=== PATIENT | female | born 1965 | race Hispanic/Latino ===

== ENCOUNTER 2019-08-26 03:59 | Emergency (ER) | payer OTHER ==
[2019-08-26] MEDS ORDERED: IBUPROFEN 400 MG TAB ONE (05:05)
[2019-08-26] MEDS ORDERED: dexAMETHasone 4 MG TAB ONE (05:05)
[2019-08-26] MEDS ORDERED: IBUPROFEN 200 MG TAB PO ONE (05:05)
--- NOTE | 2019-08-26 05:46 | EDPHYS ---
Physician Documentation [facility] Name: Maci Martines Age: 54 yrs Sex: Female : 1965 Arrival Date: 08/26/2019 Time: 04:00 Bed 5 Private MD: ED Physician Roderick Jackson HPI: 08/26 05:02 This 54 yrs old Female presents to ER via Ambulatory with complaints of karuna Shoulder Pain. 05:02 The patient or guardian complains of decreased range of motion, an injury, pain. right karuna shoulder. Context: The problem was sustained outdoors. Onset: The symptoms/episode began/occurred 2 week(s) ago. Modifying factors: the symptoms are alleviated by nothing. remaining still, The symptoms are aggravated by lifting weight, movement. Associated signs and symptoms: The patient has no apparent associated signs or symptoms. Severity of symptoms: At their worst the symptoms were moderate, in the emergency department the symptoms are unchanged. Treatment prior to arrival includes: no previous treatment. The patient has not experienced similar symptoms in the past. 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 - Social history:: Smoking status: Patient/guardian denies using tobacco, Patient/guardian denies using alcohol, street drugs. - Ebola Screening: : Patient negative for fever greater than or equal to 101.5 degrees Fahrenheit, and additional compatible Ebola Virus Disease symptoms Patient denies exposure to infectious person Patient denies travel to an Ebola-affected area in the 21 days before illness onset. - Family history:: not pertinent. ROS: 05:02 Constitutional: Negative for fever, chills, and weight loss, Eyes: Negative for injury, karuna pain, redness, and discharge, ENT: Negative for injury, pain, and discharge, Neck: Negative for injury, pain, and swelling, Cardiovascular: Negative for chest pain, palpitations, and edema, Respiratory: Negative for shortness of breath, cough, wheezing, and pleuritic chest pain, Abdomen/GI: Negative for abdominal pain, nausea, vomiting, diarrhea, and constipation, Back: Negative for injury and pain, : Negative for injury, bleeding, discharge, and swelling, Skin: Negative for injury, rash, and discoloration, Neuro: Negative for headache, weakness, numbness, tingling, and seizure, Psych: Negative for depression, anxiety, suicide ideation, homicidal ideation, and hallucinations, Allergy/Immunology: Negative for hives, rash, and allergies, Endocrine: Negative for neck swelling, polydipsia, polyuria, polyphagia, and marked weight changes, Hematologic/Lymphatic: Negative for swollen nodes, abnormal bleeding, and unusual bruising. 05:02 MS/extremity: Positive for decreased range of motion, pain, tenderness, of the anterior aspect of right shoulder and posterior aspect of right shoulder. Exam: 05:02 Constitutional: This is a well developed, well nourished patient who is awake, alert, karuna and in no acute distress. Head/Face: Normocephalic, atraumatic. Eyes: Pupils equal round and reactive to light, extra-ocular motions intact. Lids and lashes normal. Conjunctiva and sclera are non-icteric and not injected. Cornea within normal limits. Periorbital areas with no swelling, redness, or edema. ENT: Nares patent. No nasal discharge, no septal abnormalities noted. Tympanic membranes are normal and external auditory canals are clear. Oropharynx with no redness, swelling, or masses, exudates, or evidence of obstruction, uvula midline. Mucous membranes moist. Neck: Trachea midline, no thyromegaly or masses palpated, and no cervical lymphadenopathy. Supple, full range of motion without nuchal rigidity, or vertebral point tenderness. No Meningismus. Chest/axilla: Normal chest wall appearance and motion. Nontender with no deformity. No lesions are appreciated. Cardiovascular: Regular rate and rhythm with a normal S1 and S2. No gallops, murmurs, or rubs. Normal PMI, no JVD. No pulse deficits. Respiratory: Lungs have equal breath sounds bilaterally, clear to auscultation and percussion. No rales, rhonchi or wheezes noted. No increased work of breathing, no retractions or nasal flaring. Abdomen/GI: Soft, non-tender, with normal bowel sounds. No distension or tympany. No guarding or rebound. No evidence of tenderness throughout. Back: No spinal tenderness. No costovertebral tenderness. Full range of motion. Skin: Warm, dry with normal turgor. Normal color with no rashes, no lesions, and no evidence of cellulitis. MS/ Extremity: Pulses equal, no cyanosis. Neurovascular intact. Full, normal range of motion. Neuro: Awake and alert, GCS 15, oriented to person, place, time, and situation. Cranial nerves II-XII grossly intact. Motor strength 5/5 in all extremities. Sensory grossly intact. Cerebellar exam normal. Normal gait. Psych: Awake, alert, with orientation to person, place and time. Behavior, mood, and affect are within normal limits. Vital Signs: 04:11 BP 145 / 120; Pulse 92; Resp 19; Temp 97.8; Pulse Ox 99% ; Weight 75.75 kg; Height 5 rr5 ft. 0 in. (152.40 cm); Pain 10/10; 04:57 BP 142 / 70; Pulse 97; Resp 19; Pulse Ox 99% ; rr5 05:56 BP 133 / 67; Pulse 85; Resp 16; Pulse Ox 99% ; rr5 04:11 Body Mass Index 32.61 (75.75 kg, 152.40 cm) rr5 MDM: 04:54 Patient medically screened. [facility] 05:04 Data reviewed: vital signs, nurses notes, radiologic studies, plain films. [facility] 08/26 04:38 Order name: Shoulder Right (2 View) XRAY rr5 08/26 05:02 Order name: Sling; Complete Time: 05:53 [facility] Administered Medications: 05:07 Drug: Motrin 600 mg Route: PO; rr5 05:56 Follow up: Response: No adverse reaction rr5 05:07 Drug: Decadron 4 mg Route: PO; rr5 05:55 Follow up: Response: No adverse reaction rr5 Disposition: 08/26/19 05:45 Discharged to Home. Impression: Pain in right shoulder. - Condition is Stable. - Discharge Instructions: Joint Pain, Musculoskeletal Pain, Shoulder Pain, Shoulder Pain, [id number]. - Prescriptions for Tylenol- Codeine #3 300-30 mg Oral Tablet - take 2 tablet by ORAL route every 6 hours As needed; 30 tablet. Motrin IB 200 mg Oral Tablet - take 2 tablet by ORAL route every 6 hours As needed as needed with food; 30 tablet. Valium 2 mg Oral Tablet - take 1 tablet by ORAL route every 8 hours As needed; 20 tablet. Medrol (Maco) 4 mg Oral Tablets, Dose Pack - take 1 tablet by ORAL route as directed - follow package instructions; 1 packet. - Medication Reconciliation Form, Thank You Letter, Antibiotic Education, Prescription Opioid Use form. - Follow up: Private Physician; When: 2 - 3 days; Reason: Recheck today's complaints, Continuance of care, Re-evaluation by your physician. Follow up: Steve Oneal; When: 2 - 3 days; Reason: Recheck today's complaints, Continuance of care, Re-evaluation by your physician. - Problem is new. - Symptoms have improved. Signatures: Dispatcher [employer] EDMO Roderick Jackson MD MD cha Roque, Raymond RN RN rr5 Corrections: (The following items were deleted from the chart) 05:57 05:45 08/26/2019 05:45 Discharged to Home. Impression: Pain in right shoulder. rr5 Condition is Stable. Discharge Instructions: Joint Pain, Musculoskeletal Pain, Shoulder Pain, Shoulder Pain, [id number]. Prescriptions for Tylenol-Codeine #3 300-30 mg Oral Tablet - take 2 tablet by ORAL route every 6 hours As needed; 30 tablet, Motrin IB 200 mg Oral Tablet - take 2 tablet by ORAL route every 6 hours As needed as needed with food; 30 tablet, Valium 2 mg Oral Tablet - take 1 tablet by ORAL route every 8 hours As needed; 20 tablet. and Forms are Medication Reconciliation Form, Thank You Letter, Antibiotic Education, Prescription Opioid Use. Follow up: Private Physician; When: 2 - 3 days; Reason: Recheck today's complaints, Continuance of care, Re-evaluation by your physician. Follow up: Steve Oneal; When: 2 - 3 days; Reason: Recheck today's complaints, Continuance of care, Re-evaluation by your physician. Problem is new. Symptoms have improved. karuna
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
[2019-08-26 06:52] VITALS: BP 133/67; TEMP 97.8; O2SAT 99
--- NOTE | 2019-08-26 12:04 | RAD REPORT ---
EXAM DESCRIPTION: RAD - Shoulder Right 2 View - 08/26/2019 5:27 am CLINICAL HISTORY: PAIN COMPARISON: No comparisons FINDINGS: No fracture or dislocation seen.
== END 2019-08-26 05:57 | disposition home or self-care (01) ==
LOC: ER 03:59
DX: M25.511 Pain in right shoulder (principal); E11.9 Type 2 diabetes mellitus without complications; I10 Essential (primary) hypertension; F41.9 Anxiety disorder, unspecified
CPT/HCPCS: 99284; J8540

== ENCOUNTER 2019-12-10 21:58 | Emergency (ER) | payer OTHER ==
--- OUTSIDE RECORDS SUMMARY | 2019-12-10 22:01 | XMS REPORT ---
:1965 [facility] Address [address] [place] [address] Dr. Collins [address] [place] [id number] Care Team Providers Name Role Phone Unavailable Unavailable Unavailable Problems This patient has no known problems. Allergies, Adverse Reactions, Alerts This patient has no known allergies or adverse reactions. Medications This patient has no known medications.
[2019-12-10] MEDS ORDERED: LIDOCAINE 1% MPF 5 ML VIAL ONE (22:22)
--- NOTE | 2019-12-10 22:52 | ER ---
Nurse's Notes [facility] Name: Maci Martines Age: 54 yrs Sex: Female : 1965 Arrival Date: 12/10/2019 Time: 22:01 Bed 26 Private MD: Diagnosis: Cutaneous abscess of groin Presentation: 12/10 22:05 Presenting complaint: Patient states: Pt reports boil her vaginal area states it ea started two days ago got and got worse today. Pt reports it hurts to walk. States she started having a migraine. Transition of care: patient was not received from another setting of care. Onset of symptoms was December 10, 2019. Risk Assessment: Do you want to hurt yourself or someone else? Patient reports no desire to harm self or others. Initial Sepsis Screen: Does the patient meet any 2 criteria? HR > 90 bpm. Does the patient have a suspected source of infection? No. Patient's initial sepsis screen is negative. Care prior to arrival: None. 22:05 Method Of Arrival: Ambulatory ea 22:05 Acuity: TAYA 3 ea Triage Assessment: 22:10 General: Appears in no apparent distress. uncomfortable, Behavior is calm, cooperative, vc appropriate for age. Pain: Complains of pain in groin. RN LVN: 22:07 LMP N/A - Hysterectomy ea Historical: - Allergies: 22:09 No Known Allergies; ea - Home Meds: 22:09 Humalog Sub-Q [Active]; Lantus Sub-Q [Active]; trazodone 50 mg Oral tab nightly ea [Active]; Synthroid 100 mcg Oral tab 1 tab once daily [Active]; - PMHx: 22:09 Anxiety; Fibromyalgia; Diabetes - IDDM; Hypertension; ulcerative colitis; Migraines; ea - PSHx: 22:09 Hysterectomy; ea - Immunization history:: Adult Immunizations up to date. - Coronavirus screen:: The patient has NOT traveled to [place] in the past 14 days. - Social history:: Smoking status: Patient denies any tobacco usage or history of. - Ebola Screening: : No symptoms or risks identified at this time. Screenin:08 Abuse screen: Denies threats or abuse. Nutritional screening: No deficits noted. ea Tuberculosis screening: No symptoms or risk factors identified. Fall Risk None identified. Assessment: 22:30 General: Appears in no apparent distress. uncomfortable, Behavior is calm, cooperative, vc appropriate for age. Pain: Complains of pain in groin. Neuro: Level of Consciousness is awake, alert, obeys commands, Oriented to person, place, time. Cardiovascular: Patient's skin is warm and dry. Respiratory: Respiratory effort is even, unlabored, Respiratory pattern is regular, symmetrical. GI: No signs and/or symptoms were reported involving the gastrointestinal system. : Reports vaginal bleeding that is pain and inflammation to pubis area. EENT: No signs and/or symptoms were reported regarding the EENT system. Derm: Wound noted mons pubis and prepuce. Musculoskeletal: Circulation, motion, and sensation intact. Range of motion: intact in all extremities. 23:00 Reassessment: Patient and/or family updated on plan of care and expected duration. Pain vc level reassessed. Patient is alert, oriented x 3, equal unlabored respirations, skin warm/dry/pink. Patient states feeling better. Patient states symptoms have improved. Vital Signs: 22:07 BP 157 / 100; Pulse 113; Resp 18; Temp 98.1; Pulse Ox 98% on R/A; Weight 76.66 kg; ea Height 5 ft. (152.40 cm); Pain 10/10; 23:00 BP 148 / 96; Pulse 105; Resp 18; Pulse Ox 98% on R/A; vc 22:07 Body Mass Index 33.01 (76.66 kg, 152.40 cm) ea ED Course: 22:01 Patient arrived in ED. ag3 22:07 Triage completed. ea 22:09 Arm band placed on right wrist. Patient placed in an exam room, on a stretcher, on ea pulse oximetry. 22:09 Patient has correct armband on for positive identification. Placed in gown. Bed in low ea position. Call light in reach. 22:18 Robinson Montero NP is PHCP. pm1 22:18 Nico Echavarria MD is Attending Physician. pm1 22:27 Syeda Lehman RN is Primary Nurse. vc 22:45 Assist provider with I \T\ D: of an abscess on Set up I\T\D tray. Performed by Robinson Montero NP Culture sent to lab. Wound packed. iodoform gauze, Dressing with 4X4s, Patient tolerated well. 22:45 Patient did not have IV access during this emergency room visit. vc 22:51 Acosta Subramanian MD is Referral Physician. pm1 23:38 Wound Culture Sent. vc Administered Medications: 23:02 Drug: Tetanus-Diphtheria Toxoid Adult 0.5 ml {Hearing Aid Assembly Supervisor: [employer]. Exp: vc 11/08/2021. Lot #: [id number]. } Route: IM; Site: right deltoid; 23:15 Follow up: Response: No adverse reaction vc 23:11 Drug: Dana 10 mg-325 mg 1 tabs Route: PO; vc 23:42 Follow up: Response: No adverse reaction; Medication administered at discharge. vc 23:17 Drug: Clindamycin 600 mg Route: IM; Site: right ventrogluteal; vc 23:42 Follow up: Response: Medication administered at discharge. vc 23:18 Drug: Lidocaine (1 %) 1 amp Volume: 5 ml; Route: Infiltration; vc Outcome: 22:51 Discharge ordered by MD. pm1 23:15 Discharged to home ambulatory. vc 23:15 Condition: good 23:15 Discharge instructions given to patient. 23:19 Patient left the ED. vc Signatures: Robinson Montero, COMMUNITY CENTER COORDINATOR COMMUNITY CENTER COORDINATOR pm1 Shahnaz Case RN RN ea Gomez, Alice ag3 Syeda Lehman RN RN vc
--- NOTE | 2019-12-10 22:52 | EDPHYS ---
Physician Documentation [facility] Name: Maci Martines Age: 54 yrs Sex: Female : 1965 Arrival Date: 12/10/2019 Time: 22:01 Bed 26 Private MD: ED Physician Nico Echavarria HPI: 12/10 22:35 This 54 yrs old Female presents to ER via Ambulatory with complaints of pm1 Vaginal Pain. 22:35 the patient presents with a swollen area of the groin. Description: swollen, tense. pm1 Onset: The symptoms/episode began/occurred 2 day(s) ago. Possible cause(s): unknown. Associated signs and symptoms: Pertinent positives: drainage, Pertinent negatives: fever. Modifying factors: the symptoms are alleviated by nothing, the symptoms are aggravated by movement, walking. Severity of symptoms: in the emergency department the symptoms are actually worse. The patient has not experienced similar symptoms in the past. The patient has not recently seen a physician. 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 - Coronavirus screen:: The patient has NOT traveled to [place] in the past 14 days. - Social history:: Smoking status: Patient denies any tobacco usage or history of. - Ebola Screening: : No symptoms or risks identified at this time. ROS: 22:35 Constitutional: Negative for fever, chills, and weight loss, Cardiovascular: Negative pm1 for chest pain, palpitations, and edema, Respiratory: Negative for shortness of breath, cough, wheezing, and pleuritic chest pain, Abdomen/GI: Negative for abdominal pain, nausea, vomiting, diarrhea, and constipation, Back: Negative for injury and pain, : Negative for injury, bleeding, discharge, and swelling, MS/Extremity: Negative for injury and deformity. 22:35 Neuro: Negative for weakness, numbness, tingling, and seizure, Positve for headache 22:35 Skin: Positive for swelling, of the groin. Exam: 23:56 Constitutional: This is a well developed, well nourished patient who is awake, alert, pm1 and in no acute distress. Head/Face: Normocephalic, atraumatic. Neck: Trachea midline, no thyromegaly or masses palpated, and no cervical lymphadenopathy. Supple, full range of motion without nuchal rigidity, or vertebral point tenderness. No Meningismus. Chest/axilla: Normal chest wall appearance and motion. Nontender with no deformity. No lesions are appreciated. Cardiovascular: Regular rate and rhythm with a normal S1 and S2. No gallops, murmurs, or rubs. Normal PMI, no JVD. No pulse deficits. Respiratory: Lungs have equal breath sounds bilaterally, clear to auscultation and percussion. No rales, rhonchi or wheezes noted. No increased work of breathing, no retractions or nasal flaring. Abdomen/GI: Soft, non-tender, with normal bowel sounds. No distension or tympany. No guarding or rebound. No evidence of tenderness throughout. 23:56 Skin: Appearance: normal except for affected area, abscess, that is small, of the mons pm1 pubis, with pointing, that is subtle, no surrounding cellulitis, no drainage. 23:58 : chaperoned by Syeda THAO. pm1 Vital Signs: 22:07 BP 157 / 100; Pulse 113; Resp 18; Temp 98.1; Pulse Ox 98% on R/A; Weight 76.66 kg; ea Height 5 ft. (152.40 cm); Pain 10/10; 23:00 BP 148 / 96; Pulse 105; Resp 18; Pulse Ox 98% on R/A; vc 22:07 Body Mass Index 33.01 (76.66 kg, 152.40 cm) ea Procedures: 22:47 I \T\ D: Incision and drainage was performed for an abscess of the left mons pubis pm1 Prepped with Betadine, Anesthetized with 4 ml's 1% Lidocaine. Incised with #11 blade. Drained small amount serosanguinous fluid. Packed with iodoform gauze, Dressing: non-Adherent dressing, the patient tolerated the procedure well. MDM: 22:18 Patient medically screened. pm1 22:47 Data reviewed: vital signs. Data interpreted: Pulse oximetry: on room air is 98 %. pm1 Interpretation: normal. Counseling: I had a detailed discussion with the patient and/or guardian regarding: the historical points, exam findings, and any diagnostic results supporting the discharge/admit diagnosis, the need for outpatient follow up, for definitive care, a general surgeon, to return to the emergency department if symptoms worsen or persist or if there are any questions or concerns that arise at home. 12/10 22:50 Order name: Wound Culture pm1 12/10 22:28 Order name: Incision \T\ Drainage Setup; Complete Time: 22:32 pm1 Administered Medications: 23:02 Drug: Tetanus-Diphtheria Toxoid Adult 0.5 ml {Interactive Web Developer: test company. Exp: vc 11/08/2021. Lot #: [id number]. } Route: IM; Site: right deltoid; 23:15 Follow up: Response: No adverse reaction vc 23:11 Drug: [place] 10 mg-325 mg 1 tabs Route: PO; vc 23:42 Follow up: Response: No adverse reaction; Medication administered at discharge. vc 23:17 Drug: Clindamycin 600 mg Route: IM; Site: right ventrogluteal; vc 23:42 Follow up: Response: Medication administered at discharge. vc 23:18 Drug: Lidocaine (1 %) 1 amp Volume: 5 ml; Route: Infiltration; vc Disposition: 12/10/19 22:51 Discharged to Home. Impression: Cutaneous abscess of groin. - Condition is Stable. - Discharge Instructions: Skin Abscess, Incision and Drainage. - Prescriptions for Clindamycin HCl 300 mg Oral Capsule - take 1 capsule by ORAL route every 6 hours for 10 days; 40 capsule. Tylenol- Codeine #3 300-30 mg Oral Tablet - take 2 tablets by ORAL route every 6 hours As needed; 20 tablet. - Medication Reconciliation Form, Thank You Letter, Antibiotic Education, Prescription Opioid Use form. - Follow up: Emergency Department; When: As needed; Reason: Worsening of condition. Follow up: Acosta Subramanian MD; When: 2 - 3 days; Reason: Recheck today's complaints, Continuance of care, Re-evaluation by your physician. - Problem is new. - Symptoms have improved. Addendum: 12/17/2019 16:32 Co-signature as Attending Physician, Nico Echavarria MD. m a2 Signatures: Dispatcher [employer] Robinson Magaña NP OPERATOR AUTOMATED PROCESS pm1 Shahnaz Case, RN RN Nico Jonas MD MD ma2 Syeda Lehman RN RN vc Corrections: (The following items were deleted from the chart) 12/10 23:19 22:51 12/10/2019 22:51 Discharged to Home. Impression: Cutaneous abscess of groin. vc Condition is Stable. Forms are Medication Reconciliation Form, Thank You Letter, Antibiotic Education, Prescription Opioid Use. Follow up: Emergency Department; When: As needed; Reason: Worsening of condition. Follow up: Acosta Subramanian; When: 2 - 3 days; Reason: Recheck today's complaints, Continuance of care, Re-evaluation by your physician. Problem is new. Symptoms have improved. pm1 23:56 22:35 Neuro: Negative for headache, weakness, numbness, tingling, and seizure, pm1 pm1 23:58 23:56 : Pelvic Exam: External exam: pm1 pm1
[2019-12-10] MEDS ORDERED: HYDROCODONE/APAP 10/325 TAB ONE (22:59)
[2019-12-10] MEDS ORDERED: TETANUS & DIPHTHERIA TOX,ADULT 0.5 ML VIAL ONE (22:59)
[2019-12-10] MEDS ORDERED: CLINDAMYCIN IV 150 MG/ML (4 mL) VIAL ONE (22:59)
[2019-12-11 01:45] VITALS: BP 157/100; TEMP 98.1; O2SAT 98
== END 2019-12-10 23:19 | disposition home or self-care (01) ==
LOC: ER 21:58
PROC: 0J9C0ZZ Drainage of Pelvic Region Subcutaneous Tissue and Fascia, Open Approach (ICD-10-PCS; principal; 2019-12-10)
DX: L02.214 Cutaneous abscess of groin (principal); E11.9 Type 2 diabetes mellitus without complications; F41.9 Anxiety disorder, unspecified; Z79.4 Long term (current) use of insulin
CPT/HCPCS: 87070; 87205; 87077; 87186; 90471; 90714; 96372; 99284; 10060; S0077

== ENCOUNTER 2019-12-18 06:34 | Day surgery (SDC) | payer OTHER ==
--- NOTE | 2019-12-17 16:26 | RAD REPORT ---
EXAM DESCRIPTION: RAD - Chest Pa And Lat (2 Views) - 12/17/2019 4:16 pm CLINICAL HISTORY: preop Chest pain. COMPARISON: CHEST PA AND LAT 2 VIEW dated 11/18/2014; CHEST SINGLE VIEW dated 01/16/2013 FINDINGS: The lungs are underinflated resulting in vascular crowding. The heart is normal in size. N o displaced fractures. IMPRESSION: Underinflated lungs resulting in vascular crowding.
[2019-12-17 16:27] LABS: Absolute Lymphocytes (CBC) 3.3 K/uL (0.7-4.9); Lymphocytes % 39.9 % (15.3-44.8); MPV 10.5 fL (7.6-11.3); RBC Red Blood Cell Count 4.59 M/uL (3.86-4.86)
[2019-12-17 16:40] LABS: BUN Blood Urea Nitrogen 10 mg/dL (7-18); Bicarbonate 26 mmol/L (21-32); Glucose Level 241 mg/dL (74-106); Potassium 3.5 mmol/L (3.5-5.1); Sodium Level 136 mmol/L (136-145)
--- OUTSIDE RECORDS SUMMARY | 2019-12-18 06:37 | XMS REPORT ---
:1965 Author Organization [facility] Address [address] [place] [address] Dr. Collins [address] [place] [id number] Care Team Providers Name Role Phone Unavailable Unavailable Unavailable Problems This patient has no known problems. Allergies, Adverse Reactions, Alerts This patient has no known allergies or adverse reactions. Medications This patient has no known medications.
[2019-12-18] MEDS ORDERED: CEFAZOLIN/SWI 1gm 1 GM/10 ML SYR ONE (07:05)
[2019-12-18] MEDS ORDERED: NA CHLORIDE 0.9% 1,000 ML ONE (07:05)
[2019-12-18] MEDS ORDERED: MIDAZOLAM HCL 2 MG/2 ML INJ ONE (07:28)
[2019-12-18] MEDS ORDERED: FENTANYL CITR 100 MCG/2 ML ONE (07:28)
[2019-12-18] MEDS ORDERED: propofoL 200 MG/20 ML VIAL IV ONE (07:28)
[2019-12-18] MEDS ORDERED: LIDOCAINE 1% MPF 5 ML VIAL ONE (07:29)
--- NOTE | 2019-12-18 08:43 | EKG ---
Test Date: 2019-12-17 Test Time: 16:00:15 Band Salvager: JOHN MEASUREMENT RESULTS: Intervals: Rate: 77 OR: 176 QRSD: 92 QT: 398 QTc: 450 [place]: P: 35 OR: 176 QRS: -6 T: 22 INTERPRETIVE STATEMENTS: Normal sinus rhythm Normal ECG Compared to ECG 01/16/2013 04:53:08 No significant changes Electronically Signed On 12-18-19 08:41:26 COMMUNICATIONS TECHNICIAN by Jeffrey Lance
[2019-12-18] MEDS ORDERED: KETOROLAC 30 MG/ML INJ ONE (08:46)
[2019-12-18] MEDS ORDERED: ONDANSETRON 4 MG/2 ML VIAL ONE (08:49)
--- NOTE | 2019-12-18 09:05 | P.BOP ---
Preoperative diagnosis: suprapubic abscess cellulitis Postoperative diagnosis: same Primary procedure: Incision and drainage complex abscess suprapubic 7 x 7 x 1.5 cm Estimated blood loss: <20cc Specimen: pus and devitalized tissue Findings: abscess Anesthesia: General Complications: None Transferred to: Recovery Room Condition: Good
[2019-12-18] MEDS: MEPERIDINE HCL 50 MG/ML ONE ×2 (09:28→09:35)
[2019-12-18] MEDS ORDERED: PROMETHAZINE INJ 25 MG/ML AMP ONE (09:48)
[2019-12-18 10:11] VITALS: BP 157/78; TEMP 97.4; O2SAT 98
[2019-12-18] MEDS ORDERED: CODEINE 30MG/APAP 300MG TAB ONE (10:21)
--- NOTE | 2019-12-18 21:17 | DS ---
Date of Discharge: 12/18/2019 Diagnoses: Suprapubic abscess and cellulitis. Procedures: Incision and drainage of complex abscess suprapubic 7 x 7 x 1.5 cm. Disposition: Home. Activity: As tolerated. No heavy lifting. Followup: In 1 week. Call for appointment in [phone]. Normal saline daily. Medications: Include Tylenol No. 3 q.4 hours p.r.n. pain. Patient already on antibiotics. CASSIUS/HEIDI Voice ID: [id number] Report ID: [id number]
--- NOTE | 2019-12-18 21:17 | OP ---
Date of Procedure: 12/18/2019 Surgeon: Acosta Subramanian MD Diagnoses: Suprapubic abscess, cellulitis. Postoperative Diagnosis: Suprapubic abscess, cellulitis. Procedure: Incision and drainage, complex abscess suprapubic 7 x 7 x 1.5 cm. Anesthesia: General plus local. Indications: This is a case of a 54-year-old patient, comes to us with cellulitis and a lump over th e suprapubic area, associated with increased temperature and erythema. Patient went to the ER, recei jermain an I and D, but did not a complete or improve her condition so she has to be booked for surgical incision and drainage. Previous I and D was done in ER. The benefits, alternatives, and risks of in cision and drainage fully explained to the patient, which include but are not limited to infection, b leeding, damage to adjacent structures, anesthesia complication, recurrence, IN, and even . She also understands this may not relieve symptoms. She might need more than one surgical intervention and she understands she will require wound care. She signed the consent. Description Of Procedure: Patient was brought to the operating room, placed in supine position. Ane sthesia was given without complication. Suprapubic area was prepped and draped in a sterile fashion. Local anesthesia was applied followed by a sharp incision of the skin. We have to remove part of t he skin, opened loculations were about 7 x 7 cm and about 1.5 cm deep. All the loculations were expl ored and opened. Cultures were obtained. Irrigation was done. Necrotic tissue was removed and then the area was packed with wet-to-dry dressing. Patient tolerated the procedure well. Patient was sent to recovery in stable condition. CASSIUS/HEIDI Voice ID: [id number] Report ID: [id number]
== END 2019-12-18 10:59 | disposition home or self-care (01) ==
LOC: OR 06:34
PROVIDERS: ATTEND Surgery
PROC: 0J9C0ZZ Drainage of Pelvic Region Subcutaneous Tissue and Fascia, Open Approach (ICD-10-PCS; principal; 2019-12-18 08:00)
DX: L02.211 Cutaneous abscess of abdominal wall (principal); E11.9 Type 2 diabetes mellitus without complications; I10 Essential (primary) hypertension; Z90.49 Acquired absence of other specified parts of digestive tract; E07.9 Disorder of thyroid, unspecified; Z90.710 Acquired absence of both cervix and uterus; Z83.3 Family history of diabetes mellitus; Z82.49 Family history of ischemic heart disease and other diseases of the circulatory system
CPT/HCPCS: 10061; 93005; 87070; 85025; 80048; 36415; 87205; 82947; 88304; 87075; 71046; J2704; J2550; J2250; J3010; J2175; J0690; J7030; J2405

== ENCOUNTER 2020-04-07 18:09 | Emergency (ER) | payer OTHER ==
--- NOTE | 2020-04-07 19:50 | EDPHYS ---
Physician Documentation [facility] Name: Maci Martines Age: 54 yrs Sex: Female : 1965 Arrival Date: 04/07/2020 Time: 18:15 Bed 20 Private MD: ED Physician Silvano Lucero HPI: 04/07 22:18 This 54 yrs old Female presents to ER via Ambulatory with complaints of Dog tw4 Bite. 22:18 by a dog. Onset: The symptoms/episode began/occurred today. Animal information: The tw4 animal was reported to appear healthy. Secondary to the bite the patient reports pain. Associated signs and symptoms: The patient has no apparent associated signs or symptoms. The patient has not experienced similar symptoms in the past. 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 - Social history:: Smoking status: Patient denies any tobacco usage or history of. ROS: 22:18 Constitutional: Negative for fever, chills, and weight loss, Eyes: Negative for injury, tw4 pain, redness, and discharge, Cardiovascular: Negative for chest pain, palpitations, and edema, Respiratory: Negative for shortness of breath, cough, wheezing, and pleuritic chest pain, Abdomen/GI: Negative for abdominal pain, nausea, vomiting, diarrhea, and constipation. 22:18 Back: Negative for injury and pain, Skin: Negative for injury, rash, and discoloration, Neuro: Negative for headache, weakness, numbness, tingling, and seizure. 22:18 MS/extremity: Positive for injury or acute deformity, abrasion, contusion, swelling, tenderness. Exam: 22:18 Constitutional: This is a well developed, well nourished patient who is awake, alert, tw4 and in no acute distress. Head/Face: Normocephalic, atraumatic. Chest/axilla: Normal chest wall appearance and motion. Nontender with no deformity. No lesions are appreciated. Cardiovascular: Regular rate and rhythm with a normal S1 and S2. No gallops, murmurs, or rubs. Normal PMI, no JVD. No pulse deficits. Respiratory: Lungs have equal breath sounds bilaterally, clear to auscultation and percussion. No rales, rhonchi or wheezes noted. No increased work of breathing, no retractions or nasal flaring. Abdomen/GI: Soft, non-tender, with normal bowel sounds. No distension or tympany. No guarding or rebound. No evidence of tenderness throughout. 22:18 Musculoskeletal/extremity: Extremities: noted in the right tricep: abrasion, contusion. 22:18 Musculoskeletal/extremity: Extremities: swelling, tenderness, Circulation is intact in tw4 all extremities. Compartment Syndrome exam of affected extremity: is normal. Vital Signs: 19:19 BP 163 / 77; Pulse 89; Resp 15; Temp 97.2; Pulse Ox 99% on R/A; Weight 75.75 kg; Height vc 4 ft. 11 in. (149.86 cm); Pain 5/10; 19:19 Body Mass Index 33.73 (75.75 kg, 149.86 cm) vc MDM: 19:33 Patient medically screened. tw4 22:18 Differential diagnosis: superficial laceration, tendon injury, vascular injury. Data tw4 reviewed: vital signs, nurses notes. Counseling: I had a detailed discussion with the patient and/or guardian regarding: the historical points, exam findings, and any diagnostic results supporting the discharge/admit diagnosis. Medication response: [place]. Response to treatment: and as a result, I will discharge patient. Special discussion: I discussed with the patient/guardian in detail that at this point there is no indication for admission to the hospital. It is understood, however, that if the symptoms persist or worsen the patient needs to return immediately for re-evaluation. Administered Medications: 20:10 Drug: Augmentin 875 mg Route: PO; wh 20:21 Follow up: Response: No adverse reaction 20:10 Drug: [place] 5 mg-325 mg 1 tabs Route: PO; wh 20:22 Follow up: Response: No adverse reaction; Pain is decreased; RASS: Alert and Calm (0) 20:10 Drug: Ibuprofen 800 mg Route: PO; 20:22 Follow up: Response: No adverse reaction; Pain is decreased Disposition: 04/07/20 19:49 Discharged to Home. Impression: Bitten by dog, Abrasion of right upper arm. - Condition is Stable. - Discharge Instructions: Animal Bite. - Prescriptions for Augmentin 875- 125 mg Oral Tablet - take 1 tablet by ORAL route every 12 hours for 10 days; 20 tablet. Ibuprofen 800 mg Oral Tablet - take 1 tablet by ORAL route every 8 hours As needed take with food; 30 tablet. Tylenol- Codeine #3 300-30 mg Oral Tablet - take 2 tablet by ORAL route every 6 hours As needed; 6 tablet. - Medication Reconciliation Form, Thank You Letter, Antibiotic Education, Prescription Opioid Use form. - Follow up: Private Physician; When: Upon discharge from the Emergency Department; Reason: Recheck today's complaints, Continuance of care, Re-evaluation by your physician. - Problem is new. - Symptoms are unchanged. Signatures: Julia Tierney, RN RN Yarely Juarez Terrence, MD MD tw4 Corrections: (The following items were deleted from the chart) 19:16 18:50 Allergies: Codeine; [facility] 19:16 18:50 Home Meds: amlodipine 5 mg tab 1 tab once daily; vc 20:26 19:49 04/07/2020 19:49 Discharged to Home. Impression: Bitten by dog; Abrasion of right upper arm. Condition is Stable. Forms are Medication Reconciliation Form, Thank You Letter, Antibiotic Education, Prescription Opioid Use. Follow up: Private Physician; When: Upon discharge from the Emergency Department; Reason: Recheck today's complaints, Continuance of care, Re-evaluation by your physician. Problem is new. Symptoms are unchanged. tw4
--- NOTE | 2020-04-07 19:50 | ER ---
Nurse's Notes [facility] Name: Maci Martines Age: 54 yrs Sex: Female : 1965 Arrival Date: 04/07/2020 Time: 18:15 Bed 20 Private MD: Diagnosis: Bitten by dog;Abrasion of right upper arm Presentation: 04/07 18:47 Method Of Arrival: Ambulatory iw 18:47 Acuity: TAYA 4 iw 19:19 Chief complaint: Patient states: "We had a young one startle the dog while he was vc sleeping, when he woke up he bit me about 3-4 times.". Coronavirus screen: Proceed with normal triage. Patient denies a cough. Patient denies shortness of breath or difficulty breathing. Patient denies measured and/or subjective temperature greater than 100.4F prior to today's visit. Patient denies travel on a cruise ship or to a country the [facility] currently lists as an affected area. Patient denies contact with known and/or suspected case of COVID-19. Ebola Screen: No symptoms or risks identified at this time. Initial Sepsis Screen: Does the patient meet any 2 criteria? No. Patient's initial sepsis screen is negative. Does the patient have a suspected source of infection? No. Patient's initial sepsis screen is negative. Risk Assessment: Do you want to hurt yourself or someone else? Patient reports no desire to harm self or others. Onset of symptoms was April 07, 2020. Triage Assessment: 20:00 Bite description: bite sustained to right arm by a dog, animal information: vaccination(s) is current. 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 - Social history:: Smoking status: Patient denies any tobacco usage or history of. Screenin:00 Abuse screen: Denies threats or abuse. Denies injuries from another. Nutritional wh screening: No deficits noted. Tuberculosis screening: No symptoms or risk factors identified. Fall Risk None identified. Assessment: 19:45 General: Appears in no apparent distress. Behavior is calm, cooperative, appropriate wh for age. Pain: Complains of pain in right arm. Neuro: Level of Consciousness is awake, alert, obeys commands, Oriented to person, place, time, situation, Appropriate for age. Cardiovascular: Capillary refill < 3 seconds. Respiratory: Airway is patent Respiratory effort is even, unlabored, Respiratory pattern is regular, symmetrical. GI: Abdomen is flat, non-distended. : No signs and/or symptoms were reported regarding the genitourinary system. EENT: No signs and/or symptoms were reported regarding the EENT system. Derm: Skin is intact, is healthy with good turgor, Skin is pink, warm \\T\\ dry. normal, animal bite on Right Arm. Musculoskeletal: Circulation, motion, and sensation intact. 20:02 Reassessment: Animal control was notified and Officer in the room interviewing Pt. wh Vital Signs: 19:19 BP 163 / 77; Pulse 89; Resp 15; Temp 97.2; Pulse Ox 99% on R/A; Weight 75.75 kg; Height vc 4 ft. 11 in. (149.86 cm); Pain 5/10; 19:19 Body Mass Index 33.73 (75.75 kg, 149.86 cm) vc ED Course: 18:15 Patient arrived in ED. bp1 18:49 Triage completed. iw 19:33 Silvano Lucero MD is Attending Physician. tw4 19:53 Yarely Jaurez is Primary Nurse. wh 20:00 Arm band placed on left wrist. wh 20:00 Patient has correct armband on for positive identification. Bed in low position. Call wh light in reach. Side rails up X 1. Pulse ox on. NIBP on. 20:24 No provider procedures requiring assistance completed. Patient did not have IV access wh during this emergency room visit. Administered Medications: 20:10 Drug: Augmentin 875 mg Route: PO; wh 20:21 Follow up: Response: No adverse reaction 20:10 Drug: [place] 5 mg-325 mg 1 tabs Route: PO; wh 20:22 Follow up: Response: No adverse reaction; Pain is decreased; RASS: Alert and Calm (0) 20:10 Drug: Ibuprofen 800 mg Route: PO; 20:22 Follow up: Response: No adverse reaction; Pain is decreased Outcome: 19:49 Discharge ordered by . tw4 20:25 Discharged to home ambulatory, with family. 20:25 Condition: stable 20:25 Discharge instructions given to patient, family, Instructed on discharge instructions, follow up and referral plans. no drinking with medication, no driving heavy equipment, medication usage, wound care, POC Demonstrated understanding of instructions, follow-up care, medications, wound care, POC Prescriptions given X 3. 20:26 Patient left the ED. Signatures: Julia Tierney RN KEESHA Yarely Juarez Silvano Lucero MD MD 4 Syeda Lehman RN RN Megan Bains [facility] Corrections: (The following items were deleted from the chart) : 18:47 Chief complaint: Patient states: fell and hit my butt on Tuesday of of last vc week, now has pain when she gets up and down in bed : 18:47 Coronavirus screen: Proceed with normal triage. Patient denies a cough. Patient vc denies shortness of breath or difficulty breathing. Patient denies measured and/or subjective temperature greater than 100.4F prior to today's visit. Patient denies travel on a cruise ship or to a country the [facility] currently lists as an affected area. Patient denies contact with known and/or suspected case of COVID-19. : 18:47 Ebola Screen: Patient negative for fever greater than or equal to 101.5 degrees vc Fahrenheit, and additional compatible Ebola Virus Disease symptoms Patient denies exposure to infectious person. Patient denies travel to an Ebola-affected area in the 21 days before illness onset. No symptoms or risks identified at this time. : 18:47 Risk Assessment: Do you want to hurt yourself or someone else? Patient reports no vc desire to harm self or others. :15 18:47 Initial Sepsis Screen: Does the patient meet any 2 criteria? No. Patient's vc initial sepsis screen is negative. Does the patient have a suspected source of infection? No. Patient's initial sepsis screen is negative. iw : 18:47 Onset of symptoms was March 31, 2020 vc 19:15 18:47 BP 147 / 59; Pulse 75bpm; Resp 16bpm; Pulse Ox 99% RA; Temp 97.7F; 52.62 kg; vc Height 4 ft. 11 in.; BMI: 23.4; iw : 18:50 Allergies: Codeine; vc 19:16 18:50 Home Meds: amlodipine 5 mg tab 1 tab once daily; vc
--- OUTSIDE RECORDS SUMMARY | 2020-04-07 20:12 | XMS REPORT | Continuity of Care Document ---
:1965 Author Organization [facility] [place] Information [place] Care Team Providers Name Role Phone [facility] [place] Information Exchange Unavailable Un available Problems Problem Status Onset Classification Date Comments Sourc e Date Reported STROKE SYMPTOMS Active 06/03/20 [place] 16 [place] CVA Active 06/03/20 [place] [id number] [place] Discharge 05/29/20 06/01/2016 [facility] Diagnosis: Common 16 V[facility] dical migraine Center MIRGRAINE Active 05/29/[address] Diabetes mellitus Resolved Problem 06/07/2016 M [facility] (disorder) [place] Hypertensive Resolved Problem 06/07/2016 disorder, [place] systemic arterial (disorder) Hyperlipidemia Resolved Problem 06/07/2016 (disorder) [place] Hypothyroidism Resolved Problem 06/07/2016 (disorder) [place] Migraine without Active Problem 06/07/2016 [facility] aura (disorder) [facility] CEREBRAL Active [facility] INFARCTION, [place] UNSPECIFIED Medications Medication Details Route Status Patient Ordering Order Source Instructions Provider Date Pneumovax 23 Notes: (Same Inactive as: Pneumovax [place] 23) Refrigerate {21 See Active (Methylprednisolo Instructions, 2015 [place] ne 4 MG Oral PO, Take by Tablet [Medrol]) mouth as } Pack [Medrol directed on Dosepak] label., X 6 day, # 1 Pack, 0 Refill(s) Aspirin 325 MG 325 mg = 1 Active Oral Tablet tab, PO, 2015 [place] Daily, # 30 tab, 0 Refill(s) Pneumovax 23 Notes: (Same Inactive as: Pneumovax 2015 [place] 23) Refrigerate pneumococcal Notes: (Same Inactive capsular as: Pneumovax 2015 [place] polysaccharide 23) type 1 vaccine / Refrigerate pneumococcal capsular polysaccharide type 10A vaccine / pneumococcal capsular polysaccharide type 11A vaccine / pneumococcal capsular polysaccharide type 12F vaccine / pneumococcal capsular polysacchar Aspirin Notes: Take Inactive with food. 2015 [place] potassium Notes: (Same No Longer chloride as: K-Dur 20) Active 2015 [place] "Do Not Crush" With food and full glass of water losartan 25 mg 25 mg = 1 Active oral tablet tab, PO, 2015 [place] Daily, 0 Refill(s) levothyroxine 125 125 microgram Active mcg (0.125 mg) = 1 cap, PO, 2015 [place] oral capsule Daily, # 30 cap, 3 Refill(s) Saline Flush 0.9% Notes: (Same No Longer as: BD Active 2015 [place] Posiflush) Saline Flush 0.9% Notes: (Same No Longer as: BD Active 2015 [place] Posiflush) tramadol 50 mg = 1 Active [place] hydrochloride 50 tab, PO, Q4H, 2015 edical MG Oral Tablet PRN Pain, X Cente r 10 day, # 60 tab, 0 Refill(s) Isolyte S PH-7.4 Notes: (Same Inactive H [place] (Bolus) IV as: Isolyte S 2016 Medical PH 7.4) [place] tramadol Notes: Not to Inactive [place] hydrochloride 50 exceed 2016 Medical MG Oral Tablet 400mg/day. Center (Same As: [facility]) Reglan Notes: (Same Inactive [place] as: Reglan) [address] [place] [address] Ketorolac 4 days Inactive [place] MEDICATION 2016 [facility] WASTE Center Product Size: 30 mg Product Wasted: ___ mg Diphenhydramine Notes: (Same Inactive [place] as: Benadryl) 2016 [facility] Sodium Chloride 1,000 mL, Inactive [place] 0.154 MEQ/ML 2,000 ml/hr, 2016 Medica l Injectable Infuse Over: Center Solution 30 minutes, Route: IV, 1,000, Drug form: INJ, ONCE, Priority: STAT, Dosing Weight 71.364 kg, Start date: 05/29/16 14:45:00 CDT, Duration: 1 doses or times, Stop date: 05/29/16 14:45:00 CDT Allergies, Adverse Reactions, Alerts No Known Medication Allergies Immunizations Immunization Date Site Status Last Updated Comments Sour ce Given pneumococcal Right completed [facility] 23-valent 6 Deltoid vaccine Results Order Name Results Value Reference Date Interpretation Comments Shari rce Range ELECTROLYTE AGAP 11.6 10.0 - 08/12 MH S 20.0 /2015 [place] ELECTROLYTE B/C Ratio 17 6 - 25 08/12 MH S /2015 [place] ELECTROLYTE A/G Ratio 0.7 0.7 - 1.6 08/12 MH S /2015 [place] ELECTROLYTE Globulin 4.4 2.7 - 4.2 08/ MH S [place] ELECTROLYTE ALANINE 33 0 - 65 08/12 MH S AMINOTRANSFE /2015 [place] RASE ELECTROLYTE eGFR 115 / MH S Comment: The [place] eGFR is calculated using the CKD-EPI formula. In most young, healthy individuals the eGFR will be >90 mL/min/1.73m2 . The eGFR declines with age. An eGFR of 60-89 may be normal in some populations, particularly the elderly, for whom the CKD-EPI formula has not been extensively validated. Use of the eGFR is not recommended in the following populations:< br/>
Debbie viduals with unstable creatinine concentration s, including patients and those with serious co-morbid conditions.<b r/>
Patie nts with extremes in muscle mass or diet.

The data above are obtained from the National Kidney Disease Education Program (NKDEP) which additionally recommends that when the eGFR is used in patients with extremes of body mass index for purposes of drug dosing, the eGFR should be multiplied by the estimated BMI. ELECTROLYTE Bili Total 0.3 0.2 - 1.3 08/12 MH S [place] ELECTROLYTE Calcium Lvl 8.9 8.5 - 10.5 /12 MH S /2016 [place] ELECTROLYTE CO2 25 24 - 32 08/12 MH S /2016 [place] ELECTROLYTE ASPARTATE 25 0 - 37 08/12 MH S TRANSAMINASE /2015 [place] ELECTROLYTE Total 7.5 6.4 - 8.4 08/12 MH S Protein [place] ELECTROLYTE Glucose Lvl 87 70 - 99 /12 MH S [place] ELECTROLYTE Alk Phos 100 39 - 136 08/12 MH S /2015 [place] ELECTROLYTE Albumin Lvl 3.1 3.5 - 5.0 08/12 MH S [place] ELECTROLYTE Chloride Lvl 110 95 - 109 08/12 MH S /2015 [place] ELECTROLYTE Potassium 3.6 3.5 - 5.1 08/12 MH S Lvl /2015 [place] ELECTROLYTE BUN 8 7 - 22 08/ MH S /2015 [place] ELECTROLYTE Creatinine 0.47 0.50 - 08/12 MH S Lvl 1.40 /2015 [place] ELECTROLYTE Sodium Lvl 143 135 - 145 08/12 MH S /2015 [place] HEMATOLOGY Hgb 12.1 12.0 - 08 MH 16.0 [place] HEMATOLOGY Hct 36.2 36.0 - 08/12 MH 48.0 /2015 [place] HEMATOLOGY MCV 95.0 80.0 - 08 MH 98.0 /2015 [place] HEMATOLOGY WBC X 10x3 7.5 3.7 - 10.4 08/ MH /2015 [place] HEMATOLOGY RBC X 10x6 3.81 4.20 - 08/ MH 5.40 /2015 [place] HEMATOLOGY MCH 31.8 27.0 - 08 MH 31.0 [place] HEMATOLOGY RDW 12.5 11.5 - 08 MH 14.5 [place] HEMATOLOGY MPV 8.2 7.4 - 10.4 08/ MH /2015 [place] HEMATOLOGY MCHC 33.5 32.0 - 08 MH 36.0 [place] HEMATOLOGY Platelet 328 133 - 450 08/ MH /2015 [place] HEMATOLOGY Lymphocytes 28.9 20.0 - 08/ MH 40.0 [place] HEMATOLOGY Monocytes 8.2 2.0 - 12.0 06/04 MH /2015 [place] HEMATOLOGY Eosinophils 0.9 0.0 - 4.0 06/04 [place] HEMATOLOGY Basophils 1.3 0.0 - 1.0 08/ MH [place] HEMATOLOGY Segs 60.7 45.0 - 08/ MH 75.0 /2015 [place] HEMATOLOGY Segs-Bands # 4.6 1.5 - 8.1 08 [place] HEMATOLOGY Monocytes # 0.6 0.0 - 0.8 08 MH [place] HEMATOLOGY Basophils # 0.1 0.0 - 0.2 08 MH [place] HEMATOLOGY Lymphocytes 2.2 1.0 - 5.5 08/ MH # /2015 [place] HEMATOLOGY Eosinophils 0.1 0.0 - 0.5 08/ MH # /2016 [place] CARDIAC CK-MB INDEX <1.1 0.0 - 2.5 06/04 MH ENZYMES /2016 [place] CARDIAC CK MB <0.5 0.5 - 3.6 / MH ENZYMES /2016 [place] CARDIAC Total CK 47 12 - 191 / MH ENZYMES /2016 [place] CARDIAC Troponin-I <0.02 0.00 - 08/ MH ENZYMES 0.40 /2016 [place] ELECTROLYTE Potassium 3.4 3.5 - 5.1 /12 MH S Lvl /2016 [place] ELECTROLYTE CO2 27 24 - 32 / MH S /2016 [place] ELECTROLYTE Sodium Lvl 142 135 - 145 / MH S /2016 [place] ELECTROLYTE BUN 8 7 - 22 / MH S /2016 [place] ELECTROLYTE Chloride Lvl 109 95 - 109 06/04 MH S /2016 [place] ELECTROLYTE Creatinine 0.56 0.50 - 08 MH S Lvl 1.40 [place] ELECTROLYTE AGAP 9.4 10.0 - 06/04 MH S 20.0 /2016 [place] ELECTROLYTE eGFR 108 / Result MH S /2016 Comment: The [place] eGFR is calculated using the CKD-EPI formula. In most young, healthy individuals the eGFR will be >90 mL/min/1.73m2 . The eGFR declines with age. An eGFR of 60-89 may be normal in some populations, particularly the elderly, for whom the CKD-EPI formula has not been extensively validated. Use of the eGFR is not recommended in the following populations:< br/>
Debbie viduals with unstable creatinine concentration s, including patients and those with serious co-morbid conditions.<b r/>
Patie nts with extremes in muscle mass or diet.

The data above are obtained from the National Kidney Disease Education Program (NKDEP) which additionally recommends that when the eGFR is used in patients with extremes of body mass index for purposes of drug dosing, the eGFR should be multiplied by the estimated BMI. ELECTROLYTE Glucose Lvl 97 70 - 99 06/04 MH S /2016 [place] ELECTROLYTE Calcium Lvl 8.9 8.5 - 10.5 06/04 MH S /2016 [place] HEMATOLOGY Eosinophils 0.6 0.0 - 4.0 06/04 MH /2015 [place] HEMATOLOGY Segs-Bands # 5.1 1.5 - 8.1 08/ MH /2015 [place] HEMATOLOGY Basophils 0.6 0.0 - 1.0 08/ MH /2015 [place] HEMATOLOGY Monocytes # 0.5 0.0 - 0.8 08/ MH /2015 [place] HEMATOLOGY Lymphocytes 2.2 1.0 - 5.5 08/12 MH # /2015 [place] HEMATOLOGY Plt Morph Normal / MH (06/03/16 10:43 PM) /2015 [place] HEMATOLOGY Segs 64.4 45.0 - 06/04 MH 75.0 /2015 [place] HEMATOLOGY RBC Morph Normal 06/04 MH (06/03/16 10:43 PM) /2015 [place] HEMATOLOGY Lymphocytes 27.6 20.0 - 06/04 MH 40.0 [place] HEMATOLOGY Monocytes 6.8 2.0 - 12.0 06/04 MH /2015 [place] HEMATOLOGY aPTT 47.8 22.9 - 08 MH 35.8 /2015 [place] HEMATOLOGY INR 1.12 0.85 - 06/04 MH 1.17 [place] HEMATOLOGY PROTIME 14.7 12.0 - 08 MH 14.7 /2015 [place] HEMATOLOGY RDW 12.3 11.5 - 08 MH 14.5 /2015 [place] HEMATOLOGY Platelet 346 133 - 450 06/04 MH /2015 [place] HEMATOLOGY MPV 8.2 7.4 - 10.4 06/04 /2015 [place] HEMATOLOGY Hgb 12.7 12.0 - 08 MH 16.0 [place] HEMATOLOGY Hct 38.2 36.0 - 06/04 MH 48.0 [place] HEMATOLOGY RBC X 10x6 3.99 4.20 - 08 MH 5.40 [place] HEMATOLOGY MCHC 33.2 32.0 - 08 MH 36.0 [place] HEMATOLOGY MCV 95.7 80.0 - 08 MH 98.0 [place] HEMATOLOGY MCH 31.8 27.0 - 08 MH 31.0 [place] HEMATOLOGY WBC X 10x3 7.9 3.7 - 10.4 08 MH /2015 [place] CARDIAC Troponin-I <0.02 0.00 - 08 MH ENZYMES 0.40 [place] CARDIAC CK MB <0.5 0.5 - 3.6 08/ MH ENZYMES /2016 [place] CARDIAC Total CK 49 12 - 191 08/ MH ENZYMES /2016 [place] CARDIAC CK-MB INDEX <1.0 0.0 - 2.5 / MH ENZYMES /2016 [place] CHEM PANEL eGFR 105 / Result /2015 Comment: The [place] eGFR is calculated using the CKD-EPI formula. In most young, healthy individuals the eGFR will be >90 mL/min/1.73m2 . The eGFR declines with age. An eGFR of 60-89 may be normal in some populations, particularly the elderly, for whom the CKD-EPI formula has not been extensively validated. Use of the eGFR is not recommended in the following populations:< br/>
Debbie viduals with unstable creatinine concentration s, including patients and those with serious co-morbid conditions.<b r/>
Patie nts with extremes in muscle mass or diet.

The data above are obtained from the National Kidney Disease Education Program (NKDEP) which additionally recommends that when the eGFR is used in patients with extremes of body mass index for purposes of drug dosing, the eGFR should be multiplied by the estimated BMI. CHEM PANEL B/C Ratio 15 6 - 25 08/ MH /2016 [place] CHEM PANEL Globulin 4.8 2.7 - 4.2 / MH /2015 [place] CHEM PANEL ASPARTATE 28 0 - 37 / MH [place] CHEM PANEL AGAP 9.3 10.0 - 08/ MH 20.0 /2016 [place] CHEM PANEL A/G Ratio 0.7 0.7 - 1.6 06/04 [place] CHEM PANEL Chloride Lvl 109 95 - 109 06/04 MH [place] CHEM PANEL CO2 26 24 - 32 / MH /2015 [place] CHEM PANEL Creatinine 0.61 0.50 - 08/12 MH Lvl 1.40 /2016 [place] CHEM PANEL Sodium Lvl 141 135 - 145 / MH /2015 [place] CHEM PANEL Potassium 3.3 3.5 - 5.1 / MH Lvl /2016 [place] CHEM PANEL Total 8.2 6.4 - 8.4 / MH [place] CHEM PANEL Bili Total 0.3 0.2 - 1.3 / [place] CHEM PANEL Calcium Lvl 8.9 8.5 - 10.5 / [place] CHEM PANEL BUN 9 7 - 22 08/ /2015 [place] CHEM PANEL ALANINE 37 0 - 65 08/ MH AMINOTRANSFE /2015 [place] RASE CHEM PANEL Albumin Lvl 3.4 3.5 - 5.0 08/ /2015 [place] CHEM PANEL Alk Phos 116 39 - 136 08/ MH /2015 [place] CHEM PANEL Glucose Lvl 129 70 - 99 08/ [place] HEMATOLOGY aPTT 37.9 22.9 - 08/ MH 35.8 /2015 [place] HEMATOLOGY MPV 8.5 7.4 - 10.4 08/ /2015 [place] HEMATOLOGY Platelet 353 133 - 450 08/ [place] HEMATOLOGY RDW 12.3 11.5 - 08 MH 14.5 [place] HEMATOLOGY MCHC 33.0 32.0 - 08 MH 36.0 [place] HEMATOLOGY Hgb 12.5 12.0 - 08 MH 16.0 [place] HEMATOLOGY WBC X 10x3 7.3 3.7 - 10.4 08/ /2015 [place] HEMATOLOGY RBC X 10x6 3.98 4.20 - 08 MH 5.40 /2015 [place] HEMATOLOGY Hct 38.0 36.0 - 08 MH 48.0 [place] HEMATOLOGY MCV 95.4 80.0 - 08 MH 98.0 [place] HEMATOLOGY MCH 31.5 27.0 - 08 MH 31.0 [place] HEMATOLOGY PROTIME 13.9 12.0 - 08 MH 14.7 [place] HEMATOLOGY INR 1.04 0.85 - 08 MH 1.17 [place] HEMATOLOGY Segs-Bands # 4.5 1.5 - 8.1 08/ /2015 [place] HEMATOLOGY Monocytes 7.1 2.0 - 12.0 / [place] HEMATOLOGY Basophils 0.6 0.0 - 1.0 / [place] HEMATOLOGY Eosinophils 0.7 0.0 - 4.0 / [place] HEMATOLOGY Lymphocytes 2.2 1.0 - 5.5 08/12 MH /2015 [place] HEMATOLOGY Monocytes # 0.5 0.0 - 0.8 08/ [place] HEMATOLOGY Segs 61.8 45.0 - 08/ MH 75.0 /2015 [place] HEMATOLOGY Lymphocytes 29.8 20.0 - 06/04 40.0 [place] URINE AND UA WBC 0-2 /HPF None Seen 06/04 STOOL /HPF /2015 [place] URINE AND UA Sq Epi Occasional Few /LPF 06/04 [place]OOL /LPF /2015 [place] URINE AND UA Bacteria Occasional None Seen 06/04 [place] /HPF /HPF [place] URINE AND UA Ketones Negative Negative 06/04 [place] mg/dL mg/dL [place] URINE AND UA Glucose Negative Negative 06/04 [place] mg/dL mg/dL [place] URINE AND UA Leuk Est Negative Negative 06/04 [place] (06/03/16 7:19 PM) /2015 [place] URINE AND UA Nitrite Negative Negative 06/04 [place] (06/03/16 7:19 PM) [place] URINE AND UA Bili Negative Negative 06/04 [place] *NA* /2015 [place] (06/03/16 7:19 PM) URINE AND UA Color Yellow Yellow 06/04 [place] *NA* /2015 [place] (06/03/16 7:19 PM) URINE AND UA Protein Negative Negative 06/04 [place] mg/dL mg/dL [place] URINE AND UA Blood Negative Negative 06/04 [place] (06/03/16 7:19 PM) [place] URINE AND UA 2.0 0.1 - 1.0 06/04 [place] Urobilinogen /2015 [place] URINE AND UA pH 7.5 5.0 - 8.0 06/04 STOOL [place] URINE AND UA Turbidity Clear Clear 06/04 [place] (06/03/16 7:19 PM) [place] URINE AND UA Spec Grav 1.010 <=1.030 06/04 STOOL /2015 [place] Pathology Reports No Data Provided for This Section Diagnostic Reports Report Value Date Source Brain wo contrast MRI Patient Name: JULIAN SCHERER 06/04/2016 [facility] : 1965; Age: 50 years y/o Female MR: [id number] Study: Brain wo contrast MRI 06/03/2016 11:33 PM CDT Ordering Physician: Kemal White MD Clinical Indication: Confusion; migraine. Slurre d speech. Comparison: CT head dated 06/03/2016 TECHNIQUE: Multiplanar MRI o f the brain is performed on a 1.5 Natalie magnet. Contrast: None. FINDINGS: BRAIN PARENCHYMA: No abnorm al signal identified on diffusion-weighted imaging to suggest an acute infarction. No abnormal areas of signal intensity identified about the brain. No extra-axial fluid collection, mass effect or shift. CEREBELLOPONTINE REGIONS AND SKULL BASE: Craniocervical junction and skull base are unremarkable. Partial empty sella. Cerebellar pontine angles unremarkable bilaterally. VENTRICLES: The ventricles a nd sulci are within normal limits for the patient's age. VESSELS: Normal flow voids i dentified in the major vessels at the base of the brain. ORBITS, VISUALIZED PARANASAL SINUSES AND MASTOIDS: The visualized orbits and paranasal sinuses are unremarkable. The mastoid air cells are clear. IMPRESSION: 1. Partial empty sella. 2. Otherwise unremarkable brain MRI without cont rast. SL: [facility] Brain/Neck CTA Study: Brain/Neck CTA 06/03/2016 8:15 PM CDT 05/24 [facility] Patient Name: JULIAN SCHERER MR: [id number] : 1965; Age: 50 years y/o Female Ordering Physician: Merry Blackwood DO Clinical Indication: Altered mental status. Slurred speech. Generalized weakness and fatigue. Comparison: CT brain without contrast 06/03/2016 . TECHNIQUE: Sequential trans- axial images of the head and neck were obtained with a multi-detector helical CT after iodinated contrast administration. Additionally, two-dimensional and three-dimensional reformatted images were prepared. CONTRAST: 75 mL Omnipaque 350 IV. CTA NECK VASCULAR EVALUATION: Aortic arch and great vessel origins: No significant atherosclerosis, narrowing, aneurysm, or dissection. Brachiocephalic trunk: No si gnificant atherosclerosis, narrowing, aneurysm, or dissection. Subclavian arteries: No sign ificant narrowing in the visualized portions after accounting for mild artifact. Right carotid artery: Mildly tortuous common carotid artery without significant stenosis. Small calcified or noncalcified plaque at the right internal carotid artery origin causing 20% stenosis at maxim um. The cervical portion of the right internal carotid artery is otherwise tortuous without focal narrowing. Left carotid artery: The lef t common carotid artery and cervical portion of the left internal carotid artery are both tortuous without significant atherosclerosis or narrowing. Vertebral arteries: No significant atheroscleros is, narrowing, or dissection. Any reported ICA stenosis di rectly references the distal internal carotid diameter as the denominator for stenosis measurement. NON-VASCULAR STRUCTURES: Lymphadenopathy: Scattered s ubcentimeter bilateral cervical lymph nodes without lymphadenopathy. Mildly heterogeneous thyroid. Airway: Clear. Visualized lung apices: Clear. Osseous structures: No fract ure, dislocation, or suspicious focal osseous lesion. CTA HEAD ANTERIOR CIRCULATION: Internal carotid arteries: No focal stenosis or aneurysm. Middle cerebral arteries: No focal stenosis or aneurysm in the M1 and M2 segments. The peripheral MCA branches appear normal. Anterior cerebral arteries: No focal stenosis or aneurysm. Normal anterior communicating artery. POSTERIOR CIRCULATION: Vertebrobasilar system: No focal stenosis or ane urysm. Posterior cerebral arteries: No focal stenosis o r aneurysm. Superior cerebellar arteries: Normal in appearan ce. AICA: Normal in appearance. PICA: Normal in appearance. BRAIN PARENCHYMA: The brain volume and ventricle size are appropriate for age. No evidence of acute intracranial hemorrhage, mass lesion, mass effect, midline shift, or extra-axial fluid collection. VENTRICLES: The lateral vent ricles, third and fourth ventricles, and basilar cisterns are normal. PARANASAL SINUSES AND MASTOI DS: The visualized portions of the paranasal sinuses and mastoids are clear. ORBITS AND SOFT TISSUES:The visualized portions of the orbits are normal. SKULL: No acute fracture or suspicious osseous l esion. IMPRESSION: Essentially negative CT job ography of the head and neck. Mild atherosclerosis producing 20% narrowing at maximum is seen at the right internal carotid artery origin. Report SL: TPAINTER-PC Brain wo contrast CT Study: Brain wo contrast CT 06/03/2016 6 :21 PM CDT 06/03/2016 [facility] Patient Name: JULIAN SCHERER MR: [id number] : 1965; Age: 50 years y/o Female Ordering Physician: Devi Sears Clinical Indication: Acute g eneralized weakness. Migraine headache for 11 days. Slurred speech. Comparison: None TECHNIQUE: CT images were ob tained from the foramen magnum to the vertex without the use of intravenous contrast on a multidetector CT. Coronal and sagittal reformatted images were prepared. FINDINGS: BRAIN PARENCHYMA: The brain volume and ventric le size are appropriate for age. No evidence of acute intracranial hemorrhage, mass lesion, mass effect, midline shift, or extra-axial fluid collection. Incidental empty sella. VENTRICLES: The lateral vent ricles, third and fourth ventricles, and basilar cisterns are normal. PARANASAL SINUSES AND MASTOI DS: The visualized portions of the paranasal sinuses and mastoids are clear. ORBITS AND SOFT TISSUES:The visualized portions of the orbits are normal. SKULL: No acute fracture or suspicious osseous l esion. IMPRESSION: 1. Normal brain without acute intracranial abno rmality. SL: TPAINTER-PC Chest 1view DX Patient Name: JULIAN SCHERER 06/03/2016 M k[facility] [place] : 1965; Age: 50 years Female MR: [id number] Study: Chest 1view DX Order Time: 06/03/2016 6:2 1 PM CDT Clinical Indication: CVA. COMPARISON: None FINDINGS: Views: 1 LUNGS: There is normal lung volume. Nodular density versus summation shadow in the right upper lung zone measuring 5 mm. Retrocardiac atelectasis. There are no pleural effusions. There is no pneumothorax. The pulmonary vasculature is normal. MEDIASTINUM: The cardiac silhouette is normal. T he trachea is midline. BONES: There are no clinically significant osse ous abnormalities noted. IMPRESSION: 1. No acute pulmonary disease. Nodular density versus summa tion shadow in the right upper lung zone. Recommend a 4-6 week follow-up chest x-ray to document resolution. SL: [id number] Brain wo contrast CT EXAM: CT BRAIN WITHOUT CONTRAST 05/29/2016 [facility] DATE: 05/29/2016 3:16 PM CDT Cente r INDICATION: Headache with Dizziness and Giddines s COMPARISON: None TECHNIQUE: Routine axial binh ges of the brain were obtained using a conventional ct scanner. No reformats. IV contrast: None. DOSE: Total DLP 1077 mGy*cm FINDINGS: Non-contrast images of the h ead demonstrate no edema, hemorrhage, mass lesion or other acute intracranial abnormality. The brain has normal attenua tion and gordon-white matter distinction. The ventricles are normal. The basal cisterns and sulci are normal in size. There is no chronic abnormality. The paranasal sinuses, orbit s and mastoids are unremarkable. The sella turcica is CSF filled and expanded (partially empty sella). Incidental imaging of the skull and skull base is otherwise unremarkable. IMPRESSION: Normal CT of th e brain without contrast. Partially empty sella, a generally asymptomatic finding. Resident PRELIMINARY REPORT: Creator: Flaco Tapia Steven e: May 29, 2016 15:24:19 Subject: No acute intracranial abnormality. Consultation Notes No Data Provided for This Section Discharge Summaries No Data Provided for This Section History and Physicals No Data Provided for This Section Vital Signs Vital Sign Value Date Comments Source Heart Rate 76 06/04/2016 [facility] Temperature Oral (F) 97.9 F 06/04/2016 [place] Systolic (mm Hg) 149 06/04/2016 [place] Diastolic (mm Hg) 87 06/04/2016 [place] Respitory Rate 18 06/04/2016 [facility] Systolic (mm Hg) 144 06/04/2016 [facility] Diastolic (mm Hg) 95 06/04/2016 [facility] d Temperature Oral (F) 97.7 F 06/04/2016 [facility] Heart Rate 78 06/04/2016 [place] Respitory Rate 18 06/04/2016 [facility] Temperature Oral (F) 98.1 F 06/04/2016 [place] Systolic (mm Hg) 135 06/04/2016 [place] Diastolic (mm Hg) 89 06/04/2016 [place] Respitory Rate 18 06/04/2016 [facility] Heart Rate 69 06/04/2016 [facility] Height 152.4 cm 06/04/2016 [facility] Weight 71.903 06/04/2016 [facility] BMI Calculated 30.96 06/04/2016 [facility] Weight 71.364 06/03/2016 [facility] BMI Calculated 30.73 06/03/2016 [facility] Height 152.4 cm 06/03/2016 [place] Respitory Rate 18 05/29/2016 [facility] Temperature Oral (F) 99.8 F 05/29/2016 [facility] Systolic (mm Hg) 127 05/29/2016 [facility] Diastolic (mm Hg) 67 05/29/2016 [facility] Heart Rate 96 05/29/2016 [facility] Temperature Oral (F) 100.9 F 05/29/2016 [facility] Heart Rate 91 05/29/2016 [facility] Respitory Rate 18 05/29/2016 [facility] Systolic (mm Hg) 149 05/29/2016 [facility] Diastolic (mm Hg) 61 05/29/2016 [facility] Systolic (mm Hg) 149 05/29/2016 [facility] Diastolic (mm Hg) 79 05/29/2016 [facility] Temperature Oral (F) 99.5 F 05/29/2016 [facility] Heart Rate 98 05/29/2016 [facility] Respitory Rate 22 05/29/2016 [facility] BMI Calculated 30.73 05/29/2016 [facility] Height 152.4 cm 05/29/2016 [facility] Weight 71.364 05/29/2016 [facility] Encounters Location Location Encounter Encounter Reason Attending ADM DC Stat us Source Details Type Number For Provider Date Date Visit [facility] [place] [id number] Bill 05/29 05/30 [facility] Emergency [place] /2015 [facility] In[facility] [id number] Ayyash 06/03 06/04 [facility] [place] /2015 [facility] Procedures Procedure Code Date Perfomer Comments Source Gallbladder [id number] [facility] operation Hysterotomy [id number] [facility] Assessment and Plan Assessment and Plan Date Source Extracted from:Title: Teleneurology Consultation 06/04/2016 [facility] Author: Halina Poe MD Date: 06/04/16 TELEMEDICINE NEUROLOGY - CONSULTATION Date of Consult: 06/04/16 CC: slurred speech and severe headache HISTORY OF PRESENT ILLNESS: 50 year old with HTN, DM, HL, lupus (has a manager of selection and assessment) and fibromyalgia who was admitted yesterday with 11 days of severe headache and 3 days of slurred speech. Headache is a pressure pain that turned into throbbing pain, bifrontal, +photophobia, +phonophobia (uses earplugs), +nausea and has trouble taking down food. Only takes pain medications when she has headache not inbetween. No neck pain. This headache: tramadol did not help at all, also at home tried Tylenol #3, ibuprofen 800mg. Neurologist had prescribed something at night but she cannot remember the name of it. ?Quetiapine History of headaches similar, last occur red 1 months ago, occur monthly, but usually are shorter. Never had slurred speech with headaches in the past. Headache has completely resolved as of y and she did not require a migraine headache "cocktail" that was recommended. The patient DENIES having had any curren t nausea, vomiting, diplopia or vertigo. Pt also DENIES having neither any ataxia, weakness at arms or legs nor any change in sensation; describes having NO facial deficits. PAST MEDICAL HISTORY: as above PAST SURGICAL HISTORY: cholecystectomy, hysterectomy FAMILY MEDICAL HISTORY: No history of estuardo pus or other known autoimmune disorder, sisters have migraine headaches, stroke in grandparents SOCIAL HISTORY: No illicit drugs tobacco or heavy alcohol. MEDS (HOME): losartan, levothyroxine, tr amadol prn, insulin but not taking now because low blood sugar ALLERGIES: NKDA PHYSICAL EXAM: Vitals and Temp: Vitals Tmp(F) Pulse BP RR SpO2 FIO2 06/04 07:33 98.1 69 135/89 18 98 --- 06/04 04:18 97.9 73 125/79 18 98 --- 06/04 00:38 98 75 161/83 18 98 --- 06/03 22:20 98.1 79 151/90 18 100 --- 06/03 21:40 98.1 81 162/80 18 98 --- 24 Hr Tmax: 98.1F (36.72c) at 06/04 07:3 3 Vital Signs are the last 5 in the past 48 hours. AAO x3, knows president, able to state d ays of week backwards, speech is fluent, able to repeat, follows complex commands and name, no neglect, bradyphrenia EOMI, VFFTC, Face symmetric, sensation intact, no dysarthria , tongue midline Motor - RUE 5/5 RLE 5/5 LUE 5/5 LLE 5/5 Sensation- intact to light touch throughout Coordination: Normal FTN and HTS, no ataxia noted NIH Stroke Scale (NIHSS) 0 1a. Level of Consciousness; 0-alert 1-drowsy 2-stupor 0 1b. LOC Questions month and age; 0-both 1-one 2-neithe r 0 1c. LOC Commands open/close eyes, drip box tender /release non-paretic hand; 0-both 1-one 2-neither 0 2. Best Gaze; 0-nl 1-partial 2-forced gaze 0 3. Visual [place]; 0-No visual loss. 1-Partial hemianop ia 2-Complete 3-Bilateral 0 4. Facial Palsy; 0-none 1-minor 2-partial 3-complete 0 5. Motor - R arm; 0-No drift 1-Drift 2 -Some antigravity 3-No antigravity 4- No movement 0 6. Motor - R leg; 0-No drift 1-Drift 2 -Some antigravity 3-No antigravity 4- No movement 0 7. Motor - L arm; 0-No drift 1-Drift 2 -Some antigravity 3-No antigravity 4- No movement 0 8. Motor - L leg; 0-No drift 1-Drift 2 -Some antigravity 3-No antigravity 4- No movement 0 9. Limb Ataxia; 0 absent 1 - 1limb 2 - 2 limbs 0 10. Sensory; 0-nl 1-partial loss 2-dense loss 0 11. Best Language; 0-nl 1-mild/mod 2-severe 3-mute 0 12. Dysarthria; 0-nl 1-mild/mod 2-severe x-untest able 0 13. Extinction and Inattention (formerly Neglect); 0-none 1-partial 2-complete TOTAL SCORE 0 Pre-morbid mRS 0 LABS: elevated PTT on one read DIAGNOSTIC TESTS: CT Head: no acute findings (partial empty sella is incidenta l) MRI: no acute stroke, no hemorrhage, FLA IR is normal no chronic white matter disease. partially empty sella CTA Head and Neck: No stenosis or occlus ion. Diffuse atherosclerosis but non flow limiting. ASSESSMENT: 50 year old with severe headache over 11 days overlapping over a couple of days with slurred speech, today continues with slurred speech although headache has resolved. MRI has ruled out stroke at this time. Her slurred speech does not appear severe however I would recommend a formal speech evaluation since the patient reports difficulty swallowing at times. Unclear etiology of slurred speech, could b e atypical in association with resolved headache. Otherwise will need to follow up with neurologist for further evaluation. PLAN: -Speech therapy for swallow evaluation, to make certain patient can swallow liquids and solids without difficulty. If this is clear then the patient can be discharged from a neurologic standpoint. -Would continue aspirin 81mg PO daily on discharge, can follow up with PCP and neurologist to evaluate if this should be continued alf. -Would prescribe Medrol dose pack in oralia e headache returns before patient follows up with neurologist. Patient has also been advised to take magnesium over the counter daily to prevent headache and encouraged PO fluid intake, rest when needed. 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 At this point however there is no change in management. -Neurology follow up. Patient understand s the importance of neurology follow up for chronic migraine headache management. She was provided the phone number for [facility] ([phone]) if she would like to follow up there , otherwise she states she can make an appointment with her neurologist in the next 1-2 weeks. -Follow up with PCP for TSH/T4 check (me ntioned cold intolerance and sweating on occassion) and vascualr risk factor management. Also will need lipid panel and hemoglobin A1c checked -SBP goals <160 (normotensive) with PCP follow up. Discussed above with patient and primary nurse. Will continue to follow along please feel free to call with any interim questions. Halina Poe MD Manager [facility], Neurology Call center [phone] Addendum by Halina Poe MD on 06/04/2016 11:18 No further recommendations from neurolog y aside from formal swallow eval and outpatient follow up as described in plan below. Please call if any additional questions. Plan of Care No Data Provided for This Section Social History Social History Date Source Social History TypeResponse 06/04/2016 [facility] Smoking Status Never smoker; Ready to change: No; Shwetha rns about tobacco use in household: No; Exposure to Tobacco Smoke None; Cigarette Smoking Last 365 Days No; Reg Smoking Cessation Counseling No Social History TypeResponse 05/29/2016 [facility] Smoking Status Never smoker; Ready to change: No; Shwetha rns about tobacco use in household: No; Exposure to Tobacco Smoke None; Cigarette Smoking Last 365 Days No; Reg Smoking Cessation Counseling No Family History No Data Provided for This Section Advance Directives No Data Provided for This Section Functional Status No Data Provided for This Section
--- OUTSIDE RECORDS SUMMARY | 2020-04-07 20:14 | XMS REPORT | Continuity of Care Document ---
:[address] [facility] t Address [address] [place] [address] Care Team Providers Name Role Phone Deborah BLAKE, Missy Matson Attending Clinician [phone] Doctor Unassigned, Name Attending Clinician Unavailable Zeus BLAKE Attending Clinician Hillary White Attending Clinician Melo Cerna Attending Clinician Hillary White Admitting Clinician Problems Condition Condition Condition Status Onset Resolution Last Treating Co mments Source Name Details Category Date Date Treatment Clinician Date STROKE Diagnosis Active 2016-06-03 Mem oria SYMPTOMS - 18:44:00 l STROKE 00:00: [place] SYMPTOMS 00 Active 06/03/2016 [facility] CVA Diagnosis Active 2016-06-08 Mem oria 06-03 09:35:00 l CVA 00:00: [place] 00 Active 06/03/2016 [facility] MIRGRAINE Diagnosis Active 2016-05-29 Memoria 05-29 15:03:00 l 00:00: [place] MIRGRAINE 00 Active 05/29/2016 [facility] Diabetes Problem Resolve 2016-06-07 [place] mellitus d 03:01:56 l (disorder) Diabetes He rmann mellitus (disorder) Resolved Problem 06/07/2016 [place] Hypertensi Problem Resolve 2016-06-07 Memoria ve d 03:01:56 l disorder, [place] systemic Hypertensi arterial ve (disorder) disorder, systemic arterial (disorder) Resolved Problem 06/07/2016 [facility] Hyperlipid Problem Resolve 2016-06-07 Memoria emia d 03:01:56 l (disorder) Farzad n Hyperlipid emia (disorder) Resolved Problem 06/07/2016 [facility] Hypothyroi Problem Resolve 2016-06-07 Memoria dism d 03:01:56 l (disorder) Farzad n Hypothyroi dism (disorder) Resolved Problem 06/07/2016 [facility] Migraine Problem Active 2016-06-07 Mem oria without 03:01:56 l aura Migraine Farzad n (disorder) without aura (disorder) Active Problem 06/07/2016 [facility] CEREBRAL Diagnosis Active 2016-06-08 M emoria INFARCTION 09:35:00 l , CEREBRAL Farzad n UNSPECIFIE INFARCTION D , UNSPECIFIE D Active [facility] Discharge Problem 2016-06-01 2016-06-01 Memoria Diagnosis: 8- 01:52:24 01:52:24 l Common 05:00: [place] migraine Discharge 00 Diagnosis: Common migraine 6 06/01/2016 [facility] Allergies, Adverse Reactions, Alerts This patient has no known allergies or adverse reactions. Social History Smoking Status Start Date Stop Date Source Social History [facility] Medications Ordered Filled Start Stop Current Ordering Indication Dosage Frequency Signature Comments Components Source Medication Medication Date Date Medication? Clinician (SIG) Name Name Pneumovax No Notes: Memori a 23 06-04 (Same as: l 20:44: Pneumovax Dean 00 23) Refrigerat e {21 Yes See Memoria (Methylpred 06-04 Instructio l nisolone 4 20:31: ns, PO, Herm maximilian MG Oral 00 Take by Tablet mouth as [Medrol]) } directed Pack on label., [Medrol X 6 day, # Dosepak] 1 Pack, 0 Refill(s) Aspirin 325 Yes 325 mg = 1 Memoria MG Oral 12 tab, PO, l Tablet 20:31: Daily, # [place] 00 30 tab, 0 Refill(s) Pneumovax No Notes: Memori a 23 12 (Same as: l 15:00: Pneumovax Dean 00 23) Refrigerat e pneumococca No Notes: Schuyler yonis l capsular 8-12 (Same as: l polysacchar 14:00: Pneumovax H ermann octavio type 1 00 23) vaccine / Refrigerat pneumococca e l capsular polysacchar octavio type 10A vaccine / pneumococca l capsular polysacchar octavio type 11A vaccine / pneumococca l capsular polysacchar octavio type 12F vaccine / pneumococca l capsular polysacchar Aspirin No Notes: Memoria 8-12 Take with l 14:00: food. potassium No Notes: Memori a chloride 8-12 (Same as: l 04:49: K-Dur 20) [place] 00 "Do Not Crush" With food and full glass of water losartan 25 Yes 25 mg = 1 M emoria mg oral 12 tab, PO, l tablet 03:55: Daily, 0 [place] 00 Refill(s) levothyroxi Yes 125 Memori a ne 125 mcg 812 microgram l (0.125 mg) 03:55: = 1 cap, Her cantrell oral 00 PO, Daily, capsule # 30 cap, 3 Refill(s) Saline No Notes: Memoria Flush 0.9% -12 (Same as: l 01:28: BD Posiflush) Saline No Notes: Memoria Flush 0.9% 8-11 (Same as: l 23:21: BD Posiflush) tramadol Yes 50 mg = 1 Schuyler yonis hydrochlori 05-29 tab, PO, l de 50 MG 23:47: Q4H, PRN Mary nn Oral Tablet 00 Pain, X 10 day, # 60 tab, 0 Refill(s) Isolyte S No Notes: Memori a PH-7.4 05-29 (Same as: l (Bolus) IV 21:42: Isolyte S rmann 00 PH 7.4) tramadol Yes Notes: Not Mem oria hydrochlori 05-29 to exceed l de 50 MG 21:41: 400mg/day. Her cantrell Oral Tablet 00 (Same As: Ultram) Reglan No Notes: Memoria 05-29 (Same as: l 19:47: Reglan) Dean Ketorolac No 4 days Memor ia 8-06 l 19:47: MEDICATION Dean 00 WASTE Product Size: 30 mg Product Wasted: ___ mg Diphenhydra No Notes: Schuyler yonis mine 05-29 (Same as: l 19:45: Benadryl) [place] 00 Sodium No 1,000 mL, Memori a Chloride 05-29 2,000 l 0.154 19:45: ml/hr, Dean MEQ/ML 00 Infuse Injectable Over: 30 Solution minutes, Route: IV, 1,000, Drug form: INJ, ONCE, Priority: STAT, Dosing Weight 71.364 kg, Start date: 05/29/16 14:45:00 CDT, Duration: 1 doses or times, Stop date: 05/29/16 14:45:00 CDT Vital Signs Vital Name Observation Time Observation Value Comments Source Heart Rate 2016-06-04 21:08:00 [facility] Temperature Oral (F) 2016-06-04 21:08:00 97.9 F [facility] [place] Systolic (mm Hg) 2016-06-04 21:08:00 Schuyler rial [place] Diastolic (mm Hg) 2016-06-04 21:08:00 Mem orial [place] Respitory Rate 2016-06-04 21:08:00 [facility]ori al [place] Systolic (mm Hg) 2016-06-04 16:48:00 Schuyler rial [place] Diastolic (mm Hg) 2016-06-04 16:48:00 Mem orial [place] Temperature Oral (F) 2016-06-04 16:48:00 97.7 F [facility] [place] Heart Rate 2016-06-04 16:48:00 [facility] Respitory Rate 2016-06-04 16:48:00 [facility] [place] Temperature Oral (F) 2016-06-04 12:33:00 98.1 F [facility] [place] Systolic (mm Hg) 2016-06-04 12:33:00 Schuyler rial [place] Diastolic (mm Hg) 2016-06-04 12:33:00 Mem orial [place] Respitory Rate 2016-06-04 12:33:00 Memori al [place] Heart Rate 2016-06-04 12:33:00 [facility] Height 2016-06-04 03:42:00 152.4 cm [facility] Weight 2016-06-04 03:42:00 [facility] BMI Calculated 2016-06-04 03:42:00 [facility] al [place] Weight 2016-06-03 23:16:00 [facility] [place] BMI Calculated 2016-06-03 23:16:00 [facility] [place] Height 2016-06-03 23:16:00 152.4 cm [facility] [place] Respitory Rate 2016-05-29 23:47:00 Memori al [place] Temperature Oral (F) 2016-05-29 23:47:00 99.8 F [facility] [place] Systolic (mm Hg) 2016-05-29 23:47:00 Schuyler rial [place] Diastolic (mm Hg) 2016-05-29 23:47:00 Mem orial [place] Heart Rate 2016-05-29 23:47:00 [facility] Temperature Oral (F) 2016-05-29 21:03:00 100.9 F [facility] Heart Rate 2016-05-29 21:03:00 [facility] Respitory Rate 2016-05-29 21:03:00 [facility] al [place] Systolic (mm Hg) 2016-05-29 21:03:00 Schuyler rial [place] Diastolic (mm Hg) 2016-05-29 21:03:00 Mem orial [place] Systolic (mm Hg) 2016-05-29 19:01:00 Schuyler rial [place] Diastolic (mm Hg) 2016-05-29 19:01:00 Mem orial [facility] Temperature Oral (F) 2016-05-29 19:01:00 99.5 F [facility] [place] Heart Rate 2016-05-29 19:01:00 [facility] Respitory Rate 2016-05-29 19:01:00 Memori al [place] BMI Calculated 2016-05-29 19:01:00 [facility] al [place] Height 2016-05-29 19:01:00 152.4 cm [facility] [place] Weight 2016-05-29 19:01:00 [facility] [place] Procedures Procedure Date / Time Performed Performing Clinician [facility] e Gallbladder operation [facility] H ermann Hysterotomy [facility] [place] Encounters Start End Encounter Admission Attending Care Care Encounter Source Date/Time Date/Time Type Type Clinicians Facility Department ID 2020-02-17 2020-02-17 TATE Krause [id number] 00:00:00 00:00:00 Missy Saenz [id number] [place] [id number] Professio [id number] [facility] 231 [facility] 2020-01-16 2020-01-16 Orders Doctor JUSTIN [id number] 00:00:00 00:00:00 Only Unassigned, RENA [id number] [facility] [id number] [id number] [id number] 2019-12-29 2019-12-29 Orders Doctor JUSTIN [id number] 00:00:00 00:00:00 Only Unassigned, RENA [id number] [facility] [id number] [id number] 2019-12-18 2019-12-18 Telephone [facility] [id number] 00:00:00 00:00:00 Missy Saenz [id number] [place] [id number] Professio [id number] [facility] 231 [facility] 2019-07-04 2019-07-04 Office [facility] [id number] 07:46:06 08:37:47 Visit Keevn Saenz [id number] [place] [id number] Professio [id number] [facility] 044 [facility] 2016-06-03 2016-06-04 Outpatient CARTER White RUST [id number] 18:06:00 18:25:00 Kemal Y 2016-05-29 2016-05-29 Outpatient Nehemiah [facility] [id number] 13:59:00 19:17:00 Bill 00 Luke Results Test Description Test Time Test Comments Results Result Comments Source ELECTROLYTES 2016-06-04 11.6 [facility] 10:10:00 ELECTROLYTES 2016-06-04 17 [facility] [place] 10:10:00 ELECTROLYTES 2016-06-04 0.7 [facility] [place] 10:10:00 ELECTROLYTES 2016-06-04 4.4 [facility] [place] 10:10:00 ELECTROLYTES 2016-06-04 33 [facility] [place] 10:10:00 ELECTROLYTES 2016-06-04 115 [facility] [place] 10:10:00 ELECTROLYTES 2016-06-04 0.3 [facility] [place] 10:10:00 ELECTROLYTES 2016-06-04 8.9 [facility] [place] 10:10:00 ELECTROLYTES 2016-06-04 25 [facility] [place] 10:10:00 ELECTROLYTES 2016-06-04 25 [facility] [place] 10:10:00 ELECTROLYTES 2016-06-04 7.5 [facility] [place] 10:10:00 ELECTROLYTES 2016-06-04 87 [facility] [place] 10:10:00 ELECTROLYTES 2016-06-04 100 [facility] [place] 10:10:00 ELECTROLYTES 2016-06-04 3.1 [facility] [place] 10:10:00 ELECTROLYTES 2016-06-04 110 [facility] [place] 10:10:00 ELECTROLYTES 2016-06-04 3.6 [facility] [place] 10:10:00 ELECTROLYTES 2016-06-04 8 [facility] [place] 10:10:00 ELECTROLYTES 2016-06-04 0.47 [facility] [place] 10:10:00 ELECTROLYTES 2016-06-04 143 [facility] Her [place] 10:10:00 HEMATOLOGY 2016-06-04 12.1 [facility] Mary nn 10:10:00 HEMATOLOGY 2016-06-04 36.2 [facility] Mary nn 10:10:00 HEMATOLOGY 2016-06-04 95.0 [facility] Mary nn 10:10:00 HEMATOLOGY 2016-06-04 7.5 [facility] Mary nn 10:10:00 HEMATOLOGY 2016-06-04 3.81 [facility] Mary nn 10:10:00 HEMATOLOGY 2016-06-04 10:10:00 Test Item Value Reference Range Interpretation Comme nts MCH (test code = MCH) 31.8 pg 27.0-31.0 [facility] ReqgsrnMFQXOASDJI4581-18-51 10:10:0012.5[facility]ann[facility]MATOLOGY 2016-06-04 10:10:008.2[facility] WeltiemIAQGNDSMRP8309-34-31 10:10:0033.5[facility] NjpclzeGNDWGQZRVV6631-41-25 10:10:89904Ugyqaldh NblhviiWPRKHGHEOZ7008-49-66 10:10:0028.9[facility] KbmflbnPATNOEVIYA1168-48-60 10:10:008.2[facility] PFAMKVCGTK7809-74-45 10:10:000.9[facility] UpkjiooWHRBSUANIV1928-82-12 10:10:001.3 Memorial RdxtulwYSVWGTMIGA8139-70-77 10:10:0060.7[facility] HermannHEMATOLOGY 2016-06-04 10:10:004.6[facility] CpxiwzyQKGMKHZIDR1024-57-78 10:10:000.6[facility] XqyenteQCEWPVEOLE7835-96-11 10:10:000.1[facility] MqayoasSAXQQSVKQI6603-30-51 10:10:002.2[facility] GdzhcpmTAKQSUECGS3524-60-81 10:10:000.1[facility] CARDIAC TWUMJEL7626-67-03 03:43:00<1.1[facility] HermannCARDIAC ENZYMES 2016-06-04 03:43:00<0.5[facility] HermannCARDIAC BUQBWFX7059-53-29 03:43:0047 [facility]ann[facility]ARDIAC ORVMPLR5483-14-72 03:43:00<0.02[facility] IHMORXDXMENP3254-64-34 03:43:003.4[facility] WimyozkXBFRKCTIJVXP1044-73-70 03:43:0027[facility] AbecanrATTWMJEAWNSI0171-60-74 03:43:06138Wejkhakg Dean TPQQMTZGPMJU9505-03-80 03:43:008[facility] DoisnbhPEUAIQKZUGJM2996-68-19 03:43:00 109[facility] CwbjdbkYBCLAEBDKIDN6849-77-44 03:43:000.56[facility] FRXLPDMOVIQX5202-02-93 03:43:009.4[facility] GurebipCHGSVEAFSPFC5151-91-16 03:43:97338Qwcsmnvw FzzxattPQIORJLXGSWD5997-87-36 03:43:0097[facility] [place] TYHBUQLZQHVQ2018-54-22 03:43:008.9[facility] ZbypvvlWLXXJRHQOD1447-12-22 03:43:00 0.emorial FruhezuLLQPMIACBO7565-30-06 03:43:005.1[facility] HermannHEMATOLOGY 2016-06-04 03:43:000.6[facility] PeysgzfAHJMPDEIGC6180-69-78 03:43:000.5[facility] HivndcnJWFWRHJKBX3475-03-56 03:43:002.2[facility] QweiavxTIQKWZAEZJ2694-99-81 03:43:00Normal (06/03/16 10:43 PM)[facility] NuthtisBNGGPEDDHF6953-12-74 03:43:00 64.4[facility] XuibtqiFVZWUZPOEN9289-41-42 03:43:00Normal (06/03/16 10:43 PM) Memorial LmjvplrDKUMXDYRDO3942-80-92 03:43:0027.6[facility] HermannHEMATOLOGY 2016-06-04 03:43:006.8[facility] BviffppWRKASXFXLF8613-34-83 03:43:00 Test Item Value Reference Range Interpretation Comments aPTT (test code = aPTT) 47.8 s 22.9-35.8 Memorial GcwcozlQWIRCUPMXV3365-27-62 03:43:001.12[facility] HermannHEMATOLOGY 2016-06-04 03:43:00 Test Item Value Reference Range Interpretation Comments PROTIME (test code = PROTIME) 14.7 s 12.0-14.7 Memorial RjgfitsTHNQMAJBJU0416-56-91 03:43:0012.3[facility] HermannHEMATOLOGY 2016-06-04 03:43:24873Icxpdrcf HfcejnfAXHJDWEMRS9163-51-87 03:43:008.2[facility] YlvojokUYYEWECLDQ4647-01-02 03:43:0012.7[facility] OyvdbmpOUSQPBSKBN7129-03-95 03:43:0038.2[facility] BjmhauaHFDDXFJGKB1987-19-62 03:43:003.99[facility] HCJOXZYFRK3534-24-99 03:43:0033.2[facility] CidpxvoQSIGQQEINY5872-13-66 03:43:00 95.7[facility] JejublbNKJXFIZXIA7351-25-89 03:43:00 Test Item Value Reference Range Interpretation Comments MCH (test code = MCH) 31.8 pg 27.0-31.0 [facility] KnsstwqVBLLQXCVSB1792-10-15 03:43:007.9[facility] HermannCARDIAC ENZYMES 2016-06-04 00:19:00<0.02[facility] HermannCARDIAC VCJQQYG0895-71-23 00:19:00 <0.5[facility] HermannCARDIAC AHOSCIN6087-77-53 00:19:0049[facility] CARDIAC HJPHJVQ8459-74-54 00:19:00<1.0[facility] HermannCHEM SUCQR8180-34-77 00:19:65820Vibmnefc HermannCHEM KIBOX2691-50-32 00:19:0015[facility] HermannCHEM QWMBJ4626-34-37 00:19:004.8[facility] HermannCHEM GHCGT5892-38-39 00:19:0028 [facility] HermannCHEM HETPA4342-55-04 00:19:009.3[facility] HermannCHEM PANEL 2016-06-04 00:19:000.7[facility] HermannCHEM OWQTS9757-98-84 00:19:64321Kaftijgp HermannCHEM ZOMOB6245-09-37 00:19:0026[facility] HermannCHEM DTINZ9532-27-96 00:19:000.61[facility] HermannCHEM QWWYB6162-57-86 00:19:40930Ofcesgex HermannCHEM KYDXI6400-93-45 00:19:003.3[facility] HermannCHEM HBTCD1890-31-55 00:19:008.2 [facility] HermannCHEM QSXTJ3964-91-58 00:19:000.3[facility] HermannCHEM PANEL 2016-06-04 00:19:008.9[facility] HermannCHEM IRKXJ6551-25-52 00:19:009[facility] HermannCHEM XKLLE3460-73-95 00:19:0037[facility] HermannCHEM XLKMH9393-86-09 00:19:003.4[facility] HermannCHEM EJNFX5952-55-74 00:19:42793Xqvwaajn HermannCHEM ACNAM9199-20-78 00:19:65877Dzihkmdi PulamadUNHWGVYVET0413-52-54 00:19:00 Test Item Value Reference Range Interpretation Comments aPTT (test code = aPTT) 37.9 s 22.9-35.8 [facility] WnocvunFZWWTGCZZF1595-70-52 00:19:008.5[facility] HermannHEMATOLOGY 2016-06-04 00:19:07518Zhxlhbrw UlwthmzZHZDAIJNNS2836-65-11 00:19:0012.3[facility] LzgwwjuNORQZYPNWY4675-15-49 00:19:0033.0[facility] OqagmxaTUWYWZLQNY8128-83-21 00:19:0012.5[facility] DpejyhkFKXOPTWNRY7464-19-77 00:19:007.3[facility] IIHIFERGCP8685-69-20 00:19:003.98[facility] XjcyfsjUMLLUHIZZB6497-80-69 00:19:00 38.0[facility] IawagieBEOYEQCPCT7344-20-49 00:19:0095.4[facility] HermannHEMATOLOGY 2016-06-04 00:19:00 Test Item Value Reference Range Interpretation Comments MCH (test code = MCH) 31.5 pg 27.0-31.0 [facility] HtslukhCJTGMZYPTT7659-44-44 00:19:00 Test Item Value Reference Range Interpretation Comments PROTIME (test code = PROTIME) 13.9 s 12.0-14.7 [facility] WnayjnqCZVAJBKUTX8942-66-47 00:19:001.04[facility] HermannHEMATOLOGY 2016-06-04 00:19:004.5[facility] UnydhjvRHPQEGCZZZ5000-42-77 00:19:007.1[facility] QowrcdhDPSWJFSORD1357-39-25 00:19:000.6[facility] EllvxgvOQDYOKUYEX6269-05-90 00:19:000.7[facility] UjwgmfqFWZEGJRNGS9719-38-94 00:19:002.2[facility] [place] IUORFAWYXW1927-28-91 00:19:000.5[facility] WkfmxhpPFHKGBHKLF1210-07-74 00:19:00 61.8[facility] YuicrhvVQRMCITVBT4882-48-48 00:19:0029.8[facility] HermannURINE AND XXOYT0096-07-59 00:19:00Negative (06/03/16 7:19 PM)[facility]ann[facility] AND WMOYQ0081-75-41 00:19:00Negative (06/03/16 7:19 PM)[facility]ann[facility] AND XPVZD6044-63-78 00:19:00Negative *NA*(06/03/16 7:19 PM)[facility]ann[facility] AND IJVUE0340-41-07 00:19:00Yellow *NA*(06/03/16 7:19 PM)[facility] AND JFKVH1574-27-41 00:19:00Negative (06/03/16 7:19 PM)[facility]ann[facility] AND IPGDO5355-60-15 00:19:002.0[facility] HermannURINE AND NZVCB7174-17-59 00:19:00 Test Item Value Reference Range Interpretation Comments UA pH (test code = UA pH) 7.5 1 5.0-8.0 [facility]ann[facility] AND WRSOX9664-80-61 00:19:00Clear (06/03/16 7:19 PM) [facility]ann[facility] AND PFVWE0092-36-59 00:19:00 Test Item Value Reference Range Interpretation Comments UA Spec Grav (test code = UA Spec 1.010 1 Grav) [facility]
--- OUTSIDE RECORDS SUMMARY | 2020-04-07 20:14 | XMS REPORT | Summary of Care ---
:1965 Author Organization [facility] - Health Address [address] [place] [id number] Care Team Providers Name Role Phone Missy Cabrera MD Primary Care Provider [phone] Nela Del Toro Neurologist Encounter Details Date Type Department Care Team Description 01/16/2020 Orders Only [facility] Doctor Unassigned, No [address] [facility] [place] [address] [address] [place] [address] Allergies No Known Allergiesdocumented as of this encounter (statuses as of 01/16/2020) Medications Medication Sig Dispensed Refills Start Date End Date Status blood sugar diagnostic Use as directed 300 Strip 1 02/13/2018 Active (ASCENSIA MICROFILL) TID, DX:E11.9 stripIndications: Uncontrolled type 2 diabetes mellitus with diabetic polyneuropathy, with long-term current use of insulin aspirin 81 mg EC Take 1 tablet by 0 02/14/2018 Active tablet mouth daily. metformin ER 500 mg 24 Take 1 tablet by 270 tablet 3 8 Active hr tabletIndications: mouth 3 (three) Uncontrolled type 2 times daily with diabetes mellitus with meals. diabetic polyneuropathy, with long-term current use of insulin Insulin Blue [place], Use 2 times 180 Each 3 05/24/2018 Active Disposable, (BD daily with ULTRAFINE III MINI insulin pens PEN) 31 gauge x 3/16" NdleIndications: Uncontrolled type 2 diabetes mellitus with diabetic polyneuropathy, with long-term current use of insulin TRULICITY 1.5 mg/0.5 INJECT 1.5MG 6 mL 0 02/16/2019 Active mL PnIjIndications: UNDER THE SKIN Uncontrolled type 2 WEEKLY diabetes mellitus with diabetic polyneuropathy, with long-term current use of insulin spironolactone 25 mg Take 1 tablet by 90 tablet 3 04/30/2019 Active tabletIndications: mouth daily. Essential hypertension Mdjfbeolqz-Uytbbshyv-V Take 1 tablet by 90 tablet 3 04/30/2019 Active CTZ 10-320-25 mg mouth daily. TabIndications: Essential hypertension rosuvastatin 40 mg Take 1 tablet by 90 tablet 3 04/30/2019 Active tabletIndications: mouth daily. Essential hypertension icosapent ethyl Take 2 capsules 120 capsule 5 05/01/2019 Active (VASCEPA) 1 gram by mouth 2 (two) capsuleIndications: times daily. Mixed hyperlipidemia fluticasone propionate Use 1 [place] in 16 g 0 07/04/2019 Active 50 mcg/actuation nasal each nostril sprayIndications: daily. Acute non-recurrent frontal sinusitis, Congestion of nasal sinus SITagliptin (JANUVIA) Take 1 tablet by 30 tablet 3 08/13/2019 Active 25 mg mouth daily. tabletIndications: Type 2 diabetes mellitus with complication, with long-term current use of insulin levothyroxine 137 mcg Take 1 tablet by 90 tablet 3 08/13/2019 Active tabletIndications: mouth every Primary hypothyroidism morning. Insulin Lisp & Lisp Inject 52 units 90 mL 3 08/13/2019 Active Prot, Hum, (HUMALOG before breakfast MIX 75-25 KWIKPEN) 100 and 48 units unit/mL (75-25) before dinner injectionIndications: Type 2 diabetes mellitus with complication, with long-term current use of insulin naproxen 500 mg Take 1 tablet by 60 tablet 3 08/13/2019 Active tabletIndications: mouth 2 (two) Osteoarthritis times daily with involving multiple meals. joints on both sides of body, Chronic pain of both shoulders SERTRALINE 100 mg TAKE 2 TABLETS 180 tablet 3 11/08/2019 Active tabletIndications: BY MOUTH EVERY Mood changes, Other MORNING depression, Insomnia, unspecified type documented as of this encounter (statuses as of 01/16/2020) Active Problems Problem Noted Date Acute non-recurrent frontal sinusitis 07/04/2019 Congestion of nasal sinus 07/04/2019 Cough 07/04/2019 Sinus headache 07/04/2019 Obesity (BMI 30-39.9) 12/06/2018 Osteopenia of lumbar spine 05/24/2018 Arthritis 05/04/2018 Type 2 diabetes mellitus with microalbuminuria, with l yasmany-term current use 10/04/2016 of insulin Dyslipidemia 10/04/2016 Anxiety and depression 07/13/2016 Polyarthralgia 07/13/2016 History of lupus 07/13/2016 Hypothyroidism, unspecified hypothyroidism type 2015 History of fibromyalgia 07/13/2016 Essential hypertension 05/10/2016 Multiple thyroid nodules 05/10/2016 Primary hypothyroidism 05/10/2016 Vitamin D deficiency 05/10/2016 Medically noncompliant 03/31/2015 Insomnia 03/10/2015 Anxiety 01/10/2015 Lupus 01/10/2015 Diabetes mellitus type 2, uncontrolled 12/25/2014 Hyperlipidemia 12/25/2014 Neuropathy 12/25/2014 Depression 12/25/2014 Anger 12/25/2014 Hypothyroid 12/25/2014 documented as of this encounter (statuses as of 01/16/2020) Immunizations Name Administration Dates Next Due Influenza Virus Vaccine 07/02/2019, 08/11/2017 Influenza Virus Vaccine Quad IM 3+ YRS 09/20/2018 Influenza Virus Vaccine Quad IM Multi-dose 6+ MO 08/11/2015 Pneumococcal Polysaccharide, PPSV23 (PNEUMOVAX) 04/30/2019 TDAP (ADACEL) VACCINE 06/26/2019 Zoster Vaccine Recombinant 06/26/2019 documented as of this encounter Social History Tobacco Use Types Packs/Day Years Used Date Never Smoker Smokeless Tobacco: Never Used Alcohol Use Drinks/Week oz/Week Comments No Sex Assigned at Date Recorded Not on file Job Start Date Occupation Industry Not on file Not on file Not on file Travel History Travel Start Travel End No recent travel history available. documented as of this encounter Last Filed Vital Signs Not on filedocumented in this encounter Plan of Treatment Date Type Specialty Care Team Description 04/30/2020 Office Visit Cardiology Chidi Simpson M D [address] [place] [address] 15 Health Maintenance Due Date Last Done Comments FOOT EXAM 05/24/2019 05/24/2018, 05/24/2018, 02/13/2018, Additional history exists Zoster Recombinant Vaccine 08/21/2019 06/26/2019 (SHINGRIX) (2 of 2) HgA1C 10/31/2019 04/30/2019, 05/24/2018, 02/13/2018, Additional history exists EYE EXAM 01/04/2020 01/03/2019, 02/08/2018 (Previously completed), 12/25/2014 (Previously completed) CREATININE (SERUM) 04/30/2020 04/30/2019, 12/06/2018, 10/31/2018, Additional history exists LDL-C 04/30/2020 04/30/2019, 10/31/2018, 05/24/2018, Additional history exists URINE MICROALBUMIN 04/30/2020 04/30/2019, 02/13/2018, 04/20/2017, Additional history exists Breast Cancer Screening 05/02/2020 05/02/2019, 03/30/2018, (MAMMOGRAM) 03/18/2017, Additional history exists DTaP,Tdap,and Td Vaccines (2 - 06/26/2029 06/26/2019 Td) COLONOSCOPY 08/15/2029 08/15/2019, 12/06/2018, 06/21/2013 (Previously completed) PAP SMEAR Discontinued 07/02/2011 (Previously completed) HEPATITIS C (HCV) SCREEN Completed 03/30/2017, 07/13/2016 PNEUMOCOCCAL 0-64 YEARS COMBINED Completed 04/30/2019 SERIES INFLUENZA VACCINE Completed 07/02/2019, 09/20/2018, 08/11/2017, Additional history exists documented as of this encounter Procedures Procedure Name Priority Date/Time Associated Diagnosis Comme nts EXTERNAL PROVIDER Routine 01/16/2020 12:01 AM CDT RECORDS documented in this encounter Results Not on filedocumented in this encounter Insurance Payer Benefit Plan / Subscriber ID Effective Dates Phone Addre ss Type Group MEDICARE MEDICARE PART xxxxxxxxxxx 2006-Presen [phone] Medicare A & B t 2 [id number] [place] [address] [facility] [place] MEDICAID OF xxxxxxxxx 2018-Presen [phone] [address] Medicaid [place] 0 [id number] [facility] [address] documented as of this encounter
--- OUTSIDE RECORDS SUMMARY | 2020-04-07 20:15 | XMS REPORT | Summary of Care ---
:1965 Author Organization [facility] Address [address] [place] [id number] Care Team Providers Name Role Phone Missy Cabrera MD Primary Care Provider [phone] Nela Del Toro Neurologist Reason for Visit Reason Comments Refill Request Encounter Details Date Type Department Care Team Description 02/17/2020 Refill [facility] and Ema Cabrera, Refill Request Adult Primary Care- MD Saenz [address], [address] [place] [address] [place] [address] [phone] Allergies No Known Allergiesdocumented as of this encounter (statuses as of 02/21/2020) Medications Medication Sig Dispensed Refills Start Date End Date Status blood sugar Use as 300 Strip 1 02/13/2018 Active diagnostic directed TID, (ASCENSIA DX:E11.9 MICROFILL) stripIndications: Uncontrolled type 2 diabetes mellitus with diabetic polyneuropathy, with long-term current use of insulin aspirin 81 mg EC Take 1 tablet 0 02/14/2018 Active tablet by mouth daily. metformin ER 500 mg Take 1 tablet 270 tablet 3 05/24/2018 Active 24 hr by mouth 3 tabletIndications: (three) times Uncontrolled type 2 daily with diabetes mellitus meals. with diabetic polyneuropathy, with long-term current use of insulin Insulin [place], Use 2 times 180 Each 3 05/24/2018 Active Disposable, (BD daily with ULTRAFINE III MINI insulin pens PEN) 31 gauge x 01/06" NdleIndications: Uncontrolled type 2 diabetes mellitus with diabetic polyneuropathy, with long-term current use of insulin TRULICITY 1.5 INJECT 1.5MG 6 mL 0 02/16/2019 Ac tive mg/0.5 mL UNDER THE SKIN PnIjIndications: WEEKLY Uncontrolled type 2 diabetes mellitus with diabetic polyneuropathy, with long-term current use of insulin spironolactone 25 Take 1 tablet 90 tablet 3 04/30/2019 Active mg by mouth tabletIndications: daily. Essential hypertension Amlodipine-Valsarta Take 1 tablet 90 tablet 3 04/30/2019 Active n-HCTZ 10-320-25 mg by mouth TabIndications: daily. Essential hypertension rosuvastatin 40 mg Take 1 tablet 90 tablet 3 04/30/2019 Active tabletIndications: by mouth Essential daily. hypertension icosapent ethyl Take 2 120 capsule 5 05/01/2019 A ctive (VASCEPA) 1 gram capsules by capsuleIndications: mouth 2 (two) Mixed times daily. hyperlipidemia fluticasone Use 1 [place] in 16 g 0 07/04/2019 Ac tive propionate 50 each nostril mcg/actuation nasal daily. sprayIndications: Acute non-recurrent frontal sinusitis, Congestion of nasal sinus levothyroxine 137 Take 1 tablet 90 tablet 3 08/13/2019 Active mcg by mouth every tabletIndications: morning. Primary hypothyroidism Insulin [place] [employer] [place] Inject 52 90 mL 3 08/13/2019 Active Prot, Hum, (HUMALOG units before MIX 75-25 KWIKPEN) breakfast and 100 unit/mL (75-25) 48 units injectionIndication before dinner s: Type 2 diabetes mellitus with complication, with long-term current use of insulin naproxen 500 mg Take 1 tablet 60 tablet 3 08/13/2019 Active tabletIndications: by mouth 2 Osteoarthritis (two) times involving multiple daily with joints on both meals. sides of body, Chronic pain of both shoulders SERTRALINE 100 mg TAKE 2 TABLETS 180 tablet 3 11/08/2019 Active tabletIndications: BY MOUTH EVERY Mood changes, Other MORNING depression, Insomnia, unspecified type JANUVIA 25 mg TAKE 1 TABLET 30 tablet 3 02/21/2020 A ctive tabletIndications: BY MOUTH DAILY Type 2 diabetes mellitus with complication, with long-term current use of insulin SITagliptin Take 1 tablet 30 tablet 3 08/13/2019 Dis continued (JANUVIA) 25 mg by mouth 0 tabletIndications: daily. Type 2 diabetes mellitus with complication, with long-term current use of insulin documented as of this encounter (statuses as of 02/21/2020) Active Problems Problem Noted Date Acute non-recurrent [...] as of this encounter (statuses as of 02/21/2020) Immunizations Name Administration Dates Next Due Influenza [...] Office Visit Cardiology Chidi Simpson M D [address] [address] [phone] Health Maintenance Due Date Last Done Comments [...] history exists documented as of this encounter Results Not on filedocumented in this encounter Visit Diagnoses Diagnosis Type 2 diabetes mellitus with complicati on, with long-term current use of insulin documented in this encounter Insurance Payer Benefit Plan / Subscriber ID Effective Dates Phone Addre ss Type Group MEDICARE MEDICARE PART xxxxxxxxxxx 2006-Libby [phone] Medicare A & B t 2 [id number] [place] [id number] [facility] MEDICAID OF xxxxxxxxx 2018-Libby [phone] Medicaid [place] t [id number] [place] [address] documented as of this encounter
[2020-04-07] MEDS ORDERED: AMOX/K CLAV 875 MG TAB ONE (20:25)
[2020-04-07] MEDS ORDERED: HYDROCODONE/APAP 5/325 MG TAB ONE (20:25)
[2020-04-07] MEDS ORDERED: IBUPROFEN 400 MG TAB ONE (20:25)
[2020-04-07 20:59] VITALS: BP 163/77; TEMP 97.2; O2SAT 99
== END 2020-04-07 20:26 | disposition home or self-care (01) ==
LOC: ER 18:09
DX: S40.811A Abrasion of right upper arm, initial encounter (principal); W54.0XXA Bitten by dog, initial encounter; Y93.9 Activity, unspecified; Y92.9 Unspecified place or not applicable; I10 Essential (primary) hypertension; F41.9 Anxiety disorder, unspecified; E11.9 Type 2 diabetes mellitus without complications; Z79.4 Long term (current) use of insulin
CPT/HCPCS: 99283

== ENCOUNTER 2020-08-11 14:33 | Emergency (ER) | payer OTHER ==
--- OUTSIDE RECORDS SUMMARY | 2020-08-11 14:36 | XMS REPORT | Continuity of Care Document ---
:1965 Author Organization [facility] Dean Information [place] Care Team Providers Name Role Phone [facility] [place] Information [employer] Unavailable Un available Problems Problem Status Onset Classification Date Comments Sourc e Date Reported STROKE SYMPTOMS Active 06/03/20 [place] 16 [place] CVA Active 06/03/20 [facility] 16 [place] Discharge 05/29/20 06/01/2016 [facility] Diagnosis: Common 16 [place] dical migraine Center MIRGRAINE Active 05/29/[address] Diabetes mellitus Resolved Problem 06/07/2016 M H (disorder) [place] Hypertensive Resolved Problem 06/07/2016 disorder, [place] systemic arterial (disorder) Hyperlipidemia Resolved Problem 06/07/2016 (disorder) [place] Hypothyroidism Resolved Problem 06/07/2016 (disorder) [place] Migraine without Active Problem 06/07/2016 [facility] aura (disorder) [facility] CEREBRAL Active [facility] INFARCTION, [place] UNSPECIFIED Medications Medication Details Route Status Patient Ordering Order Source Instructions Provider Date Pneumovax 23 Notes: (Same Inactive as: Pneumovax [place] 23) Refrigerate {21 See Active (Methylprednisolo Instructions, 2015 [place] ne 4 MG Oral PO, Take by Tablet [Medrol]) mouth as } Pack [Medrol directed on Dosepak] label., X 6 day, # 1 Pack, 0 Refill(s) Aspirin 325 MG 325 mg = 1 Active Oral Tablet tab, PO, 2015 [place] Daily, # 30 tab, 0 Refill(s) Pneumovax 23 Notes: (Same Inactive as: Pneumovax 2015 [place] 23) Refrigerate pneumococcal Notes: (Same Inactive capsular as: Pneumovax 2015 [place] polysaccharide 23) type 1 vaccine / Refrigerate pneumococcal capsular polysaccharide type 10A vaccine / pneumococcal capsular polysaccharide type 11A vaccine / pneumococcal capsular polysaccharide type 12F vaccine / pneumococcal capsular polysacchar Aspirin Notes: Take Inactive with food. 2015 [place] potassium Notes: (Same No Longer chloride as: K-Dur 20) Active 2015 [place] "Do Not Crush" With food and full glass of water losartan 25 mg 25 mg = 1 Active oral tablet tab, PO, 2015 [place] Daily, 0 Refill(s) levothyroxine 125 125 microgram Active mcg (0.125 mg) = 1 cap, PO, 2015 [place] oral capsule Daily, # 30 cap, 3 Refill(s) Saline Flush 0.9% Notes: (Same No Longer as: BD Active 2015 [place] Posiflush) Saline Flush 0.9% Notes: (Same No Longer as: BD Active 2015 [place] Posiflush) tramadol 50 mg = 1 Active [place] hydrochloride 50 tab, PO, Q4H, 2015 edical MG Oral Tablet PRN Pain, X Cente r 10 day, # 60 tab, 0 Refill(s) Isolyte S PH-7.4 Notes: (Same Inactive H [place] ([place]ol[place]) IV as: Isolyte S 2016 Medical PH 7.4) [place] tramadol Notes: Not to Inactive [place] hydrochloride 50 exceed 2016 Medical MG Oral Tablet 400mg/day. Center (Same As: [facility]) Reglan Notes: (Same Inactive [place] as: Reglan) [address] [place] [address] Ketorolac 4 days Inactive [place] MEDICATION 2016 [facility] WASTE Center Product Size: 30 mg Product Wasted: ___ mg Diphenhydramine Notes: (Same Inactive [place] as: Benadryl) 2016 [facility] Sodium Chloride 1,000 mL, Inactive Te [...] Sour ce Given pneumococcal Right completed Shamji [facility] 23-valent 6 Deltoid vaccine Results Order Name Results Value Reference Date Interpretation Comments Shari rce Range ELECTROLYTE AGAP 11.6 10.0 - 08/12 MH S 20.0 /2015 [place] ELECTROLYTE B/C Ratio 17 6 - 25 08/12 MH S /2015 [place] ELECTROLYTE A/G Ratio 0.7 0.7 - 1.6 08/12 MH S /2015 [place] ELECTROLYTE Globulin 4.4 2.7 - 4.2 08/ MH S [place] ELECTROLYTE ALANINE 33 0 - 65 08/12 MH S AMINOTRANSFE /2015 [place] RASE ELECTROLYTE eGFR 115 / MH S Comment: The [place] eGFR is calculated using the CKD-EPI formula. [...] 0.3 0.2 - 1.3 08/12 MH S [place] ELECTROLYTE Calcium Lvl 8.9 8.5 - 10.5 /12 MH S /2016 [place] ELECTROLYTE CO2 25 24 - 32 08/12 MH S /2016 [place] ELECTROLYTE ASPARTATE 25 0 - 37 08/12 MH S TRANSAMINASE /2015 [place] ELECTROLYTE Total 7.5 6.4 - 8.4 08/12 MH S Protein [place] ELECTROLYTE Glucose Lvl 87 70 - 99 /12 MH S [place] ELECTROLYTE Alk Phos 100 39 - 136 08/12 MH S /2015 [place] ELECTROLYTE Albumin Lvl 3.1 3.5 - 5.0 08/12 MH S [place] ELECTROLYTE Chloride Lvl 110 95 - 109 08/12 MH S /2015 [place] ELECTROLYTE Potassium 3.6 3.5 - 5.1 08/12 MH S Lvl /2015 [place] ELECTROLYTE BUN 8 7 - 22 08/ MH S /2015 [place] ELECTROLYTE Creatinine 0.47 0.50 - 08/12 MH S Lvl 1.40 /2015 [place] ELECTROLYTE Sodium Lvl 143 135 - 145 08/12 MH S /2015 [place] HEMATOLOGY Hgb 12.1 12.0 - 08 MH 16.0 [place] HEMATOLOGY Hct 36.2 36.0 - 08/12 MH 48.0 /2015 [place] HEMATOLOGY MCV 95.0 80.0 - 08 MH 98.0 /2015 [place] HEMATOLOGY WBC X 10x3 7.5 3.7 - 10.4 08/ MH /2015 [place] HEMATOLOGY RBC X 10x6 3.81 4.20 - 08/ MH 5.40 /2015 [place] HEMATOLOGY MCH 31.8 27.0 - 08 MH 31.0 [place] HEMATOLOGY RDW 12.5 11.5 - 08 MH 14.5 [place] HEMATOLOGY MPV 8.2 7.4 - 10.4 08/ MH /2015 [place] HEMATOLOGY MCHC 33.5 32.0 - 08 MH 36.0 [place] HEMATOLOGY Platelet 328 133 - 450 08/ MH /2015 [place] HEMATOLOGY Lymphocytes 28.9 20.0 - 08/ MH 40.0 [place] HEMATOLOGY Monocytes 8.2 2.0 - 12.0 06/04 MH /2015 [place] HEMATOLOGY Eosinophils 0.9 0.0 - 4.0 06/04 [place] HEMATOLOGY Basophils 1.3 0.0 - 1.0 08/ MH [place] HEMATOLOGY Segs 60.7 45.0 - 08/ MH 75.0 /2015 [place] HEMATOLOGY Segs-Bands # 4.6 1.5 - 8.1 08 [place] HEMATOLOGY Monocytes # 0.6 0.0 - 0.8 08 MH [place] HEMATOLOGY Basophils # 0.1 0.0 - 0.2 08 MH [place] HEMATOLOGY Lymphocytes 2.2 1.0 - 5.5 08/ MH # /2015 [place] HEMATOLOGY Eosinophils 0.1 0.0 - 0.5 08/ MH # /2016 [place] CARDIAC CK-MB INDEX <1.1 0.0 - 2.5 06/04 MH ENZYMES /2016 [place] CARDIAC CK MB <0.5 0.5 - 3.6 / MH ENZYMES /2016 [place] CARDIAC Total CK 47 12 - 191 / MH ENZYMES /2016 [place] CARDIAC Troponin-I <0.02 0.00 - 08/ MH ENZYMES 0.40 /2016 [place] ELECTROLYTE Potassium 3.4 3.5 - 5.1 /12 MH S Lvl /2016 [place] ELECTROLYTE CO2 27 24 - 32 / MH S /2016 [place] ELECTROLYTE Sodium Lvl 142 135 - 145 / MH S /2016 [place] ELECTROLYTE BUN 8 7 - 22 / MH S /2016 [place] ELECTROLYTE Chloride Lvl 109 95 - 109 06/04 MH S /2016 [place] ELECTROLYTE Creatinine 0.56 0.50 - 08 MH S Lvl 1.40 [place] ELECTROLYTE AGAP 9.4 10.0 - 06/04 MH S 20.0 /2016 [place] ELECTROLYTE eGFR 108 / Result MH S /2016 Comment: The [place] eGFR is calculated using the CKD-EPI formula. [...] 70 - 99 06/04 MH S /2016 [place] ELECTROLYTE Calcium Lvl 8.9 8.5 - 10.5 06/04 MH S /2016 [place] HEMATOLOGY Eosinophils 0.6 0.0 - 4.0 06/04 MH /2015 [place] HEMATOLOGY Segs-Bands # 5.1 1.5 - 8.1 08/ MH /2015 [place] HEMATOLOGY Basophils 0.6 0.0 - 1.0 08/ MH /2015 [place] HEMATOLOGY Monocytes # 0.5 0.0 - 0.8 08/ MH /2015 [place] HEMATOLOGY Lymphocytes 2.2 1.0 - 5.5 08/12 MH # /2015 [place] HEMATOLOGY Plt Morph Normal / MH (06/03/16 10:43 PM) /2015 [place] and HEMATOLOGY Segs 64.4 45.0 - 06/04 MH 75.0 /2015 [place] HEMATOLOGY RBC Morph Normal 06/04 MH (06/03/16 10:43 PM) /2015 [place] and HEMATOLOGY Lymphocytes 27.6 20.0 - 06/04 MH 40.0 [place] HEMATOLOGY Monocytes 6.8 2.0 - 12.0 06/04 MH /2015 [place] HEMATOLOGY aPTT 47.8 22.9 - 08 MH 35.8 /2015 [place] HEMATOLOGY INR 1.12 0.85 - 06/04 MH 1.17 [place] HEMATOLOGY PROTIME 14.7 12.0 - 08 MH 14.7 /2015 [place] HEMATOLOGY RDW 12.3 11.5 - 08 MH 14.5 /2015 [place] HEMATOLOGY Platelet 346 133 - 450 06/04 MH /2015 [place] HEMATOLOGY MPV 8.2 7.4 - 10.4 06/04 /2015 [place] HEMATOLOGY Hgb 12.7 12.0 - 08 MH 16.0 [place] HEMATOLOGY Hct 38.2 36.0 - 06/04 MH 48.0 [place] HEMATOLOGY RBC X 10x6 3.99 4.20 - 08 MH 5.40 [place] HEMATOLOGY MCHC 33.2 32.0 - 08 MH 36.0 [place] HEMATOLOGY MCV 95.7 80.0 - 08 MH 98.0 [place] HEMATOLOGY MCH 31.8 27.0 - 08 MH 31.0 [place] HEMATOLOGY WBC X 10x3 7.9 3.7 - 10.4 08 MH /2015 [place] CARDIAC Troponin-I <0.02 0.00 - 08 MH ENZYMES 0.40 [place] CARDIAC CK MB <0.5 0.5 - 3.6 08/ MH ENZYMES /2016 [place] CARDIAC Total CK 49 12 - 191 08/ MH ENZYMES /2016 [place] CARDIAC CK-MB INDEX <1.0 0.0 - 2.5 / MH ENZYMES /2016 [place] CHEM PANEL eGFR 105 / Result /2015 Comment: The [place] eGFR is calculated using the CKD-EPI formula. [...] 15 6 - 25 08/ MH /2016 [place] CHEM PANEL Globulin 4.8 2.7 - 4.2 / MH /2015 [place] CHEM PANEL ASPARTATE 28 0 - 37 / MH [place] CHEM PANEL AGAP 9.3 10.0 - 08/ MH 20.0 /2016 [place] CHEM PANEL A/G Ratio 0.7 0.7 - 1.6 06/04 [place] CHEM PANEL Chloride Lvl 109 95 - 109 06/04 MH [place] CHEM PANEL CO2 26 24 - 32 / MH /2015 [place] CHEM PANEL Creatinine 0.61 0.50 - 08/12 MH Lvl 1.40 /2016 [place] CHEM PANEL Sodium Lvl 141 135 - 145 / MH /2015 [place] CHEM PANEL Potassium 3.3 3.5 - 5.1 / MH Lvl /2016 [place] CHEM PANEL Total 8.2 6.4 - 8.4 / MH [place] CHEM PANEL Bili Total 0.3 0.2 - 1.3 / [place] CHEM PANEL Calcium Lvl 8.9 8.5 - 10.5 / [place] CHEM PANEL BUN 9 7 - 22 08/ /2015 [place] CHEM PANEL ALANINE 37 0 - 65 08/ MH AMINOTRANSFE /2015 [place] RASE CHEM PANEL Albumin Lvl 3.4 3.5 - 5.0 08/ /2015 [place] CHEM PANEL Alk Phos 116 39 - 136 08/ MH /2015 [place] CHEM PANEL Glucose Lvl 129 70 - 99 08/ [place] HEMATOLOGY aPTT 37.9 22.9 - 08/ MH 35.8 /2015 [place] HEMATOLOGY MPV 8.5 7.4 - 10.4 08/ /2015 [place] HEMATOLOGY Platelet 353 133 - 450 08/ [place] HEMATOLOGY RDW 12.3 11.5 - 08 MH 14.5 [place] HEMATOLOGY MCHC 33.0 32.0 - 08 MH 36.0 [place] HEMATOLOGY Hgb 12.5 12.0 - 08 MH 16.0 [place] HEMATOLOGY WBC X 10x3 7.3 3.7 - 10.4 08/ /2015 [place] HEMATOLOGY RBC X 10x6 3.98 4.20 - 08 MH 5.40 /2015 [place] HEMATOLOGY Hct 38.0 36.0 - 08 MH 48.0 [place] HEMATOLOGY MCV 95.4 80.0 - 08 MH 98.0 [place] HEMATOLOGY MCH 31.5 27.0 - 08 MH 31.0 [place] HEMATOLOGY PROTIME 13.9 12.0 - 08 MH 14.7 [place] HEMATOLOGY INR 1.04 0.85 - 08 MH 1.17 [place] HEMATOLOGY Segs-Bands # 4.5 1.5 - 8.1 08/ /2015 [place] HEMATOLOGY Monocytes 7.1 2.0 - 12.0 / [place] HEMATOLOGY Basophils 0.6 0.0 - 1.0 / [place] HEMATOLOGY Eosinophils 0.7 0.0 - 4.0 / [place] HEMATOLOGY Lymphocytes 2.2 1.0 - 5.5 08/12 MH /2015 [place] HEMATOLOGY Monocytes # 0.5 0.0 - 0.8 08/ [place] HEMATOLOGY Segs 61.8 45.0 - 08/ MH 75.0 /2015 [place] HEMATOLOGY Lymphocytes 29.8 20.0 - 06/04 40.0 [place] URINE AND UA WBC 0-2 /HPF None Seen 06/04 STOOL /HPF /2015 [place] URINE AND UA Sq Epi Occasional Few /LPF 06/04 STOOL /LPF /2015 [place] URINE AND UA Bacteria Occasional None Seen 06/04 STOOL /HPF /HPF [place] URINE AND UA Ketones Negative Negative 06/04 [facility]OOL mg/dL mg/dL [place] URINE AND UA Glucose Negative Negative 06/04 [facility] mg/dL mg/dL [place] URINE AND UA Leuk Est Negative Negative 06/04 STO[facility] (06/03/16 7:19 PM) /2015 [place] URINE AND UA Nitrite Negative Negative 06/04 STO[place] (06/03/16 7:19 PM) [place] URINE AND UA Bili Negative Negative 06/04 STOOL *NA* /2015 [place] (06/03/16 7:19 PM) URINE AND UA Color Yellow Yellow 06/04 STOOL *NA* /2015 [place] (06/03/16 7:19 PM) URINE AND UA Protein Negative Negative 06/04 [facility] mg/dL mg/dL [place] URINE AND UA Blood Negative Negative 06/04 [facility]O[place] (06/03/16 7:19 PM) [place] URINE AND UA 2.0 0.1 - 1.0 06/04 STOOL Urobilinogen /2015 [place] URINE AND UA pH 7.5 5.0 - 8.0 06/04 STOOL [place] URINE AND UA Turbidity Clear Clear 06/04 [place] (06/03/16 7:19 PM) [place] URINE AND UA Spec Grav 1.010 <=1.030 06/04 STOOL /2015 [place] Pathology Reports No Data Provided for This Section Diagnostic Reports Report Value Date Source Brain wo contrast MRI Patient Name: JULIAN SCHERER 06/04/2016 [facility] : 1965; Age: 50 years y/o Female MR: [id number] Study: Brain wo contrast MRI 06/03/2016 11:33 [...] unremarkable brain MRI without cont rast. SL: [facility] Brain/Neck CTA Study: Brain/Neck CTA 06/03/2016 8:15 PM CDT 05/24 [facility] Patient Name: JULIAN SCHERER MR: [id number] : 1965; Age: 50 years y/o Female [...] CT 06/03/2016 6 :21 PM CDT 06/03/2016 [facility] Patient Name: JULIAN SCHERER MR: [id number] : 1965; Age: 50 years y/o Female [...] : 1965; Age: 50 years Female MR: [id number] Study: Chest 1view DX Order Time: 06/03/2016 [...] follow-up chest x-ray to document resolution. SL: [id number] Brain wo contrast CT EXAM: CT BRAIN WITHOUT CONTRAST 05/29/[address] [facility] DATE: 05/29/2016 3:16 PM CDT Cente r [...] Date Comments Source Heart Rate 76 06/04/2016 [facility] Temperature Oral (F) 97.9 F 06/04/2016 [place] Systolic (mm Hg) 149 06/04/2016 [place] Diastolic (mm Hg) 87 06/04/2016 [place] Respitory Rate 18 06/04/2016 [facility] Systolic (mm Hg) 144 06/04/2016 [facility] Diastolic (mm Hg) 95 06/04/2016 [facility] d Temperature Oral (F) 97.7 F 06/04/2016 [facility] Heart Rate 78 06/04/2016 [place] Respitory Rate 18 06/04/2016 [facility] Temperature Oral (F) 98.1 F 06/04/2016 [place] Systolic (mm Hg) 135 06/04/2016 [place] Diastolic (mm Hg) 89 06/04/2016 [place] Respitory Rate 18 06/04/2016 [facility] Heart Rate 69 06/04/2016 [facility] Height 152.4 cm 06/04/2016 [facility] Weight 71.903 06/04/2016 [facility] BMI Calculated 30.96 06/04/2016 [facility] Weight 71.364 06/03/2016 [facility] BMI Calculated 30.73 06/03/2016 [facility] Height 152.4 cm 06/03/2016 [place] Respitory Rate 18 05/29/2016 [facility] Temperature Oral (F) 99.8 F 05/29/2016 [facility] Systolic (mm Hg) 127 05/29/2016 [facility] Diastolic (mm Hg) 67 05/29/2016 [facility] Heart Rate 96 05/29/2016 [facility] Temperature Oral (F) 100.9 F 05/29/2016 [facility] Heart Rate 91 05/29/2016 [facility] Respitory Rate 18 05/29/2016 [facility] Systolic (mm Hg) 149 05/29/2016 [facility] Diastolic (mm Hg) 61 05/29/2016 [facility] Systolic (mm Hg) 149 05/29/2016 [facility] Diastolic (mm Hg) 79 05/29/2016 [facility] Temperature Oral (F) 99.5 F 05/29/2016 [facility] Heart Rate 98 05/29/2016 [facility] Respitory Rate 22 05/29/2016 [facility] BMI Calculated 30.73 05/29/2016 [facility] Height 152.4 cm 05/29/2016 [facility] Weight 71.364 05/29/2016 [facility] Encounters Location Location Encounter Encounter Reason Attending ADM DC Stat us Source Details Type Number For Provider Date Date Visit [facility] [place] [id number] Bill 05/29 05/30 [facility] Emergency Nehemiah /2015 [facility] [id number] Ayyash 06/03 06/04 [facility] [place] /2015 [facility] Procedures Procedure Code Date Perfomer Comments Source Gallbladder [id number] [facility] operation Hysterotomy [id number] [facility] Assessment and Plan Assessment and Plan Date Source Extracted from:Title: Teleneurology Consultation 06/04/2016 [facility] Author: Halina Poe MD Date: 06/04/16 TELEMEDICINE NEUROLOGY - CONSULTATION Date of Consult: 06/04/16 CC: slurred speech and severe headache HISTORY OF PRESENT ILLNESS: 50 year old with HTN, DM, HL, 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 -Would prescribe Medrol dose pack in oralia e headache returns before patient follows up with neurologist. Patient has also been advised to take magnesium over the counter daily to prevent headache and encouraged PO fluid intake, rest when needed. -Elevated PTT on one read, patient has a n appointment with her environmental field professional in 07/2016 would have it rechecked at that time, and if not done yet evaluate for lupus anticoagulant. At this point however there is no change in management. -Neurology follow up. Patient understand s the importance of neurology follow up for chronic migraine headache management. She was provided the phone number for [facility] ([phone]) if she would like to follow up [...] with any interim questions. Halina Poe MD Electrical Electronics Technician, Neurology Call center [phone] Addendum by Halina Poe MD on 06/04/2016 11:18 No further recommendations from neurolog y aside from formal swallow eval and outpatient follow up as described in plan below. Please call if any additional questions. Plan of Care No Data Provided for This Section Social History Social History Date Source Social History TypeResponse 06/04/2016 [facility] Smoking Status Never smoker; Ready to change: No; Shwetha rns about tobacco use in household: No; Exposure to Tobacco Smoke None; Cigarette Smoking Last 365 Days No; Reg Smoking Cessation Counseling No Social History TypeResponse 05/29/2016 [facility] Smoking Status Never smoker; Ready to [...]
--- OUTSIDE RECORDS SUMMARY | 2020-08-11 14:37 | XMS REPORT | Continuity of Care Document ---
:1965 Author Organization [facility] t Address [address] [place] [address] Care Team Providers Name Role Phone Steve Oneal MD Attending Clinician [phone] Doctor Unassigned, Name Attending Clinician Unavailable Pob, Lab Main Attending Clinician Unavailable Only, Test Attending Clinician Unavailable Hillary White Attending Clinician Melo Cerna Attending Clinician Isiah Oneal MD Admitting Clinician Hillary White Admitting Clinician Problems Condition Condition Condition Status Onset Resolution Last Treating Co mments Source Name Details Category Date Date Treatment Clinician Date STROKE Diagnosis Active 2016-06-03 Mem oria SYMPTOMS 06-03 18:44:00 l STROKE 00:00: Ruffin SYMPTOMS 00 Active 06/03/2016 [facility] Dean CVA Diagnosis Active 2016-06-08 Mem oria 06-03 09:35:00 l CVA 00:00: Dean 00 Active 06/03/2016 [facility] Dean MIRGRAINE Diagnosis Active 2016-05-29 Memoria 05-29 15:03:00 l 00:00: Edan MIRGRAINE 00 Active 05/29/2016 [facility] Diabetes Problem Resolve 2016-06-07 Al moria mellitus d 03:01:56 l (disorder) Diabetes He rmann mellitus (disorder) Resolved Problem 06/07/2016 [place] Hypertensi Problem Resolve 2016-06-07 Memoria ve d 03:01:56 l disorder, Ruffin systemic Hypertensi arterial ve (disorder) disorder, systemic arterial (disorder) Resolved Problem 06/07/2016 [facility] Hyperlipid Problem Resolve 2016-06-07 Memoria emia d 03:01:56 l (disorder) Farzad n Hyperlipid emia (disorder) Resolved Problem 06/07/2016 [facility] Hypothyroi Problem Resolve 2016-06-07 Memoria dism d 03:01:56 l (disorder) Farzad n Hypothyroi dism (disorder) Resolved Problem 06/07/2016 [facility] Migraine Problem Active 2016-06-07 Mem oria without 03:01:56 l aura Migraine Farzad n (disorder) without aura (disorder) Active Problem 06/07/2016 [facility] CEREBRAL Diagnosis Active 2016-06-08 M emoria INFARCTION 09:35:00 l , CEREBRAL Farzad n UNSPECIFIE INFARCTION D , UNSPECIFIE D Active [facility] Discharge Problem 2016-06-01 2016-06-01 Memoria Diagnosis: 8- 01:52:24 01:52:24 l Common 05:00: Ruffin migraine Discharge 00 Diagnosis: Common migraine 6 06/01/2016 [facility] Allergies, Adverse Reactions, Alerts This patient has no known allergies or adverse reactions. Social History Smoking Status Start Date Stop Date Source Social History [facility] Medications Ordered Filled Start Stop Current Ordering Indication Dosage Frequency Signature Comments Components Source Medication Medication Date Date Medication? Clinician (SIG) Name Name Pneumovax No Notes: Memori a 23 06-04 (Same as: l 20:44: Pneumovax Ruffin ) Refrigerat e { Yes See Memoria (Methylpred 06-04 Instructio l nisolone 4 20:31: ns, PO, Herm maximilian MG Oral 00 Take by Tablet mouth as [Medrol]) } directed Pack on label., [Medrol X 6 day, # Dosepak] 1 Pack, 0 Refill(s) Aspirin 325 Yes 325 mg = 1 Memoria MG Oral 06-04 tab, PO, l Tablet 20:31: Daily, # Dean 00 30 tab, 0 Refill(s) Pneumovax No Notes: Memori a 23 06-04 (Same as: l 15:00: Pneumovax Dean 23) Refrigerat e pneumococca No Notes: Schuyler yonis l capsular 8-12 (Same as: l polysacchar 14:00: Pneumovax H ermann octavio type 1 ) vaccine / Refrigerat pneumococca e l capsular polysacchar octavio type 10A vaccine / pneumococca l capsular polysacchar octavio type 11A vaccine / pneumococca l capsular polysacchar octavio type 12F vaccine / pneumococca l capsular polysacchar Aspirin No Notes: Memoria 8-12 Take with l 14:00: food. Ruffin potassium No Notes: Memori a chloride 8-12 (Same as: l 04:49: K-Dur 20) Dean 00 "Do Not Crush" With food and full glass of water losartan 25 Yes 25 mg = 1 M emoria mg oral 812 tab, PO, l tablet 03:55: Daily, 0 Dean 00 Refill(s) levothyroxi Yes 125 Memori a ne 125 mcg 8-12 microgram l (0.125 mg) 03:55: = 1 cap, Her cantrell oral 00 PO, Daily, capsule # 30 cap, 3 Refill(s) Saline No Notes: Memoria Flush 0.9% 8-12 (Same as: l 01:28: BD Dean Posiflush) Saline No Notes: Memoria Flush 0.9% 8-11 (Same as: l 23:21: BD Dean Posiflush) tramadol Yes 50 mg = 1 Schuyler yonis hydrochlori 06 tab, PO, l de 50 MG 23:47: Q4H, PRN Mary nn Oral Tablet 00 Pain, X 10 day, # 60 tab, 0 Refill(s) Isolyte S No Notes: Memori a PH-7.4 8 (Same as: l (Bolus) IV 21:42: Isolyte S He rmann PH 7.4) tramadol Yes Notes: Not Mem oria hydrochlori 05-29 to exceed l de 50 MG 21:41: 400mg/day. Her cantrell Oral Tablet 00 (Same As: Ultram) Reglan No Notes: Memoria 8-06 (Same as: l 19:47: Reglan) Dean Ketorolac 2016-0 No 4 days Memor ia 05-29 l 19:47: MEDICATION Dean 00 WASTE Product Size: 30 mg Product Wasted: ___ mg Diphenhydra No Notes: Schuyler yonis mine 05-29 (Same as: l 19:45: Benadryl) Dean 00 Sodium No 1,000 mL, Memori a Chloride 05-29 2,000 l 0.154 19:45: ml/hr, Ruffin MEQ/ML 00 Infuse Injectable Over: 30 Solution minutes, Route: IV, 1,000, Drug form: INJ, ONCE, Priority: STAT, Dosing Weight 71.364 kg, Start date: 05/29/16 14:45:00 CDT, Duration: 1 doses or times, Stop date: 05/29/16 14:45:00 CDT Vital Signs Vital Name Observation Time Observation Value Comments Source Heart Rate 2016-06-04 21:08:00 [facility] Temperature Oral (F) 2016-06-04 21:08:00 97.9 F [facility] Ruffin Systolic (mm Hg) 2016-06-04 21:08:00 Schuyler rial Dean Diastolic (mm Hg) 2016-06-04 21:08:00 Mem orial Dean Respitory Rate 2016-06-04 21:08:00 Memori al Ruffin Systolic (mm Hg) 2016-06-04 16:48:00 Schuyler rial Dean Diastolic (mm Hg) 2016-06-04 16:48:00 Mem orial Ruffin Temperature Oral (F) 2016-06-04 16:48:00 97.7 F [facility] Heart Rate 2016-06-04 16:48:00 [facility] Respitory Rate 2016-06-04 16:48:00 Memori al Dean Temperature Oral (F) 2016-06-04 12:33:00 98.1 F [facility] Ruffin Systolic (mm Hg) 2016-06-04 12:33:00 Schuyler rial Ruffin Diastolic (mm Hg) 2016-06-04 12:33:00 Mem orial Dean Respitory Rate 2016-06-04 12:33:00 Memori al Ruffin Heart Rate 2016-06-04 12:33:00 [facility] Height 2016-06-04 03:42:00 152.4 cm [facility] Weight 2016-06-04 03:42:00 [facility] [place] BMI Calculated 2016-06-04 03:42:00 Memori al Dean Weight 2016-06-03 23:16:00 [facility] BMI Calculated 2016-06-03 23:16:00 Memori al Dean Height 2016-06-03 23:16:00 152.4 cm [facility] [place]uffin Respitory Rate 2016-05-29 23:47:00 Memori al Dean Temperature Oral (F) 2016-05-29 23:47:00 99.8 F [facility] Systolic (mm Hg) 2016-05-29 23:47:00 Schuyler rial Dean Diastolic (mm Hg) 2016-05-29 23:47:00 Mem orial Ruffin Heart Rate 2016-05-29 23:47:00 [facility] Temperature Oral (F) 2016-05-29 21:03:00 100.9 F [facility] [place] Heart Rate 2016-05-29 21:03:00 [facility] Dean Respitory Rate 2016-05-29 21:03:00 Memori al Ruffin Systolic (mm Hg) 2016-05-29 21:03:00 Schuyler rial Ruffin Diastolic (mm Hg) 2016-05-29 21:03:00 Mem orial Dean Systolic (mm Hg) 2016-05-29 19:01:00 Schuyler rial Dean Diastolic (mm Hg) 2016-05-29 19:01:00 Mem orial Dean Temperature Oral (F) 2016-05-29 19:01:00 99.5 F [facility] Heart Rate 2016-05-29 19:01:00 [facility] Respitory Rate 2016-05-29 19:01:00 Memori al Ruffin BMI Calculated 2016-05-29 19:01:00 Memori al Ruffin Height 2016-05-29 19:01:00 152.4 cm [facility] R[place]in Weight 2016-05-29 19:01:00 [facility] Procedures Procedure Date / Time Performed Performing Clinician [facility] e Gallbladder operation [facility] H ermann Hysterotomy [facility] Encounters Start End Encounter Admission Attending Care Care Encounter Source Date/Time Date/Time Type Type Clinicians Facility Department ID 2020-07-02 2020-07-02 [facility] [id number] 06:46:00 10:22:00 Encounter Steve Saenz [id number] [place] [id number] Surgical [id number] [place] 071 2020-07-02 2020-07-02 Orders Doctor JUSTIN [id number] 00:00:00 00:00:00 Only Unassigned, RENA [id number] [facility] [id number] [id number] 2020-07-01 2020-07-01 Plumber'S Assistant Doris, [facility] [id number] 08:56:05 10:00:30 Visit Lab Main Letty [id number] [place] [id number] Professio [id number] [address] 2020-07-01 2020-07-01 Laboratory Only, [facility] [id number] 08:51:03 09:06:03 Only Test Letty [id number] [place] 4.2.7.2.686 [place] [id number] 2016-06-03 2016-06-04 Outpatient CARTER White [facility] [id number] 18:06:00 18:25:00 Ayyabilly Y 2016-05-29 2016-05-29 Outpatient Nehemiah [facility] [id number] 13:59:00 19:17:00 Bill 00 Luke Results [...] code = MCH) 31.8 pg 27.0-31.0 [facility] MdvubndQWGFXYKQMF4756-33-68 10:10:0012.5[facility] 2016-06-04 10:10:008.2[facility] LywlpdmYZNSOYSRPI8415-63-53 10:10:0033.5[facility] TbvzbjsDWTLRXWBXE8609-13-57 10:10:94034Jsvukail ZethukoIARCAQKDGY1065-13-36 10:10:0028.9[facility] YuvltqtXJTLDZVQJI0815-73-03 10:10:008.2[facility] Dean DFMOSBNHQO5984-40-42 10:10:000.9[facility] WvxtdxyTMNMRDTZAU8168-27-07 10:10:001.3 Memorial DmbinpnNPJBKVOQQH0695-92-98 10:10:0060.7[facility]ann[facility]Y 2016-06-04 10:10:004.6[facility] KvaennxBSXTGGTOAS8146-99-27 10:10:000.6[facility] ZktpljwOWXVLRXZAK5949-34-25 10:10:000.1[facility] UesymzbJQXFIGFSRW1087-59-82 10:10:002.2[facility] JhyaesvFVSSBTZVIB8650-88-40 10:10:000.1[facility] CARDIAC BUAGBOZ3589-04-52 03:43:00<1.1[facility]annCARDIAC ENZYMES 2016-06-04 03:43:00<0.5[facility] HermannCARDIAC DJWJJDH0135-96-49 03:43:0047 [facility] BPBWIAB1416-82-00 03:43:00<0.02[facility] AVNJHBZRZWPZ7312-77-13 03:43:003.4[facility] EzriixaAGNMWRMDNWOZ2598-04-72 03:43:0027[facility] VdayhtuDKYIATEYUJMD2746-71-83 03:43:83853Zerrwgrx Ruffin XLPREHREFOKN0505-47-93 03:43:008[facility] HbvitmyZYFALMJCHWRO4584-23-82 03:43:00 109[facility] FtkjshyEOJHLPDSUMFD7402-89-76 03:43:000.56[facility] YPJJACDEPRQE2179-16-97 03:43:009.4[facility] WaduhpnTCRFTEYZSFEE9658-90-67 03:43:74477Krjuzukj VnfkyfdGFOCRPBOIBJU2165-81-40 03:43:0097[facility] HQYBQXSEOXKO5229-57-16 03:43:008.9[facility] UgbbgbsICVOEIBZEF2017-44-70 03:43:00 0.6[facility] AlrgcxpFHHZPNXGZQ9479-53-19 03:43:005.1[facility]ann[facility]MATOLOGY 2016-06-04 03:43:000.6[facility] JgnzmfvVIKODNVLIQ1830-60-08 03:43:000.5[facility] CysvkotQYMEHUAWHV1311-03-12 03:43:002.2[facility] OuqvteyUFFASPPZDT5236-94-83 03:43:00Normal (06/03/16 10:43 PM)[facility] BpaugweHWGCQODUJE0812-22-15 03:43:00 64.4[facility] LkyhcktCPKHIQLWEX9584-05-88 03:43:00Normal (06/03/16 10:43 PM) Memorial KfiljasYXJVJKJYQT4704-22-73 03:43:0027.6[facility]ann[facility]MATOLOGY 2016-06-04 03:43:006.8[facility] HaqazqjAQIRKZAJPG7619-42-22 03:43:00 Test Item Value Reference Range Interpretation Comments aPTT (test code = aPTT) 47.8 s 22.9-35.8 Memorial GqtkeghFZBHVMWWQX3595-19-92 03:43:001.12[facility]ann[facility]MATOLOGY 2016-06-04 03:43:00 Test Item Value Reference Range Interpretation Comments PROTIME (test code = PROTIME) 14.7 s 12.0-14.7 Memorial GeaookuMBNXSRWCKL7304-34-22 03:43:0012.3[facility]annHEMATOLOGY 2016-06-04 03:43:11389Sgirsych TupymyjKAVQNQYSTJ1934-78-58 03:43:008.2[facility] SocyisvAYGYVKTPQE2074-54-14 03:43:0012.7[facility] EigvvorQTQNMBCAZZ6593-50-25 03:43:0038.2[facility] UzmvrvxXEWDIAVBTM8403-86-02 03:43:003.99[facility] Dean JHROYLCVBZ8402-05-37 03:43:0033.2[facility] FrdrutxPUDEKPFHXU5343-38-36 03:43:00 95.7[facility] WswyqueJYFWMTIAZA6941-59-17 03:43:00 Test Item Value Reference Range Interpretation Comments MCH (test code = MCH) 31.8 pg 27.0-31.0 [facility] UxljceaETUNYAUIHE0668-28-73 03:43:007.9[facility]annCARDIAC ENZYMES 2016-06-04 00:19:00<0.02[facility]annCARDIAC YYYPUZF4915-24-26 00:19:00 <0.5[facility]annCARDIAC UIIYXET9781-04-89 00:19:0049[facility] CARDIAC ZKQQNQU6030-38-07 00:19:00<1.0[facility] HermannCHEM VZUFL2249-40-99 00:19:97130Zpimoccq HermannCHEM YFQVF3004-87-02 00:19:0015[facility] HermannCHEM XJWPZ0792-36-72 00:19:004.8[facility] HermannCHEM VWSYW0605-34-91 00:19:0028 [facility]annCHEM CUWWE1217-40-12 00:19:009.3[facility] HermannCHEM PANEL 2016-06-04 00:19:000.7[facility] HermannCHEM KZINN0266-26-53 00:19:89225Nlvwrxrh HermannCHEM RKZJG3392-73-42 00:19:0026[facility] HermannCHEM RXNJR7347-97-65 00:19:000.61[facility] HermannCHEM ZYUBY1347-60-56 00:19:43641Riglanpf HermannCHEM MVQIU6054-93-52 00:19:003.3[facility] HermannCHEM SABIS3783-58-67 00:19:008.2 [facility]annCHEM RYSYD8476-61-59 00:19:000.3[facility] HermannCHEM PANEL 2016-06-04 00:19:008.9[facility] HermannCHEM PLBNG2380-88-04 00:19:009[facility] HermannCHEM ENLFJ3690-52-72 00:19:0037[facility] HermannCHEM JONYN5728-43-84 00:19:003.4[facility] HermannCHEM JWEVD1128-28-47 00:19:84134Igqdqiho HermannCHEM KOWAE8007-43-13 00:19:12815Rjqrmmqc GhyahujJYUKZSRNON3195-10-69 00:19:00 Test Item Value Reference Range Interpretation Comments aPTT (test code = aPTT) 37.9 s 22.9-35.8 [facility] AngcuxqIKDEGJPBKS2278-02-88 00:19:008.5[facility]annHEMATOLOGY 2016-06-04 00:19:13919Qfrljwfk WrnvigvRIHGICDGLJ9888-38-74 00:19:0012.3[facility] HqeavluOKLTBQGZVS3835-16-65 00:19:0033.0[facility] BfhmrriNWZDKRAZBD4460-41-69 00:19:0012.5[facility] IwcqkxqMLYOTTTWXL3357-01-04 00:19:007.3[facility] ZFGJRJWZCV3512-51-08 00:19:003.98[facility] ElyibfkIVKHLZTOZP4006-03-20 00:19:00 38.0[facility] EqistupGHFQBXHVQO2994-96-89 00:19:0095.4[facility] HermannHEMATOLOGY 2016-06-04 00:19:00 Test Item Value Reference Range Interpretation Comments MCH (test code = MCH) 31.5 pg 27.0-31.0 [facility] DrkxykhKLANKBIIXZ8126-61-66 00:19:00 Test Item Value Reference Range Interpretation Comments PROTIME (test code = PROTIME) 13.9 s 12.0-14.7 Memorial WmpyrfbTKSPAOSDTL2159-55-86 00:19:001.04[facility] HermannHEMATOLOGY 2016-06-04 00:19:004.5[facility] HkaejiiZCIGTVFXFG6116-66-41 00:19:007.1[facility] YmidealJMVKTAQMWX1883-37-11 00:19:000.6[facility] GrszknuULBLLLNNHR8929-69-35 00:19:000.7[facility] ByxvzjaHJIOQGIYWS6844-57-29 00:19:002.2[facility] FCXWLDXDCS2336-19-96 00:19:000.5[facility] LuomtxsBFFJDGDQOZ8279-78-43 00:19:00 61.8[facility] MgcwxlnRQQHCNKTOP0108-81-29 00:19:0029.8[facility] HermannURINE AND RPZTZ4077-00-36 00:19:00Negative (06/03/16 7:19 PM)[facility] AND JKVPN6771-36-87 00:19:00Negative (06/03/16 7:19 PM)[facility] AND QMFXP8641-14-52 00:19:00Negative *NA*(06/03/16 7:19 PM)[facility] AND ZFQKY3672-82-31 00:19:00Yellow *NA*(06/03/16 7:19 PM)[facility] EUMSB8346-85-84 00:19:00Negative (06/03/16 7:19 PM)[facility] NSJCZ1409-00-25 00:19:002.0[facility]ann[facility] AND VYYMO5348-35-58 00:19:00 Test Item Value Reference Range Interpretation Comments UA pH (test code = UA pH) 7.5 1 5.0-8.0 [facility] LFNHE7609-34-04 00:19:00Clear (06/03/16 7:19 PM) [facility] AKYQD8986-41-54 00:19:00 Test Item Value Reference Range Interpretation Comments UA Spec Grav (test code = UA Spec 1.010 1 Grav) [facility]
--- OUTSIDE RECORDS SUMMARY | 2020-08-11 14:37 | XMS REPORT | Summary of Care ---
:1965 Author Organization [facility] - Health Address [address] [place] [address] Care Team Providers Name Role Phone Missy Cabrera MD Primary Care Provider [phone] Nela Del Toro Neurologist Encounter Details Date Type Department Care Team Description 07/01/2020 Orders Only [facility] Doctor Unassigned, No [address] [facility] [place] [address] [address] [place] [address] Allergies No Known Allergiesdocumented as of this encounter (statuses as of 07/01/2020) Medications Medication Sig Dispensed Refills Start Date [...] with long-term current use of insulin Insulin [place], Use 2 times 180 Each 3 05/24/2018 Active Disposable, (BD daily with ULTRAFINE III MINI insulin pens PEN) 31 gauge x 3/16" NdleIndications: Uncontrolled type 2 diabetes mellitus with diabetic polyneuropathy, with long-term current use of insulin spironolactone 25 mg Take 1 tablet by 90 tablet 3 04/30/2019 Active tabletIndications: mouth daily. Essential hypertension Jruxhxujev-Mxsufngcd-Y Take 1 tablet by 90 tablet 3 04/30/2019 Active CTZ 10-320-25 mg mouth daily. TabIndications: Essential hypertension rosuvastatin 40 mg Take 1 tablet by 90 tablet 3 04/30/2019 Active tabletIndications: mouth daily. Essential hypertension icosapent ethyl Take 2 capsules 120 capsule 5 05/01/2019 Active (VASCEPA) 1 gram by mouth 2 (two) capsuleIndications: times daily. Mixed hyperlipidemia fluticasone propionate Use 1 [place] in 16 g 0 07/04/2019 Active 50 mcg/actuation nasal each nostril sprayIndications: daily. Acute non-recurrent frontal sinusitis, Congestion of nasal sinus levothyroxine 137 mcg Take 1 tablet by [...] type JANUVIA 25 mg TAKE 1 TABLET BY 30 tablet 3 02/21/2020 Active tabletIndications: MOUTH DAILY Type 2 diabetes mellitus with complication, with long-term current use of insulin dulaglutide inject 1.5 mg 6 mL 0 04/25/2020 Act [place] (TRULICITY) 1.5 mg/0.5 under the skin mL PnIjIndications: weekly. Uncontrolled type 2 diabetes mellitus with diabetic polyneuropathy, with long-term current use of insulin documented as of this encounter (statuses as of 07/01/2020) Active Problems Problem Noted Date Acute non-recurrent [...] as of this encounter (statuses as of 07/01/2020) Immunizations Name Administration Dates Next Due Influenza [...] Assigned at Date Recorded Not on file COVID-19 Exposure Response Date Recorded In the last month, have you been in contact with No / Unsure 06/27/2020 2:26 PM CDT someone who was confirmed or suspected to have Coronavirus / COVID-19? documented as of this encounter Last Filed Vital Signs Not on filedocumented in this encounter Plan of Treatment Date Type Specialty Care Team Description 07/02/2020 Hospital Encounter Surgery Steve Oneal MD [address] [place] [address] [id number] 07/02/2020 Anesthesia Event Surgery Lior Richter C [address] [address] [phone] 07/02/2020 Surgery Surgery Steve Oneal MD CUFF REPAIR [address] [address] [phone] Health Maintenance Due Date Last Done Comments COLON CANCER SCREENING 2014 ANNUAL FIT/FOBT COLON CANCER SCREENING FIT 2014 DNA EVERY 3 YEARS COLON CANCER SCREENING 2014 SIGMOIDOSCOPY EVERY 5 YEARS FOOT EXAM 05/24/2019 05/24/2018, 05/24/2018, 02/13/2018, Additional [...] 05/02/2019, 03/30/2018, (MAMMOGRAM) 03/18/2017, Additional history exists INFLUENZA VACCINE (#1) 2020 07/02/2019, 09/20/2018, 08/11/2017, Additional history exists Depression Screening 08/15/2020 08/15/2019, 08/13/2019 DTaP,Tdap,and Td Vaccines 06/26/2029 06/26/2019 (2 - Td) COLONOSCOPY 08/15/2029 08/15/2019, 12/06/2018, 06/21/2013 (Previously completed) Colorectal Cancer Screening 08/15/2029 PAP SMEAR Discontinued 07/02/2011 (Previously completed) HEPATITIS C (HCV) SCREEN Completed 03/30/2017, 07/13/2016 PNEUMOCOCCAL 0-64 YEARS Aged Out 04/30/2019 No longe r eligible COMBINED SERIES based on patient 's age to complete this topic documented as of this encounter Procedures Procedure Name Priority Date/Time Associated Diagnosis Comme nts ASSIGNMENT OF BENEFITS Routine 07/01/2020 8:48 AM CDT documented in this encounter Results Not on filedocumented in this encounter Insurance Payer Benefit Plan / Subscriber ID Effective Dates Phone Addre ss Type Group MEDICARE MEDICARE PART [id number] 2006-[place] [phone] Medicare A & B t 2 [id number] [place] [address] [facility] MEDICAID OF [id number] 2018-Libby [phone] Medicaid [place] t 0 [id number] [place] [address] documented as of this encounter
--- OUTSIDE RECORDS SUMMARY | 2020-08-11 14:37 | XMS REPORT | Summary of Care ---
:1965 Author Organization [facility] Address [address] [place] [address] Care Team Providers Name Role Phone Missy Cabrera MD Primary Care Provider [phone] Nela Del Toro Neurologist Reason for Visit Reason Comments Pre-Op Exam Auth/Cert Status Reason Specialty Diagnoses / Referred By Referred To Procedures Contact Contact Clinical Medical Diagnoses [id number] Adc Lab Laboratory Procedures covid [address] [place] [address] Encounter Details Date Type Department Care Team Description 07/01/2020 Drainman Visit [facility] Medhat Oneal MD [address] [id number] Strain of tendon of Professional Office Pob, Adc Lab Main right rotator cuff, Building Phlebotomy initial encounter Lab (Primary Dx) Professional Office Building [address] [facility] , [address] [place] [address] Allergies No Known Allergiesdocumented as of this [...] with long-term current use of insulin Insulin [place], Use 2 times 180 Each 3 05/24/2018 Active Disposable, (BD daily with ULTRAFINE III MINI insulin pens PEN) 31 gauge x 01/06" NdleIndications: Uncontrolled type 2 diabetes mellitus with diabetic polyneuropathy, with long-term current use of insulin spironolactone 25 mg Take 1 tablet by 90 tablet 3 04/30/2019 Active tabletIndications: mouth daily. Essential hypertension Xvrniepzdv-Tjittosit-A Take 1 tablet by 90 tablet 3 04/30/2019 Active CTZ 10-320-25 mg mouth daily. TabIndications: Essential hypertension rosuvastatin 40 mg Take 1 tablet by 90 tablet 3 04/30/2019 Active tabletIndications: mouth daily. Essential hypertension icosapent ethyl Take 2 capsules 120 capsule 5 05/01/2019 Active (VASCEPA) 1 gram by mouth 2 (two) capsuleIndications: times daily. Mixed hyperlipidemia fluticasone propionate Use 1 [place] in 16 g 0 07/04/2019 Active 50 [...] been in contact with No / Unsure 07/01/2020 8:50 AM CDT someone who was confirmed or suspected to have Coronavirus / COVID-19? documented as of this encounter Last Filed Vital Signs Not on filedocumented in this encounter Plan of Treatment Date Type Specialty Care Team Description 07/02/2020 Hospital Encounter Surgery Steve Oneal MD [address] [facility] [address] [place] [address] 07/02/2020 Anesthesia Event Surgery Lior Richter C RNA [address] [place] [phone] 07/02/2020 Surgery Surgery Steve Oneal OPEN SHOUL АЛЕКСАНДР ROTATOR MD Isiah CUFF REPAIR [address] [address] Name Type Priority Associated Diagnoses Order S chedule CBC WITH DIFF LAB Routine Strain of tendon of right E xpected: 07/01/2020, rotator cuff, initial s: 07/01/2021 encounter BASIC METABOLIC PANEL LAB Routine Strain of tendon of right Expected: 07/01/2020, (NA, K, CL, CO2, rotator cuff, initial Ex robert: 07/01/2021 GLUCOSE, BUN, encounter CREATININE, CA) Health Maintenance Due Date Last Done Comments [...] this topic documented as of this encounter Results Not on filedocumented in this encounter Visit Diagnoses Diagnosis Strain of tendon of right rotator cuff, initial encounter - Primary documented in this encounter Insurance Payer Benefit Plan / Subscriber ID Effective Dates Phone Addre ss Type Group MEDICARE MEDICARE PART [id number] 2006-[place] [phone] [address] Medicare A & B t 2 [id number] [place] [address] [facility] MEDICAID OF [id number] 2018-[place] [phone] [address] Medicaid [place] t 0 [id number] [place] [address] documented as of this encounter
--- OUTSIDE RECORDS SUMMARY | 2020-08-11 14:37 | XMS REPORT | Summary of Care ---
:1965 Author Organization [facility] Address [address] [place] [address] Care Team Providers Name Role Phone Missy Cabrera MD Primary Care Provider [phone] Nela Del Toro Neurologist Reason for Visit Reason Comments Pre-Op Exam Auth/Cert Status Reason Specialty Diagnoses / Referred By Referred To Procedures Contact Contact Clinical Medical Diagnoses [id number] [facility] Lab Laboratory Procedures covid [address] [place] [address] Encounter Details Date Type Department Care Team Description 07/01/2020 Pin Puller Visit [facility] Medhat Oneal MD [address] [id number] Strain of tendon of Professional Office Pob, [facility] Lab Main right rotator cuff, Building Phlebotomy initial encounter Lab (Primary Dx) Professional Office Building [address] [facility] , [address] [place] [address] Allergies No Known Allergiesdocumented as [...] with long-term current use of insulin Insulin [place], Use 2 times 180 Each 3 05/24/2018 Active Disposable, (BD daily with ULTRAFINE III MINI insulin pens PEN) 31 gauge x 01/06" NdleIndications: Uncontrolled type 2 diabetes mellitus with diabetic polyneuropathy, with long-term current use of insulin spironolactone 25 mg Take 1 tablet by 90 tablet 3 04/30/2019 Active tabletIndications: mouth daily. Essential hypertension Jzlddrozmt-Fjmwyytkr-I Take 1 tablet by 90 tablet 3 04/30/2019 Active CTZ 10-320-25 mg mouth daily. TabIndications: Essential hypertension rosuvastatin 40 mg Take 1 tablet by 90 tablet 3 04/30/2019 Active tabletIndications: mouth daily. Essential hypertension icosapent ethyl Take 2 capsules 120 capsule 5 05/01/2019 Active (VASCEPA) 1 gram by mouth 2 (two) capsuleIndications: times daily. Mixed hyperlipidemia fluticasone propionate Use 1 [place] in 16 g 0 07/04/2019 Active 50 [...] Hospital Encounter Surgery Steve Oneal MD [address] [facility] [address] [place] [address] 07/02/2020 Anesthesia Event Surgery Lior Richter C [address] [phone] 07/02/2020 Surgery Surgery Steve Oneal OPEN SHOUL АЛЕКСАНДР ROTATOR MD Isiah CUFF REPAIR [address] [address] Name Type Priority Associated Diagnoses Date/Ti me CBC WITH DIFF LAB Routine Strain of tendon of 020 10:00 AM CDT right rotator cuff, initial encounter BASIC METABOLIC PANEL LAB Routine Strain of tendon of 07/01/2020 10:00 AM CDT (NA, K, CL, CO2, right rotator cuff, GLUCOSE, BUN, initial encounter CREATININE, CA) Name Type Priority Associated Diagnoses Order S [...] encounter - Primary documented in this encounter Additional Health Concerns Infection Onset Date Last Indicated Resolved Time COVID-19 Rule Out 07/01/2020 07/01/2020 documented as of this encounter Insurance Payer Benefit Plan / Subscriber ID Effective Dates Phone Addre ss Type Group MEDICARE MEDICARE PART [id number] 2006-[place] [phone] [address] Medicare A & B t 2 [id number] RICHARD KEATING [address] [facility] MEDICAID OF [id number] 2018-[place] [phone] [address] Medicaid [place] t 0 [id number] [place] [address] documented as of this encounter
--- OUTSIDE RECORDS SUMMARY | 2020-08-11 14:38 | XMS REPORT | Summary of Care ---
:1965 Author Organization [facility] Address [address] [place] [address] Care Team Providers Name Role Phone Missy Cabrera MD Primary Care Provider [phone] Nela Del Toro Neurologist Reason for Visit Reason Comments LAB WORK Auth/Cert Status Reason Specialty Diagnoses / Referred By Referred To Procedures Contact Contact Clinical Medical Diagnoses [id number] [facility] Lab Laboratory Procedures [address] [address] Encounter Details Date Type Department Care Team Description 07/01/2020 Laboratory Only [facility] [place] Joyce MD [address] [place] [phone] Pre-operative clearance (Primary Dx); Phlebotomy Only, [facility] Test Routine general medical examination at a health care facility Lab-[address] [address] Allergies No Known Allergiesdocumented as of [...] with long-term current use of insulin Insulin [place], Use 2 times 180 Each 3 05/24/2018 Active Disposable, (BD daily with ULTRAFINE III MINI insulin pens PEN) 31 gauge x 01/06" NdleIndications: Uncontrolled type 2 diabetes mellitus with diabetic polyneuropathy, with long-term current use of insulin spironolactone 25 mg Take 1 tablet by 90 tablet 3 04/30/2019 Active tabletIndications: mouth daily. Essential hypertension Ipwzlpqdsg-Srwfyzxrt-E Take 1 tablet by 90 tablet 3 04/30/2019 Active CTZ 10-320-25 mg mouth daily. TabIndications: Essential hypertension rosuvastatin 40 mg Take 1 tablet by 90 tablet 3 04/30/2019 Active tabletIndications: mouth daily. Essential hypertension icosapent ethyl Take 2 capsules 120 capsule 5 05/01/2019 Active (VASCEPA) 1 gram by mouth 2 (two) capsuleIndications: times daily. Mixed hyperlipidemia fluticasone propionate Use 1 [place] in 16 g 0 07/04/2019 Active 50 [...] Signs Not on filedocumented in this encounter Nursing Notes Dorothy Erickson - 07/01/2020 8:45 AM CDTcovid documented in this encounter Plan of Treatment Date Type Specialty Care Team Description 07/02/2020 Hospital Encounter Surgery Steve Oneal MD 208 [facility] So [address] [address] 07/02/2020 Anesthesia Event Surgery Lior Richter C [address] [phone] 07/02/2020 Surgery Surgery Steve Oneal OPEN SHOUL АЛЕКСАНДР ROTATOR MD Isiah CUFF REPAIR 208 [facility] So [address] [address] Health Maintenance Due Date Last Done Comments [...] Name Priority Date/Time Associated Diagnosis Comme nts COVID-19 (ID NOW Routine 07/01/2020 9:19 AM Pre-operative Res ults for this RAPID TESTING) CDT clearance procedure are in the results section. documented in this encounter Results COVID-19 (ID NOW RAPID TESTING) (07/01/2020 9:19 AM CDT) SARS-CoV-2 Rapid ID Not Detected Not Detected [facility] Specimen Swab - NASOPHARYNGEAL SWAB Narrative Performed At ID NOW COVID-19 Assay is an isothermal nucleic [facility] acid amplification test intended for the qualitative detection of nucleic acid from SARS-CoV-2 viral RNA in nasopharyngeal ([facility]) specimens. It is used under Emergency Use Authorization (EUA) by FDA. The limit of detection (LOD) of the assay is 125 Genome Equivalents/mL. A positive result is indicative of the presence of SARS-CoV-2 RNA. Clinical correlation with patient history and other diagnostic information is necessary to determine patient infection status. A negative (Not Detected) result does not preclude SARS-CoV-2 infection. In patients with clinical symptoms and other tests that are consistent with SARS-CoV-2 infection, negative results should be treated as presumptive negative and a new specimen should be tested with alternative PCR molecular test. Invalid: Please collect a new specimen for repeat patient testing if clinically indicated. Performing Organization Address City/State/Zipcode Phone Number [facility] CLIA: [id number] [place] [address] documented in this encounter Visit Diagnoses Diagnosis Pre-operative clearance - Primary Preoperative examination, unspecified Routine general medical examination at a health care facility documented in this encounter Insurance Payer Benefit Plan / Subscriber ID Effective Dates Phone Addre ss Type Group MEDICARE MEDICARE PART [id number] 2006-[place] [phone] [address] Medicare A & B t 2 [id number] [place] [address] [facility] MEDICAID OF [id number] 2018-[place] [phone] [address] Medicaid [place] t 0 [id number] [place] [address] documented as of this encounter
--- OUTSIDE RECORDS SUMMARY | 2020-08-11 14:38 | XMS REPORT | Summary of Care ---
:1965 Author Organization [facility] - Health Address [address] [place], [place] [address] Care Team Providers Name Role Phone Missy Cabrera MD Primary Care Provider [phone] Nela Del Toro Neurologist Encounter Details Date Type Department Care Team Description 07/02/2020 Orders Only [facility] Doctor Unassigned, No [address] [facility] [place] [place] [address] [address] [place] [address] Allergies No Known Allergiesdocumented as of this encounter (statuses as of 07/02/2020) Medications Medication Sig Dispensed Refills Start Date End Date Status blood sugar Use as directed 300 Strip 1 02/13/2018 S uspended diagnostic (ASCENSIA TID, DX:E11.9 MICROFILL) stripIndications: Uncontrolled type 2 diabetes mellitus with diabetic polyneuropathy, with long-term current use of insulin Additional Information aspirin 81 mg EC tablet Take 1 tablet by mouth daily. 0 02/14/2018 Suspended Additional Information metformin ER 500 mg 24 hr Take 1 tablet by 270 tablet 3 2017 Suspended tabletIndications: mouth 3 (three) Uncontrolled type 2 diabetes times daily with mellitus with diabetic meals. polyneuropathy, with long-term current use of insulin Additional Information Insulin Drums, Disposable, Use 2 times daily 180 Each 3 10/2017 Suspended (BD ULTRAFINE III MINI PEN) 31 with insulin pens gauge x 3/16" NdleIndications: Uncontrolled type 2 diabetes mellitus with diabetic polyneuropathy, with long-term current use of insulin Additional Information spironolactone 25 mg Take 1 tablet by 90 tablet 3 04/30/2019 Suspended tabletIndications: Essential mouth daily. hypertension Additional Information Jvinduxsrg-Zninrbyyv-OWQD 10-320-25 Take 1 tablet 90 tablet 3 04/30/2019 Suspended mg TabIndications: Essential by mouth daily. hypertension Additional Information rosuvastatin 40 mg Take 1 tablet by 90 tablet 3 04/30/2019 Suspended tabletIndications: Essential mouth daily. hypertension Additional Information icosapent ethyl (VASCEPA) 1 Take 2 capsules by 120 capsule 5 0 05/01/2019 Suspended gram capsuleIndications: Mixed mouth 2 (two) hyperlipidemia times daily. Additional Information fluticasone propionate 50 Use 1 [place] in each 16 g 0 06/24 Suspended mcg/actuation nasal nostril daily. sprayIndications: Acute non-recurrent frontal sinusitis, Congestion of nasal sinus Additional Information levothyroxine 137 mcg Take 1 tablet by 90 tablet 3 08/13/2019 Suspended tabletIndications: Primary mouth every morning. hypothyroidism Additional Information Insulin Lisp & Lisp Prot, Hum, Inject 52 units 90 mL 3 Suspended (HUMALOG MIX 75-25 KWIKPEN) 100 before breakfast and unit/mL (75-25) 48 units before injectionIndications: Type 2 dinner diabetes mellitus with complication, with long-term current use of insulin Additional Information naproxen 500 mg Take 1 tablet by 60 tablet 3 08/13/2019 Suspended tabletIndications: mouth 2 (two) times Osteoarthritis involving daily with meals. multiple joints on both sides of body, Chronic pain of both shoulders Additional Information SERTRALINE 100 mg TAKE 2 TABLETS BY 180 tablet 3 11/08/2019 Suspended tabletIndications: Mood MOUTH EVERY MORNING changes, Other depression, Insomnia, unspecified type Additional Information JANUVIA 25 mg TAKE 1 TABLET BY 30 tablet 3 02/21/2020 Suspended tabletIndications: Type 2 MOUTH DAILY diabetes mellitus with complication, with long-term current use of insulin Additional Information dulaglutide (TRULICITY) 1.5 inject 1.5 mg under the 6 mL 0 04/25/2020 Suspended mg/0.5 mL PnIjIndications: skin weekly. Uncontrolled type 2 diabetes mellitus with diabetic polyneuropathy, with long-term current use of insulin Additional Information documented as of this encounter (statuses as of 07/02/2020) Active Problems Problem Noted Date Acute non-recurrent frontal sinusitis 07/04/2019 Congestion of nasal sinus 07/04/2019 Cough 07/04/2019 Sinus headache 07/04/2019 Obesity (BMI 30-39.9) 12/06/2018 Osteopenia of lumbar spine 05/24/2018 Arthritis 05/04/2018 Type 2 diabetes mellitus with microalbuminuria, with l yamsany-term current use 10/04/2016 of insulin Dyslipidemia 10/04/2016 [...] as of this encounter (statuses as of 07/02/2020) Immunizations Name Administration Dates Next Due Influenza [...] been in contact with No / Unsure 07/02/2020 7:23 AM CDT someone who was confirmed or suspected to have Coronavirus / COVID-19? documented as of this encounter Last Filed Vital Signs Not on filedocumented in this encounter Plan of Treatment Health Maintenance Due Date Last Done Comments [...] 01/03/2019, 02/08/2018 (Previously completed), 12/25/2014 (Previously completed) LDL-C 04/30/2020 04/30/2019, 10/31/2018, 05/24/2018, Additional history exists URINE MICROALBUMIN 04/30/2020 04/30/2019, 02/13/2018, 04/20/2017, Additional history exists Breast Cancer Screening 05/02/2020 05/02/2019, 03/30/2018, (MAMMOGRAM) 03/18/2017, Additional history exists INFLUENZA VACCINE (#1) 2020 07/02/2019, 09/20/2018, 08/11/2017, Additional history exists CREATININE (SERUM) 07/01/2021 07/01/2020, 04/30/2019, 12/06/2018, Additional history exists Depression Screening 07/02/2021 07/02/2020, 08/13/2019 DTaP,Tdap,and Td Vaccines 06/26/2029 06/26/2019 (2 [...] Name Priority Date/Time Associated Diagnosis Comme nts DSU PRE-OP Routine 07/02/2020 12:01 AM CDT documented in this encounter Results Not on filedocumented in this encounter Insurance Payer Benefit Plan / Subscriber ID Effective Dates Phone Addre ss Type Group MEDICARE MEDICARE PART [id number] 2006-[place] [phone] [address] Medicare A & B t 2 [id number] RICH[place] KEATING [address] [facility] MEDICAID OF [id number] 2018-[facility] [phone] [address] Medicaid [place] t 0 [id number] [place] [address] documented as of this encounter
--- OUTSIDE RECORDS SUMMARY | 2020-08-11 14:38 | XMS REPORT | Summary of Care ---
:1965 Author Organization [facility] - [facility] Address [address] [place] [id number] Care Team Providers Name Role Phone Missy Cabrera MD Primary Care Provider [phone] Nela Del Toro Neurologist Reason for Visit Auth/Cert Status Reason Specialty Diagnoses / Procedures Referred By C ontact Referred To Contact Surgery Diagnoses Strain of muscle(s) and tendon(s) of the rotator cuff of right shoulder, initial encounter Strain of muscle(s) and tendon(s) of the rotator cuff of right shoulder, initial encounter Adc Pre/Pacu/Post Procedures [place] REPAIR ROTATOR CUFF,CHRONIC [place] SHLDR ARTHROSCOP,PART DEBRIDE [place] PARTIAL REMOVAL, CLAVICLE OPEN SHOULDER ROTATOR CUFF REPAIR SHOULDER ARTHROSCOPY DISTAL CLAVICAL RESECTION [address] [place], [place] [address] Phone: Fax: Encounter Details Date Type Department Care Team Description 07/02/2020 Hospital Encounter [facility] Nabil Joyce MD [address] [place] [address] [address] [place] [address] [address] [place], [place] [id number] Allergies No Known Allergiesdocumented as of this [...] with long-term current use of insulin Insulin Beverly, Use 2 times 180 Each 3 05/24/2018 Active Disposable, (BD daily with ULTRAFINE III MINI insulin pens PEN) 31 gauge x 01/06" NdleIndications: Uncontrolled type 2 diabetes mellitus with diabetic polyneuropathy, with long-term current use of insulin spironolactone 25 mg Take 1 tablet by 90 tablet 3 04/30/2019 Active tabletIndications: mouth daily. Essential hypertension Gzzvlswcjm-Ymhaeoutz-D Take 1 tablet by 90 tablet 3 04/30/2019 Active CTZ 10-320-25 mg mouth daily. TabIndications: Essential hypertension rosuvastatin 40 mg Take 1 tablet by 90 tablet 3 04/30/2019 Active tabletIndications: mouth daily. Essential hypertension icosapent ethyl Take 2 capsules 120 capsule 5 05/01/2019 Active (VASCEPA) 1 gram by mouth 2 (two) capsuleIndications: times daily. Mixed hyperlipidemia fluticasone propionate Use 1 [place] in 16 g 0 07/04/2019 Active 50 [...] of this encounter Last Filed Vital Signs Vital Sign Reading Time Taken Comments Blood Pressure 145/60 07/02/2020 10:10 AM CDT Pulse 82 07/02/2020 10:10 AM CDT Temperature 36.4 C (97.5 F) 07/02/2020 9:38 AM CDT Respiratory Rate 18 07/02/2020 10:05 AM CDT Oxygen Saturation 95% 07/02/2020 10:10 AM CDT Inhaled Oxygen Concentration - - Weight 75.8 kg (167 lb) 06/27/2020 2:15 PM CDT Height 152.4 cm (5') 06/27/2020 2:15 PM CDT Body Mass Index 32.61 06/27/2020 2:15 PM CDT documented in this encounter Discharge Instructions InstructionsArielle Klein RN - 07/02/2020 Patient Discharge Instructions Discharge date: 07/02/2020 Procedure(s): Procedure(s): OPEN SHOULDER ROTATOR CUFF REPAIR SHOULDER ARTHROSCOPY DISTAL CLAVICAL RESECTION Discharge Orders Regular Diet; Texture: Regular. Texture Regular. Diabetic: NIDDM Discharge Condition - Discharge Condition: GOOD Discharge Activity Discharge Activity: Ambulate VTE Propylaxis- Was ordered during hospitalization Follow instructions as indicated below: 1. The medication that was used will be acting in your system for the next 24 hours, so you might feel a little drowsy, with impaired judgment and or motor function. This feeling should go wear off. Because the medication is still in your system for the next 24 hours you SHOULD NOT: Drive a car, operate machinery or power tool. Drink any alcohol beverages (including beer or wine). Make any important decisions or sign any legal documents. 2. You should rest the remainder of the day and not engage in any physical activity. Move slowly today. After lying down, sit on the edge of the bed for a moment before standing. YOU ARE RESPONSIBLEFOR HAVING SOMEONE AT HOME WITH YOU DURING THE AFTERNOON AND NIGHT IMMEDIATELY FOLLOWING YOUR SURGERY. Patient should cough and deep breathe every 2-4 hours while awake to avoid respiratory complications. 4. Lifting:No lifting with right Arm. Keep arm in immobilizer/sling. Ok to move fingers 5. Weight: In general, sudden weight gains or losses should be reported to your provider. Cardiac patients should weigh daily and notify their provider for a weight gain of 3 pounds per day or 5 pounds per week. 6. Tobacco Avoidance: Follow recommendations below 7. Because the medications used could procedure some residual nausea and vomiting after you go home,you should eat lightly today, starting with clear liquids (broth, soft drinks, apple juice, jello) and toast or crackers, progressing to bland solid foods and then to your normal diet as tolerated, unle ss otherwise stated by your surgeon. If you get sick, wait a couple of hours and then begin to eat. After 24 hours the nausea should be gone. 8. You may experience some pain and your physician will advise you on what to take for discomfort. This should be taken as directed. If the pain is not relieved, contact your physician. You may alsohave a sore throat from the airway that was in place. You may uses lozenges, throat spray (such as C hloraseptic), or warm salt water gargles for symptomatic relief. 9. If you feel warm, take your temperature. If it is 101 degrees or above call your physician. 10. If you are unable to urinate within five hours after your procedure, call your physician. 11. The type of surgery performed will determine how much bleeding (if any) to expect. Normally, some spotting might occur. If your dressing pad becomes saturated, notify your physician. Elevate surgical site, if applicable, to reduced swelling and pain. 12. Wound/dressing care: Keep clean dry and intact Tips on preventing a surgical site infection.. Dont smoke. It is best to quit at least 30 days before surgery, but quitting after surgery is also helpful. If you are diabetic, keep your blood sugar well controlled. WASH YOUR HANDS. Keep your wound clean and remember to wash your hands before and after contact with the area. All health care workers should also wash their hands or use an alcohol based hand rub prior to examining you. If antibiotics are prescribed, take them as directed. Finish the entire course of antibiotics. Call your doctor if you have signs of infection: ? Increased tenderness at the surgical site ? Red streaks or increased redness of the area ? Bad-smelling discharge from the incision ? Fever of 101F or higher ? General tired feeling that doesnt improve 13. Other discharge instructions: {DC IP DISCHARGE INSTRUCTIONS OTHER:66049} 14. Special Instructions: Call for follow up with Dr. Oneal this Tuesday07/04/2020 Take Home Medications These are medications ordered for you by your healthcare provider. Do not take any other medications or supplements unless advised by your healthcare provider. Current Discharge Medication List CONTINUE these medications which have NOT CHANGED Details dulaglutide (TRULICITY) 1.5 mg/0.5 mL PnIj inject 1.5 mg under the skin weekly. Qty: 6 mL, Refills: 0 Associated Diagnoses: Uncontrolled type 2 diabetes mellitus with diabetic polyneuropathy, with long-term current use of insulin JANUVIA 25 mg tablet TAKE 1 TABLET BY MOUTH DAILY Qty: 30 tablet, Refills: 3 Associated Diagnoses: Type 2 diabetes mellitus with complication, with long- term current use of insulin SERTRALINE 100 mg tablet TAKE 2 TABLETS BY MOUTH EVERY MORNING Qty: 180 tablet, Refills: 3 Associated Diagnoses: Mood changes; Other depression; Insomnia, unspecified type Insulin Lisp & Lisp Prot, Hum, (HUMALOG MIX 75-25 KWIKPEN) 100 unit/mL (75- 25) injection Inject 52 units before breakfast and 48 units before dinner Qty: 90 mL, Refills: 3 Associated Diagnoses: Type 2 diabetes mellitus with complication, with long- term current use of insulin levothyroxine 137 mcg tablet Take 1 tablet by mouth every morning. Qty: 90 tablet, Refills: 3 Associated Diagnoses: Primary hypothyroidism fluticasone propionate 50 mcg/actuation nasal spray Use 1 [place] in each nostril daily. Qty: 16 g, Refills: 0 Associated Diagnoses: Acute non-recurrent frontal sinusitis; Congestion of nasal sinus rosuvastatin 40 mg tablet Take 1 tablet by mouth daily. Qty: 90 tablet, Refills: 3 Associated Diagnoses: Essential hypertension Insulin Beverly, Disposable, (BD ULTRAFINE III MINI PEN) 31 gauge x 3/16" Ndle Use 2 times daily with insulin pens Qty: 180 Each, Refills: 3 Associated Diagnoses: Uncontrolled type 2 diabetes mellitus with diabetic polyneuropathy, with long-term current use of insulin blood sugar diagnostic (ASCENSIA MICROFILL) strip Use as directed TID, DX:E11.9 Qty: 300 Strip, Refills: 1 Associated Diagnoses: Uncontrolled type 2 diabetes mellitus with diabetic polyneuropathy, with long-term current use of insulin naproxen 500 mg tablet Take 1 tablet by mouth 2 (two) times daily with meals. Qty: 60 tablet, Refills: 3 Associated Diagnoses: Osteoarthritis involving multiple joints on both sides of body; Chronic pain of both shoulders icosapent ethyl (VASCEPA) 1 gram capsule Take 2 capsules by mouth 2 (two) times daily. Qty: 120 capsule, Refills: 5 Associated Diagnoses: Mixed hyperlipidemia Rcvwxtqsbo-Adghsmrsx-NGMR 10-320-25 mg Tab Take 1 tablet by mouth daily. Qty: 90 tablet, Refills: 3 Associated Diagnoses: Essential hypertension spironolactone 25 mg tablet Take 1 tablet by mouth daily. Qty: 90 tablet, Refills: 3 Associated Diagnoses: Essential hypertension metformin ER 500 mg 24 hr tablet Take 1 tablet by mouth 3 (three) times daily with meals. Qty: 270 tablet, Refills: 3 Associated Diagnoses: Uncontrolled type 2 diabetes mellitus with diabetic polyneuropathy, with long-term current use of insulin aspirin 81 mg EC tablet Take 1 tablet by mouth daily. Follow-up appointments: Your follow up appointment with your surgeon has been made. Appointment Date: , Appointment Time . For questions regarding follow-up instructions call the [facility] Hotline at or If you experience any of the following symptoms , please follow up with . For worsening symptoms/changing condition/problems or questions: Non-emergency/urgent: Call the [facility] Hotline at or or Emergency: Go to the closest emergency room or call 201 Translated by Date Time If you receive the patient satisfaction survey by mail please complete and return and let us know how we are doing. TOBACCO AVOIDANCE Exposure to tobacco either from smoking or from second hand (environmental) smoke or smokeless tobacco (snuff) is damaging to your health. This information is to encourage everyone to avoid tobacco exposure. It is recommended that you: ? If you smoke or use smokeless tobacco, we encourage you to quit. ? If you have already quit smoking, continue your good work! ? If you do not smoke or use smokeless tobacco, do not start. ? Avoid secondhand smoke. Additional Resources You may want to contact these organizations for further information on smoking and how to quit. [employer] Lung Association, http://www.lungusa.org/stop-smoking/ [employer] Cancer Society, http://www.cancer.org/Healthy/StayAwayfromTobacco/index [place] Heart Association, http://www.heart.org/HEARTORG/GettingHealthy/QuitSmoking/Quit-Smoking_[facility] _001085_SubHomePage.jsp documented in this encounter Miscellaneous Notes Nursing Note - Hortencia Mayes V RN - 07/02/2020 7:27 AM CDTChlorexadine wipes Given to patient, she wiped right shoulder area. documented in this encounter Plan of Treatment Health Maintenance Due Date Last Done Comments COLON CANCER SCREENING ANNUAL 2014 FIT/FOBT COLON CANCER SCREENING FIT DNA 2014 EVERY 3 YEARS COLON CANCER SCREENING 2014 SIGMOIDOSCOPY EVERY 5 YEARS FOOT EXAM 05/24/2019 05/24/2018, 05/24/2018, 02/13/2018, Additional history exists Zoster Recombinant Vaccine 08/21/2019 06/26/2019 (SHINGRIX) (2 of 2) HgA1C 10/31/2019 04/30/2019, 05/24/2018, 02/13/2018, Additional history exists EYE EXAM 01/04/2020 01/03/2019, 02/08/2018 (Previously completed), 12/25/2014 (Previously completed) LDL-C 04/30/2020 04/30/2019, 10/31/2018, 05/24/2018, Additional history exists PNEUMOCOCCAL 0-64 YEARS COMBINED 04/30/2020 04/30/2019 SERIES (2 of 3 - PCV13) URINE MICROALBUMIN 04/30/2020 04/30/2019, 02/13/2018, 04/20/2017, Additional history exists Breast Cancer Screening 05/02/2020 05/02/2019, 03/30/2018, (MAMMOGRAM) 03/18/2017, Additional history exists INFLUENZA VACCINE (#1) 2020 07/02/2019, 09/20/2018, 08/11/2017, Additional history exists CREATININE (SERUM) 07/01/2021 07/01/2020, 04/30/2019, 12/06/2018, Additional history exists Depression Screening 07/02/2021 07/02/2020, 08/13/2019 DTaP,Tdap,and Td Vaccines (2 - 06/26/2029 06/26/2019 Td) COLONOSCOPY 08/15/2029 08/15/2019, 12/06/2018, 06/21/2013 (Previously completed) Colorectal Cancer Screening 08/15/2029 PAP SMEAR Discontinued 07/02/2011 (Previously completed) HEPATITIS C (HCV) SCREEN Completed 03/30/2017, 07/13/2016 documented as of this encounter Implants Implanted Type Area Foot Orthopedist Device Shelf Model / Identifier Expiration Serial / Date Lot [employer] [place] ANCHOR Right: Biomet 04/18/2023 [id number] / Implanted: Qty: 1 on 07/02/2020 by Steve Vásquez MD at [facility] Shoulder [id number] / [id number] [employer] [place] ANCHOR Right: Biomet 08/21/2023 [id number] / Implanted: Qty: 1 on 07/02/2020 by Steve Vásquez MD at [facility] Shoulder [id number] / [id number] documented as of this encounter Procedures Procedure Name Priority Date/Time Associated Diagnosis Comme nts POCT GLUCOSE(AGE Routine 07/02/2020 7:21 AM Resu lts for this >30DAYS) CDT procedure are i n the results section. documented in this encounter Results POCT Glucose (07/02/2020 7:21 AM CDT) Pathologist Sig nature POCT Glu (age>30days) 267 (A) 70 - 110 mg/dL Specimen Blood - CAPILLARY documented in this encounter Visit Diagnoses Diagnosis Uncontrolled type 2 diabetes mellitus wi th hypoglycemia, unspecified hypoglycemia coma status - Primary Mixed hyperlipidemia Neuropathy Mononeuritis of unspecified site Other depression Anger Other signs and symptoms involving emoti onal state Acquired hypothyroidism Unspecified hypothyroidism Anxiety Anxiety state, unspecified Lupus Systemic lupus erythematosus Insomnia, unspecified type Medically noncompliant Personal history of noncompliance with m edical treatment, presenting hazards to health Essential hypertension Unspecified essential hypertension Multiple thyroid nodules Nontoxic multinodular goiter Primary hypothyroidism Unspecified hypothyroidism Vitamin D deficiency Unspecified vitamin D deficiency Anxiety and depression Dysthymic disorder Polyarthralgia Pain in joint, multiple sites History of lupus Personal history of other endocrine, met abolic, and immunity disorders History of fibromyalgia Personal history of other musculoskeleta l disorders Dyslipidemia Other and unspecified hyperlipidemia Arthritis Arthropathy, unspecified, site unspecifi ed Osteopenia of lumbar spine Obesity (BMI 30-39.9) Obesity, unspecified Acute non-recurrent frontal sinusitis Congestion of nasal sinus Other diseases of nasal cavity and sinus es Cough Sinus headache Headache documented in this encounter Administered Medications Medication Order MAR Action Action Date Dose Rate Site FENTanyl PF (SUBLIMAZE (PF)) injection 2 5 mcg 25 mcg, Slow IV Push, Q5MIN PRN, 4 doses, Starting Tue07/02/20 at 0946, Until Discontinued, Routine, Pain (scale 4-6), PACU HYDROmorphone (DILAUDID) injection 0.2 m g 0.2 mg, Slow IV Push, Q5MIN PRN, 10 doses, Starting We d 07/02/20 at 0946, Until Discontinued, Routine, Pain (scale 7-10) , PACU, Use approved by (Faculty): PACU USE -ANESTHESIA SERVICE-HYDROMORPHONE INJECTIONS lactated Ringers irrigation Given 07/02/2020 7:42 AM CDT 3,000 mL Right Shoulder solution PRN, Starting Tue07/02/20 at 0742, Until Discontinued, Routine, Intra-op ondansetron (ZOFRAN (PF)) injection 4 mg 4 mg, Slow IV Push, PRN, 1 dose, Startin g 07/02/20 at 0946, Until Discontinued, Routine, Nausea and Vomiting (N/V), PACU Medication Order MAR Action Action Date Dose Rate Site lactated ringers IV infusion New Bag 07/02/2020 7:37 AM CDT 1,000 mL 20 mL/hr 1,000 mL at 20 mL/hr, 1,000 mL, IV Infusion, ONCE, 1 dose, Tue07/02/20 at 0700, Routine, DSU Pre-op documented in this encounter Insurance Payer Benefit Plan / Subscriber ID Effective Dates Phone Addre ss Type Group MEDICARE MEDICARE PART [id number] 2006-Libby [phone] Medicare A & B t 2 [id number] [place] [id number] [facility] MEDICAID OF [id number] 2018-Libby [phone] Medicaid [place] t [address] [id number] [place] [address] documented as of this encounter
[2020-08-11] MEDS ORDERED: ACETAMINOPHEN 500 MG TAB ONE (15:02)
[2020-08-11 16:58] LABS: Absolute Lymphocytes (CBC) 1.2 K/uL (0.7-4.9); Basophils % 0.8 % (0-1.3); Hematocrit 46.9 % (36.0-45.0); Lymphocytes % 9.8 % (15.3-44.8); MPV 10.9 fL (7.6-11.3); RBC Red Blood Cell Count 4.97 M/uL (3.86-4.86)
[2020-08-11 17:00] LABS: Protime INR 1.29
[2020-08-11] MEDS ORDERED: IBUPROFEN 200 MG TAB PO ONE (17:08)
[2020-08-11] MEDS ORDERED: IBUPROFEN 400 MG TAB ONE (17:09)
--- NOTE | 2020-08-11 17:18 | RAD REPORT ---
EXAM DESCRIPTION: RAD - Chest Single View - 08/11/2020 4:58 pm CLINICAL HISTORY: COUGH COMPARISON: Two view chest November 2019 TECHNIQUE: AP portable chest image was obtained 08/11/2020 4:58 pm . FINDINGS: Lung volumes are low accentuating baseline interstitial pattern. No peripheral mass or con solidation. Heart size is normal range with vasculature within normal limits for low lung volume stud y. No measurable pleural effusion and no pneumothorax. No acute bony abnormality seen. No acute aorti c findings suspected. IMPRESSION: Chronic interstitial pattern similar to comparison. No acute findings seen.
[2020-08-11 17:27] LABS: ALT/SGPT 26 U/L (12-78); AST/SGOT 20 U/L (15-37); Albumin 3.4 g/dL (3.4-5.0); Alkaline Phosphatase 137 U/L (45-117); Amylase 12 U/L (25-115); BUN Blood Urea Nitrogen 11 mg/dL (7-18); Bicarbonate 22 mmol/L (21-32); Bilirubin Direct 0.2 mg/dL (0-0.2); Bilirubin Total 0.7 mg/dL (0.2-1.0); CKMB Creatine Kinase MB < 1.0 ng/mL (0.3-3.6); Creatine Phosphokinase 36 U/L (26-192); Glucose Level 322 mg/dL (74-106); Lipase 41 U/L (73-393); Potassium 3.8 mmol/L (3.5-5.1); Protein, Total 8.4 g/dL (6.4-8.2); Sodium Level 134 mmol/L (136-145); Troponin (Emerg Dept Use Only) < 0.02 ng/mL (0.0-0.045)
[2020-08-11 17:30] LABS: Urine Blood 2+ (NEG); Urine Glucose 2+ (NEG); Urine Protein 3+ (NEG); Urine Specific Gravity 1.025 (1.005-1.030)
[2020-08-11 17:37] LABS: Urine Bacteria 20-50 /HPF (<20); Urine Culture Reflex Order REFLEXED; Urine Mucus 1+ /HPF (NONE SEEN); Urine RBC 20-50 /HPF (NONE SEEN)
[2020-08-11] MEDS ORDERED: NA CHLORIDE 0.9% 1,000 ML ONE (18:35)
--- NOTE | 2020-08-11 18:55 | ER ---
Nurse's Notes [facility] Name: Maci Martines Age: 55 yrs Sex: Female : 1965 Arrival Date: 08/11/2020 Time: 14:37 Bed 16 Private MD: Diagnosis: Urinary tract infection, site not specified;Viral infection, unspecified Presentation: 08/11 14:42 Chief complaint: Patient states: n/v, fever Tmax 101.8, decreased appetite, body aches, sv kelly ear pain, headache, and sore throat x 4 days. Motrin taken 3 hours ago. Excedrin taken about 0800 today. Coronavirus screen: Client denies travel out of the [place] in the last 14 days. fever, headache, muscle pain, nausea, vomiting. Client presents with at least one sign or symptom that may indicate coronavirus-19. Standard/surgical mask placed on the client. Provider contacted for isolation considerations. Ebola Screen: No symptoms or risks identified at this time. Risk Assessment: Do you want to hurt yourself or someone else? Patient reports no desire to harm self or others. Onset of symptoms was August 07, 2020. 14:42 Method Of Arrival: Ambulatory sv 14:42 Acuity: TAYA 3 sv 14:46 Initial Sepsis Screen: Does the patient meet any 2 criteria? HR > 90 bpm. Yes Does the sv patient have a suspected source of infection? Yes: Other: fever. Triage Assessment: 14:42 General: Appears in no apparent distress. uncomfortable, well developed, Behavior is sv calm, cooperative, appropriate for age. General: Reports fever for 2-3 days. Neuro: Level of Consciousness is awake, alert, obeys commands, Oriented to person, place, time, situation, Gait is steady. Neuro: Reports headache body aches. Respiratory: Respiratory effort is even, unlabored. GI: Reports nausea, vomiting. Historical: - Allergies: 14:44 No Known Drug Allergies; sv - PMHx: 14:44 Anxiety; Diabetes - IDDM; Fibromyalgia; Hypertension; Migraines; ulcerative colitis; sv - PSHx: 14:44 Hysterectomy; sv - Immunization history:: Flu vaccine is not up to date. - Social history:: Smoking status: Patient denies any tobacco usage or history of. Screenin:00 Abuse screen: Denies threats or abuse. Nutritional screening: No deficits noted. ll1 Tuberculosis screening: No symptoms or risk factors identified. Fall Risk IV access (20 points). Gait- Weak (10 pts.). Total Contreras Fall Scale indicates Low Risk Score (25-44 pts). Fall prevention measures have been instituted. Side Rails Up X 2 Placed close to Nursing Station Frequent Obs/Assesments occuring Family Present and informed to notify staff if they need to leave bedside As available Patient and Family Educated on Fall Prevention Program and strategies. Assessment: 16:40 General: Appears ill, Behavior is calm, cooperative. Pain: Complains of pain in head ll1 Pain currently is 7 out of 10 on a pain scale. Quality of pain is described as aching, Is continuous. Neuro: Level of Consciousness is awake, alert, obeys commands, Oriented to person, place, time, situation, Appropriate for age Manager Compensation are equal bilaterally Moves all extremities. Full function Speech is normal, Facial symmetry appears normal, Pupils are PERRLA, Reports headache. Cardiovascular: No deficits noted. Respiratory: Airway is patent Trachea midline Respiratory effort is even, unlabored, Respiratory pattern is regular, symmetrical, Breath sounds are clear bilaterally. Denies shortness of breath. GI: Reports decreased appetite. GI: Abdomen is flat, Bowel sounds present X 4 quads. Abd is soft and non tender X 4 quads. Reports nausea, vomiting. : No deficits noted. EENT: Ear canal clear on right ear and left ear Reports bilateral ear pain. EENT: Reports pain when swallowing decreased taste. Derm: No deficits noted. Musculoskeletal: Circulation, motion, and sensation intact. Capillary refill < 3 seconds, Reports body aches all over. 17:40 Reassessment: Patient and/or family updated on plan of care and expected duration. Pain ll1 level reassessed. Patient is alert, oriented x 3, equal unlabored respirations, skin warm/dry/pink. 18:40 Reassessment: No changes from previously documented assessment. Patient and/or family ll1 updated on plan of care and expected duration. Pain level reassessed. 19:12 Reassessment: Patient appears in no apparent distress at this time. Patient and/or jb4 family updated on plan of care and expected duration. Pain level reassessed. Patient is alert, oriented x 3, equal unlabored respirations, skin warm/dry/pink. 20:17 Reassessment: a bloom pillow case and pillow were taken to the screener for pt to pick sg up, pt reports she is on her way to the ED at this time. Vital Signs: 14:44 BP 152 / 84; Pulse 120; Resp 20; Temp 101.2(TE); Pulse Ox 99% ; Weight 74.84 kg; Height sv 5 ft. 0 in. (152.40 cm); 17:10 Temp 98.8; ll1 17:30 BP 157 / 90; Pulse 93; Resp 18; ll1 17:59 BP 149 / 86; Pulse 92; Resp 18; ll1 18:44 BP 147 / 70; Pulse 87; Resp 18; Pulse Ox 95% ; ll1 18:44 ll1 14:44 Body Mass Index 32.22 (74.84 kg, 152.40 cm) sv 18:44 Normal sinus on monitor ll1 ED Course: 14:37 Patient arrived in ED. mr 14:42 Arm band placed on. sv 14:44 Triage completed. sv 15:38 Daniel Guy MD is Attending Physician. kdr 15:46 Marley Aguilar, KEESHA is Primary Nurse. ll1 16:40 Inserted saline lock: 22 gauge in left antecubital area, using aseptic technique. Blood ll1 collected. 17:25 Urine Dipstick--Ancillary (enter results) Sent. sv 17:26 Troponin (emerg Dept Use Only) Sent. sv 17:26 Ptt, Activated Sent. sv 17:26 Protime (+inr) Sent. sv 17:26 Procalcitonin Sent. sv 17:26 Lipase Sent. sv 17:26 LFT's Sent. sv 17:26 Lactate Sent. sv 17:26 CPK Sent. sv 17:26 Ckmb Sent. sv 17:26 CBC with Diff Sent. sv 17:26 Basic Metabolic Panel Sent. sv 17:26 Amylase, Serum Sent. sv 17:26 Chest Single View XRAY Sent. sv 18:00 Patient has correct armband on for positive identification. Bed in low position. Call ll1 light in reach. Side rails up X 1. fiberglass roller on. Pulse ox on. NIBP on. 19:12 No provider procedures requiring assistance completed. IV discontinued, intact, jb4 bleeding controlled, No redness/swelling at site. Pressure dressing applied. Administered Medications: 14:50 Drug: Tylenol 1000 mg Route: PO; sv 17:14 Follow up: Response: No adverse reaction; Temperature is decreased; RASS: Alert and ll1 Calm (0) 17:15 Drug: Ibuprofen 600 mg Route: PO; ll1 18:29 Follow up: Response: No adverse reaction; RASS: Alert and Calm (0) ll1 18:28 Drug: NS 0.9% 1000 ml Route: IV; Rate: 1 bolus; Site: left antecubital; ll1 19:12 Follow up: Response: No adverse reaction; IV Status: Order to discontinue infusion; IV jb4 Intake: 700ml 19:06 Drug: Bactrim (160 mg-800 mg (DS) 1 tablet Route: PO; jb4 19:06 Follow up: Response: Medication administered at discharge. jb4 Intake: 19:12 IV: 700ml; Total: 700ml. jb4 Outcome: 18:54 Discharge ordered by . kdr 19:12 Discharged to home ambulatory, with family. jb4 19:12 Condition: stable 19:12 Discharge instructions given to patient, family, Instructed on discharge instructions, follow up and referral plans. medication usage, Demonstrated understanding of instructions, follow-up care, medications, Prescriptions given X 1. 19:14 Patient left the ED. jb4 Addendum: 08/14/2020 07:27 Addendum: Culture Results: Positive urine culture. No further action required. Bacteria a a5 sensitive to prescribed antibiotic. Signatures: Renae Bowden RN RN sv Gay, Steven, RN RN sg Rittger, Kevin, MD MD kdr Rivera, Mary mr ToledoYesenia stoddard RN RN aa5 Byron Richey RN RN jb4 Marley Aguilar RN RN ll1 Corrections: (The following items were deleted from the chart) 08/11 14:47 14:42 Chief complaint: Patient states: n/v, fever Tmax 101.8, decreased appetite, kelly sv ear pain, headache, and sore throat x 4 days. sv 14:47 14:44 Pulse 120bpm; Resp 20bpm; Pulse Ox 99%; Temp 101.2F Temporal; 74.84 kg; Height 5 sv ft. 0 in.; BMI: 32.2; sv 14:50 14:42 Coronavirus screen: Client denies travel out of the [place] in the last 14 days. sv fever, headache, nausea, vomiting. Client presents with at least one sign or symptom that may indicate coronavirus-19. Standard/surgical mask placed on the client. Provider contacted for isolation considerations. sv 17:58 17:51 General: Appears ill, Behavior is calm, cooperative, ll1 ll1 17:58 17:51 Pain: Complains of pain in head Pain currently is 7 out of 10 on a pain scale. ll1 Quality of pain is described as aching, Is continuous, ll1 17:58 17:51 Neuro: Level of Consciousness is awake, alert, obeys commands, Oriented to ll1 person, place, time, situation, Appropriate for age Manager Compensation are equal bilaterally Moves all extremities. Full function Speech is normal, Facial symmetry appears normal, Pupils are PERRLA, Reports headache ll1 17:58 17:51 Cardiovascular: No deficits noted. ll1 ll1 17:58 17:51 Respiratory: Airway is patent Trachea midline Respiratory effort is even, ll1 unlabored, Respiratory pattern is regular, symmetrical, Breath sounds are clear bilaterally. Denies shortness of breath ll1 17:58 17:51 GI: Abdomen is flat, Bowel sounds present X 4 quads. Abd is soft and non tender X ll1 4 quads. Reports nausea, vomiting, ll1 17:58 17:51 : No deficits noted. ll1 ll1 17:58 17:51 EENT: Ear canal clear on right ear and left ear Reports bilateral ear pain. ll1 ll1 17:58 17:51 Derm: No deficits noted. ll1 ll1 17:58 17:51 Musculoskeletal: Circulation, motion, and sensation intact. Capillary refill < 3 ll1 seconds, Reports body aches all over ll1 17:58 17:51 EENT: Reports pain when swallowing decreased taste. ll1 ll1 17:58 17:51 GI: Reports decreased appetite. ll1 ll1
--- NOTE | 2020-08-11 18:55 | EDPHYS ---
Physician Documentation [facility] Name: Maci Martines Age: 55 yrs Sex: Female : 1965 Arrival Date: 08/11/2020 Time: 14:37 Bed 16 Private MD: ED Physician Daniel Guy HPI: 08/11 18:29 This 55 yrs old Female presents to ER via Ambulatory with complaints of kdr Nausea/Vomiting, Headache, Fever, Sore Throat. 18:29 The patient presents to the emergency department with nausea, that is mild, vomiting, kdr that is intermittent, diarrhea, that is intermittent. Onset: The symptoms/episode began/occurred gradually, 4 day(s) ago. Possible causes: unknown, COVID. The symptoms are aggravated by nothing. The symptoms are alleviated by nothing. Associated signs and symptoms: Pertinent positives: diarrhea, fever, nausea, vomiting, Headache. Severity of symptoms: At their worst the symptoms were moderate in the emergency department the symptoms are unchanged. The patient has not experienced similar symptoms in the past. The patient has not recently seen a physician. Historical: - Allergies: 14:44 No Known Drug Allergies; sv - PMHx: 14:44 Anxiety; Diabetes - IDDM; Fibromyalgia; Hypertension; Migraines; ulcerative colitis; sv - PSHx: 14:44 Hysterectomy; sv - Immunization history:: Flu vaccine is not up to date. - Social history:: Smoking status: Patient denies any tobacco usage or history of. ROS: 18:29 Constitutional: Negative for weight loss - she has had fever and chills Eyes: Negative kdr for injury, pain, redness, and discharge, Neck: Negative for injury, pain, and swelling, Cardiovascular: Negative for chest pain, palpitations, and edema, Abdomen/GI: Negative for abdominal pain, nausea, vomiting, diarrhea, and constipation, Back: Negative for injury and pain, : Negative for injury, bleeding, discharge, and swelling, MS/Extremity: Negative for injury and deformity, Skin: Negative for injury, rash, and discoloration, Neuro: Negative for headache, weakness, numbness, tingling, and seizure activity. Psych: Negative for depression, anxiety, suicide ideation, homicidal ideation, and hallucinations, Allergy/Immunology: Negative for hives, rash, and allergies, Endocrine: Negative for neck swelling, polydipsia, polyuria, polyphagia, and marked weight changes, Hematologic/Lymphatic: Negative for swollen nodes, abnormal bleeding, and unusual bruising. 18:29 Respiratory: Positive for Exam: 18:29 Constitutional: This is a well developed, well nourished patient who is awake, alert, kdr and in mild distress. Head/Face: Normocephalic, atraumatic. Eyes: Pupils equal round and reactive to light, extra-ocular motions intact. Lids and lashes normal. Conjunctiva and sclera are non-icteric and not injected. Cornea within normal limits. Periorbital areas with no swelling, redness, or edema. Neck: Trachea midline, no thyromegaly or masses palpated, and no cervical lymphadenopathy. Supple, full range of motion without nuchal rigidity, or vertebral point tenderness. No Meningismus. Chest/axilla: Normal chest wall appearance and motion. Nontender with no deformity. No lesions are appreciated. Cardiovascular: Regular rate and rhythm with a normal S1 and S2. No gallops, murmurs, or rubs. Normal PMI, no JVD. No pulse deficits. Respiratory: Lungs have equal breath sounds bilaterally, clear to auscultation and percussion. No rales, rhonchi or wheezes noted. No increased work of breathing, no retractions or nasal flaring. Abdomen/GI: Soft, non-tender, with normal bowel sounds. No distension or tympany. No guarding or rebound. No evidence of tenderness throughout. Back: No spinal tenderness. No costovertebral tenderness. Full range of motion. Skin: Warm, dry with normal turgor. Normal color with no rashes, no lesions, and no evidence of cellulitis. MS/ Extremity: Pulses equal, no cyanosis. Neurovascular intact. Full, normal range of motion. Neuro: Awake and alert, GCS 15, oriented to person, place, time, and situation. Cranial nerves II-XII grossly intact. Motor strength 5/5 in all extremities. Sensory grossly intact. Cerebellar exam normal. Normal gait. Psych: Awake, alert, with orientation to person, place and time. Behavior, mood, and affect are within normal limits. 18:29 ECG was reviewed by the Attending Physician. Vital Signs: 14:44 BP 152 / 84; Pulse 120; Resp 20; Temp 101.2(TE); Pulse Ox 99% ; Weight 74.84 kg; Height sv 5 ft. 0 in. (152.40 cm); 17:10 Temp 98.8; ll1 17:30 BP 157 / 90; Pulse 93; Resp 18; ll1 17:59 BP 149 / 86; Pulse 92; Resp 18; ll1 18:44 BP 147 / 70; Pulse 87; Resp 18; Pulse Ox 95% ; ll1 18:44 ll1 14:44 Body Mass Index 32.22 (74.84 kg, 152.40 cm) sv 18:44 Normal sinus on monitor ll1 MDM: 18:54 Patient medically screened. kdr 08/12 07:39 Data reviewed: vital signs, nurses notes, lab test result(s). Counseling: I had a kdr detailed discussion with the patient and/or guardian regarding: the historical points, exam findings, and any diagnostic results supporting the discharge/admit diagnosis, lab results, the need for outpatient follow up. 08/11 16:15 Order name: Amylase, Serum kdr 08/11 16:15 Order name: Basic Metabolic Panel kdr 08/11 16:15 Order name: Blood Culture Adult (2) kdr 08/11 16:15 Order name: CBC with Diff kdr 08/11 16:15 Order name: Ckmb kdr 08/11 16:15 Order name: CPK kdr 08/11 16:15 Order name: Lactate kdr 08/11 16:15 Order name: LFT's kdr 08/11 16:15 Order name: Lipase kdr 08/11 16:15 Order name: Procalcitonin; Complete Time: 17:53 kdr 08/11 16:15 Order name: Protime (+inr) kdr 08/11 16:15 Order name: Ptt, Activated kdr 08/11 16:15 Order name: Troponin (emerg Dept Use Only) kdr 08/11 16:15 Order name: Urine Microscopic Only kdr 08/11 16:54 Order name: Flu; Complete Time: 18:52 ss 08/11 17:02 Order name: Protime (+INR); Complete Time: 17:53 EDMS 08/11 17:02 Order name: PTT, Activated Partial Thromb; Complete Time: 17:53 EDMS 08/11 17:04 Order name: CBC with Automated Diff; Complete Time: 17:53 EDMS 08/11 17:07 Order name: Lactate; Complete Time: 17:53 EDMS 08/11 17:13 Order name: Strep; Complete Time: 18:52 ss 08/11 17:23 Order name: Urine Dipstick--Ancillary (enter results) 08/11 17:27 Order name: Basic Metabolic Panel [facility] 08/11 17:27 Order name: Liver (Hepatic) Function EDDE 08/11 17:27 Order name: Creatine Phosphokinase EDDE 08/11 17:27 Order name: CKMB Creatine Kinase MB EDDE 08/11 17:27 Order name: Troponin (Emerg Dept Use Only) EDDE 08/11 17:27 Order name: Amylase EDDE 08/11 17:27 Order name: Lipase EDDE 08/11 17:31 Order name: Urine Dipstick-Ancillary; Complete Time: 17:53 EDDE 08/11 16:15 Order name: Chest Single View XRAY [facility] 08/11 16:15 Order name: Accucheck; Complete Time: 19:01 kdr 08/11 16:15 Order name: Cardiac monitoring; Complete Time: 18:05 kdr 08/11 16:15 Order name: EKG - Nurse/Tech; Complete Time: 18:05 kdr 08/11 16:15 Order name: IV Saline Lock - Large Bore; Complete Time: 17:14 kdr 08/11 16:15 Order name: Labs collected and sent; Complete Time: 17:14 kdr 08/11 16:15 Order name: O2 Per Protocol; Complete Time: 17:14 kdr 08/11 16:15 Order name: O2 Sat Monitoring; Complete Time: 17:14 kdr 08/11 16:15 Order name: Urine Dipstick-Ancillary (obtain specimen); Complete Time: 17:14 kdr 08/11 17:22 Order name: RAD; Complete Time: 17:53 EDDE 08/11 17:43 Order name: Urine Culture EDDE 08/11 18:44 Order name: Throat Culture EDDE 08/11 18:46 Order name: SARS-COV-2 RT PCR; Complete Time: 18:52 EDMS EC/19 18:29 Rate is 91 beats/min. Rhythm is regular, Normal Sinus Rhythm with No ectopy. QRS [place] kdr is Normal. MI interval is normal. QRS interval is normal. QT interval is normal. Clinical impression: Normal ECG. Administered Medications: 14:50 Drug: Tylenol 1000 mg Route: PO; sv 17:14 Follow up: Response: No adverse reaction; Temperature is decreased; RASS: Alert and ll1 Calm (0) 17:15 Drug: Ibuprofen 600 mg Route: PO; ll1 18:29 Follow up: Response: No adverse reaction; RASS: Alert and Calm (0) ll1 18:28 Drug: NS 0.9% 1000 ml Route: IV; Rate: 1 bolus; Site: left antecubital; ll1 19:12 Follow up: Response: No adverse reaction; IV Status: Order to discontinue infusion; IV jb4 Intake: 700ml 19:06 Drug: Bactrim (160 mg-800 mg (DS) 1 tablet Route: PO; jb4 19:06 Follow up: Response: Medication administered at discharge. jb4 Disposition: 08/11/20 18:54 Discharged to Home. Impression: Urinary tract infection, site not specified, Viral infection, unspecified. - Condition is Stable. - Discharge Instructions: Dysuria, Viral Respiratory Infection, Urinary Tract Infection, Adult, Quzg-my-Beld. - Prescriptions for Bactrim DS 800- 160 mg Oral Tablet - take 1 tablet by ORAL route every 12 hours for 7 days; 14 tablet. - Medication Reconciliation Form, Thank You Letter, Antibiotic Education form. - Follow up: Private Physician; When: 2 - 3 days; Reason: If symptoms return, Further diagnostic work-up, Recheck today's complaints, Continuance of care, Re-evaluation by your physician. - Problem is new. - Symptoms have improved. Signatures: Dispatcher [employer] [facility] Renae Bowden RN RN sv Rittger, Kevin, MD MD [facility] Byron Richey RN RN jb4 Marley Aguilar RN RN ll1 Corrections: (The following items were deleted from the chart) 17:44 16:21 CORONAVIRUS+MR.LAB.BRZ ordered. [facility] 19:14 18:54 08/11/2020 18:54 Discharged to Home. Impression: Urinary tract infection, site jb4 not specified; Viral infection, unspecified. Condition is Stable. Forms are Medication Reconciliation Form, Thank You Letter, Antibiotic Education, Prescription Opioid Use. Follow up: Private Physician; When: 2 - 3 days; Reason: If symptoms return, Further diagnostic work-up, Recheck today's complaints, Continuance of care, Re-evaluation by your physician. Problem is new. Symptoms have improved. kdr
[2020-08-11] MEDS ORDERED: SMZ./TMP. 800/160 MG TABLET ONE (19:17)
[2020-08-11 22:10] VITALS: TEMP 98.8
[2020-08-11 22:19] VITALS: BP 147/70; O2SAT 95
--- NOTE | 2020-08-12 16:10 | EKG ---
Test Date: 2020-08-11 Test Time: 17:48:24 Resident Doctor: LITO MEASUREMENT RESULTS: Intervals: Rate: 91 WV: 156 QRSD: 96 QT: 384 QTc: 472 [place]: P: 20 WV: 156 QRS: -18 T: 11 INTERPRETIVE STATEMENTS: Normal sinus rhythm Normal ECG Compared to ECG 12/17/2019 16:00:15 No significant changes Electronically Signed On 08-12-20 16:08:08 CDT by Jeffrey Lance
== END 2020-08-11 19:14 | disposition home or self-care (01) ==
LOC: ER 14:33
DX: B34.9 Viral infection, unspecified (principal); N39.0 Urinary tract infection, site not specified; Z20.828 Contact with and (suspected) exposure to other viral communicable diseases
CPT/HCPCS: 93005; 87040 ×2; 87070; 87088; 85025; 87086; 80048; 36415; 82150; 82550; 85610; 80076; 87081; 83605; 85730; 87077; 87186; 84484; 82553; 83690; 84145; 87804 ×2; 71045; 96360; 99284; U0003; J7030; 81003; 81015

== ENCOUNTER 2020-10-15 07:41 | Emergency (ER) | payer OTHER ==
--- OUTSIDE RECORDS SUMMARY | 2020-10-15 07:44 | XMS REPORT | Continuity of Care Document ---
:1965 Author Organization [facility] [place] Information [place] Care Team Providers Name Role Phone [facility] Dean Information Exchange Unavailable Un available Problems Problem Status Onset Classification Date Comments Sourc e Date Reported STROKE SYMPTOMS Active 06/03/20 [place] rial 16 [place] CVA Active 06/03/20 [place] [id number] Dean Discharge 05/29/20 06/01/2016 [facility] Diagnosis: Common 16 [place] dical migraine Center MIRGRAINE Active 05/29/[address] Diabetes mellitus Resolved Problem 06/07/2016 [facility] (disorder) [facility] Hypertensive Resolved Problem 06/07/2016 disorder, [facility] systemic arterial (disorder) Hyperlipidemia Resolved Problem 06/07/2016 (disorder) [facility] Hypothyroidism Resolved Problem 06/07/2016 (disorder) [facility] Migraine without Active Problem 06/07/2016 [facility] aura (disorder) [facility] CEREBRAL Active [facility] INFARCTION, Dean UNSPECIFIED Medications Medication Details Route Status Patient Ordering Order Source Instructions Provider Date Pneumovax 23 Notes: (Same Inactive as: Pneumovax 2015[place] 23) Refrigerate {21 See Active (Methylprednisolo Instructions, 2015 [facility] ne 4 MG Oral PO, Take by Tablet [Medrol]) mouth as } Pack [Medrol directed on Dosepak] label., X 6 day, # 1 Pack, 0 Refill(s) Aspirin 325 MG 325 mg = 1 Active Oral Tablet tab, PO, 2015 [facility] Daily, # 30 tab, 0 Refill(s) Pneumovax 23 Notes: (Same Inactive as: Pneumovax 2015 [facility] 23) Refrigerate pneumococcal Notes: (Same Inactive capsular as: Pneumovax 2015 [facility] polysaccharide 23) type 1 vaccine / Refrigerate pneumococcal capsular polysaccharide type 10A vaccine / pneumococcal capsular polysaccharide type 11A vaccine / pneumococcal capsular polysaccharide type 12F vaccine / pneumococcal capsular polysacchar Aspirin Notes: Take Inactive with food. 2015 [place] potassium Notes: (Same No Longer chloride as: K-Dur 20) Active 2015 [facility] "Do Not Crush" With food and full glass of water losartan 25 mg 25 mg = 1 Active oral tablet tab, PO, 2015 [facility] Daily, 0 Refill(s) levothyroxine 125 125 microgram Active mcg (0.125 mg) = 1 cap, PO, 2015 [place] oral capsule Daily, # 30 cap, 3 Refill(s) Saline Flush 0.9% Notes: (Same No Longer as: BD Active 2015 [facility] Posiflush) Saline Flush 0.9% Notes: (Same No Longer as: BD Active 2015 [facility] Posiflush) tramadol 50 mg = 1 Active [place] hydrochloride 50 tab, PO, Q4H, 2015 edical MG Oral Tablet PRN Pain, X Cente r 10 day, # 60 tab, 0 Refill(s) [place] S PH-7.4 Notes: (Same Inactive H [place] (Bolus) IV as: Isolyte S 2016 Medical PH 7.4) [place] tramadol Notes: Not to Inactive [place] hydrochloride 50 exceed 2016 Medical MG Oral Tablet 400mg/day. Center (Same As: [facility]) Reglan Notes: (Same Inactive [place] as: Reglan) [address] [place] [address] Ketorolac 4 days Inactive [place] MEDICATION 2016 [facility] WASTE Center Product Size: 30 mg Product Wasted: ___ mg Diphenhydramine Notes: (Same Inactive [place] as: Benadryl) 2016 [facility] Sodium Chloride 1,000 mL, Inactive [place] [...] Sour ce Given pneumococcal Right completed [facility] 23-valent 6 Deltoid vaccine Results Order Name Results Value Reference Date Interpretation Comments Shari rce Range ELECTROLYTE AGAP 11.6 10.0 - 08/12 MH S 20.0 /2015 [facility] ELECTROLYTE B/C Ratio 17 6 - 25 08/12 MH S /2015 [facility] ELECTROLYTE A/G Ratio 0.7 0.7 - 1.6 08/12 MH S /2015 [facility] ELECTROLYTE Globulin 4.4 2.7 - 4.2 08/ MH S [facility] ELECTROLYTE ALANINE 33 0 - 65 08/12 MH S AMINOTRANSFE /2015 [facility] RASE ELECTROLYTE eGFR 115 / MH S Comment: The [facility] eGFR is calculated using the CKD-EPI formula. [...] 0.3 0.2 - 1.3 08/12 MH S [facility] ELECTROLYTE Calcium Lvl 8.9 8.5 - 10.5 /12 MH S /2016 [facility] ELECTROLYTE CO2 25 24 - 32 08/12 MH S /2016 [facility] ELECTROLYTE ASPARTATE 25 0 - 37 08/12 MH S TRANSAMINASE /2015 [facility] ELECTROLYTE Total 7.5 6.4 - 8.4 08/12 MH S Protein [facility] ELECTROLYTE Glucose Lvl 87 70 - 99 /12 MH S [facility] ELECTROLYTE Alk Phos 100 39 - 136 08/12 MH S /2015 [facility] ELECTROLYTE Albumin Lvl 3.1 3.5 - 5.0 08/12 MH S [facility] ELECTROLYTE Chloride Lvl 110 95 - 109 08/12 MH S /2015 [facility] ELECTROLYTE Potassium 3.6 3.5 - 5.1 08/12 MH S Lvl /2015 [facility] ELECTROLYTE BUN 8 7 - 22 08/ MH S /2015 [facility] ELECTROLYTE Creatinine 0.47 0.50 - 08/12 MH S Lvl 1.40 /2015 [facility] ELECTROLYTE Sodium Lvl 143 135 - 145 08/12 MH S /2015 [facility] HEMATOLOGY Hgb 12.1 12.0 - 08 MH 16.0 [facility] HEMATOLOGY Hct 36.2 36.0 - 08/12 MH 48.0 /2015 [facility] HEMATOLOGY MCV 95.0 80.0 - 08 MH 98.0 /2015 [facility] HEMATOLOGY WBC X 10x3 7.5 3.7 - 10.4 08/ MH /2015 [facility] HEMATOLOGY RBC X 10x6 3.81 4.20 - 08/ MH 5.40 /2015 [facility] HEMATOLOGY MCH 31.8 27.0 - 08 MH 31.0 [facility] HEMATOLOGY RDW 12.5 11.5 - 08 MH 14.5 [facility] HEMATOLOGY MPV 8.2 7.4 - 10.4 08/ MH /2015 [facility] HEMATOLOGY MCHC 33.5 32.0 - 08 MH 36.0 [facility] HEMATOLOGY Platelet 328 133 - 450 08/ MH /2015 [facility] HEMATOLOGY Lymphocytes 28.9 20.0 - 08/ MH 40.0 [facility] HEMATOLOGY Monocytes 8.2 2.0 - 12.0 06/04 MH /2015 [facility] HEMATOLOGY Eosinophils 0.9 0.0 - 4.0 06/04 [facility] HEMATOLOGY Basophils 1.3 0.0 - 1.0 08/ MH [facility] HEMATOLOGY Segs 60.7 45.0 - 08/ MH 75.0 /2015 [facility] HEMATOLOGY Segs-Bands # 4.6 1.5 - 8.1 08 [facility] HEMATOLOGY Monocytes # 0.6 0.0 - 0.8 08 MH [facility] HEMATOLOGY Basophils # 0.1 0.0 - 0.2 08 MH [facility] HEMATOLOGY Lymphocytes 2.2 1.0 - 5.5 08/ MH # /2015 [facility] HEMATOLOGY Eosinophils 0.1 0.0 - 0.5 08/ MH # /2016 [facility] CARDIAC CK-MB INDEX <1.1 0.0 - 2.5 06/04 MH ENZYMES /2016 [facility] CARDIAC CK MB <0.5 0.5 - 3.6 / MH ENZYMES /2016 [facility] CARDIAC Total CK 47 12 - 191 / MH ENZYMES /2016 [facility] CARDIAC Troponin-I <0.02 0.00 - 08/ MH ENZYMES 0.40 /2016 [facility] ELECTROLYTE Potassium 3.4 3.5 - 5.1 /12 MH S Lvl /2016 [facility] ELECTROLYTE CO2 27 24 - 32 / MH S /2016 [facility] ELECTROLYTE Sodium Lvl 142 135 - 145 / MH S /2016 [facility] ELECTROLYTE BUN 8 7 - 22 / MH S /2016 [facility] ELECTROLYTE Chloride Lvl 109 95 - 109 06/04 MH S /2016 [facility] ELECTROLYTE Creatinine 0.56 0.50 - 08 MH S Lvl 1.40 [facility] ELECTROLYTE AGAP 9.4 10.0 - 06/04 MH S 20.0 /2016 [facility] ELECTROLYTE eGFR 108 / Result MH S /2016 Comment: The [facility] eGFR is calculated using the CKD-EPI formula. [...] 70 - 99 06/04 MH S /2016 [facility] ELECTROLYTE Calcium Lvl 8.9 8.5 - 10.5 06/04 MH S /2016 [facility] HEMATOLOGY Eosinophils 0.6 0.0 - 4.0 06/04 MH /2015 [facility] HEMATOLOGY Segs-Bands # 5.1 1.5 - 8.1 08/ MH /2015 [facility] HEMATOLOGY Basophils 0.6 0.0 - 1.0 08/ MH /2015 [facility] HEMATOLOGY Monocytes # 0.5 0.0 - 0.8 08/ MH /2015 [facility] HEMATOLOGY Lymphocytes 2.2 1.0 - 5.5 08/12 MH # /2015 [facility] HEMATOLOGY Plt Morph Normal / MH (06/03/16 10:43 PM) /2015 [place] and HEMATOLOGY Segs 64.4 45.0 - 06/04 MH 75.0 /2015 [facility] HEMATOLOGY RBC Morph Normal 06/04 MH (06/03/16 10:43 PM) /2015 [place] and HEMATOLOGY Lymphocytes 27.6 20.0 - 06/04 MH 40.0 [facility] HEMATOLOGY Monocytes 6.8 2.0 - 12.0 06/04 MH /2015 [facility] HEMATOLOGY aPTT 47.8 22.9 - 08 MH 35.8 /2015 [facility] HEMATOLOGY INR 1.12 0.85 - 06/04 MH 1.17 [facility] HEMATOLOGY PROTIME 14.7 12.0 - 08 MH 14.7 /2015 [facility] HEMATOLOGY RDW 12.3 11.5 - 08 MH 14.5 /2015 [facility] HEMATOLOGY Platelet 346 133 - 450 06/04 MH /2015 [facility] HEMATOLOGY MPV 8.2 7.4 - 10.4 06/04 /2015 [facility] HEMATOLOGY Hgb 12.7 12.0 - 08 MH 16.0 [facility] HEMATOLOGY Hct 38.2 36.0 - 06/04 MH 48.0 [facility] HEMATOLOGY RBC X 10x6 3.99 4.20 - 08 MH 5.40 [facility] HEMATOLOGY MCHC 33.2 32.0 - 08 MH 36.0 [facility] HEMATOLOGY MCV 95.7 80.0 - 08 MH 98.0 [facility] HEMATOLOGY MCH 31.8 27.0 - 08 MH 31.0 [facility] HEMATOLOGY WBC X 10x3 7.9 3.7 - 10.4 08 MH /2015 [facility] CARDIAC Troponin-I <0.02 0.00 - 08 MH ENZYMES 0.40 [facility] CARDIAC CK MB <0.5 0.5 - 3.6 08/ MH ENZYMES /2016 [facility] CARDIAC Total CK 49 12 - 191 08/ MH ENZYMES /2016 [facility] CARDIAC CK-MB INDEX <1.0 0.0 - 2.5 / MH ENZYMES /2016 [facility] CHEM PANEL eGFR 105 / Result /2015 Comment: The [facility] eGFR is calculated using the CKD-EPI formula. [...] 15 6 - 25 08/ MH /2016 [facility] CHEM PANEL Globulin 4.8 2.7 - 4.2 / MH /2015 [facility] CHEM PANEL ASPARTATE 28 0 - 37 / MH [facility] CHEM PANEL AGAP 9.3 10.0 - 08/ MH 20.0 /2016 [facility] CHEM PANEL A/G Ratio 0.7 0.7 - 1.6 06/04 [facility] CHEM PANEL Chloride Lvl 109 95 - 109 06/04 MH [facility] CHEM PANEL CO2 26 24 - 32 / MH /2015 [facility] CHEM PANEL Creatinine 0.61 0.50 - 08/12 MH Lvl 1.40 /2016 [facility] CHEM PANEL Sodium Lvl 141 135 - 145 / MH /2015 [facility] CHEM PANEL Potassium 3.3 3.5 - 5.1 / MH Lvl /2016 [facility] CHEM PANEL Total 8.2 6.4 - 8.4 / MH [facility] CHEM PANEL Bili Total 0.3 0.2 - 1.3 / [facility] CHEM PANEL Calcium Lvl 8.9 8.5 - 10.5 / [facility] CHEM PANEL BUN 9 7 - 22 08/ /2015 [facility] CHEM PANEL ALANINE 37 0 - 65 08/ MH AMINOTRANSFE /2015 [facility] RASE CHEM PANEL Albumin Lvl 3.4 3.5 - 5.0 08/ /2015 [facility] CHEM PANEL Alk Phos 116 39 - 136 08/ MH /2015 [facility] CHEM PANEL Glucose Lvl 129 70 - 99 08/ [facility] HEMATOLOGY aPTT 37.9 22.9 - 08/ MH 35.8 /2015 [facility] HEMATOLOGY MPV 8.5 7.4 - 10.4 08/ /2015 [facility] HEMATOLOGY Platelet 353 133 - 450 08/ [facility] HEMATOLOGY RDW 12.3 11.5 - 08 MH 14.5 [facility] HEMATOLOGY MCHC 33.0 32.0 - 08 MH 36.0 [facility] HEMATOLOGY Hgb 12.5 12.0 - 08 MH 16.0 [facility] HEMATOLOGY WBC X 10x3 7.3 3.7 - 10.4 08/ /2015 [facility] HEMATOLOGY RBC X 10x6 3.98 4.20 - 08 MH 5.40 /2015 [facility] HEMATOLOGY Hct 38.0 36.0 - 08 MH 48.0 [facility] HEMATOLOGY MCV 95.4 80.0 - 08 MH 98.0 [facility] HEMATOLOGY MCH 31.5 27.0 - 08 MH 31.0 [facility] HEMATOLOGY PROTIME 13.9 12.0 - 08 MH 14.7 [facility] HEMATOLOGY INR 1.04 0.85 - 08 MH 1.17 [facility] HEMATOLOGY Segs-Bands # 4.5 1.5 - 8.1 08/ /2015 [facility] HEMATOLOGY Monocytes 7.1 2.0 - 12.0 / [facility] HEMATOLOGY Basophils 0.6 0.0 - 1.0 / [facility] HEMATOLOGY Eosinophils 0.7 0.0 - 4.0 / [facility] HEMATOLOGY Lymphocytes 2.2 1.0 - 5.5 08/12 MH /2015 [facility] HEMATOLOGY Monocytes # 0.5 0.0 - 0.8 08/ [facility] HEMATOLOGY Segs 61.8 45.0 - 08/ MH 75.0 /2015 [facility] HEMATOLOGY Lymphocytes 29.8 20.0 - 06/04 40.0 [facility] URINE AND UA WBC 0-2 /HPF None Seen 06/04 STOOL /HPF /2015 [facility] URINE AND UA Sq Epi Occasional Few /LPF 06/04 STOOL /LPF /2015 [facility] URINE AND UA Bacteria Occasional None Seen 06/04 [facility] /HPF /HPF [facility] URINE AND UA Ketones Negative Negative 06/04 [facility] mg/dL mg/dL [facility] URINE AND UA Glucose Negative Negative 06/04 [facility] mg/dL mg/dL [facility] URINE AND UA Leuk Est Negative Negative 06/04 [facility] (06/03/16 7:19 PM) /2015 [place] URINE AND UA Nitrite Negative Negative 06/04 [facility] (06/03/16 7:19 PM) [place] URINE AND UA Bili Negative Negative 06/04 [facility] *NA* /2015 [facility] (06/03/16 7:19 PM) URINE AND UA Color Yellow Yellow 06/04 [facility] *NA* /2015 [facility] (06/03/16 7:19 PM) URINE AND UA Protein Negative Negative 06/04 [facility] mg/dL mg/dL [facility] URINE AND UA Blood Negative Negative 06/04 [facility] (06/03/16 7:19 PM) [place] URINE AND UA 2.0 0.1 - 1.0 06/04 [facility] Urobilinogen /2015 [facility] URINE AND UA pH 7.5 5.0 - 8.0 06/04 STOOL [facility] URINE AND UA Turbidity Clear Clear 06/04 [facility] (06/03/16 7:19 PM) [place] URINE AND UA Spec Grav 1.010 <=1.030 06/04 STOOL /2015 [facility] Pathology Reports No Data Provided for This Section Diagnostic Reports Report Value Date Source Brain wo contrast MRI Patient Name: JULIAN SCHERER 06/04/2016 [facility] : 1965; Age: 50 years y/o Female MR: [id number] Study: Brain wo contrast MRI 06/03/2016 11:33 [...] unremarkable brain MRI without cont rast. SL: [facility] Brain/Neck CTA Study: Brain/Neck CTA 06/03/2016 8:15 PM CDT 05/24 [facility] Patient Name: JULIAN SCHERER MR: [id number] : 1965; Age: 50 years y/o Female [...] CT 06/03/2016 6 :21 PM CDT 06/03/2016 [facility] Patient Name: JULIAN SCHERER MR: [id number] : 1965; Age: 50 years y/o Female [...] : 1965; Age: 50 years Female MR: [id number] Study: Chest 1view DX Order Time: 06/03/2016 [...] follow-up chest x-ray to document resolution. SL: [id number] Brain wo contrast CT EXAM: CT BRAIN WITHOUT CONTRAST 05/29/2016 [facility] DATE: 05/29/2016 3:16 PM CDT Cente r [...] Date Comments Source Heart Rate 76 06/04/2016 [facility] Temperature Oral (F) 97.9 F 06/04/2016 [place] Systolic (mm Hg) 149 06/04/2016 [facility] Diastolic (mm Hg) 87 06/04/2016 [place] Respitory Rate 18 06/04/2016 [facility] Systolic (mm Hg) 144 06/04/2016 [facility] Diastolic (mm Hg) 95 06/04/2016 [facility] Temperature Oral (F) 97.7 F 06/04/2016 [facility] Heart Rate 78 06/04/2016 [facility] Respitory Rate 18 06/04/2016 [facility] Temperature Oral (F) 98.1 F 06/04/2016 [place] Systolic (mm Hg) 135 06/04/2016 [facility] Diastolic (mm Hg) 89 06/04/2016 [place] Respitory Rate 18 06/04/2016 [facility] Heart Rate 69 06/04/2016 [facility] Height 152.4 cm 06/04/2016 [facility] Weight 71.903 06/04/2016 [facility] BMI Calculated 30.96 06/04/2016 [facility] Weight 71.364 06/03/2016 [facility] BMI Calculated 30.73 06/03/2016 [facility] Height 152.4 cm 06/03/2016 [facility] Respitory Rate 18 05/29/2016 [facility] Temperature Oral (F) 99.8 F 05/29/2016 [facility] Systolic (mm Hg) 127 05/29/2016 [facility] Diastolic (mm Hg) 67 05/29/2016 [facility] Heart Rate 96 05/29/2016 [facility] Temperature Oral (F) 100.9 F 05/29/2016 [facility] Heart Rate 91 05/29/2016 [facility] Respitory Rate 18 05/29/2016 [facility] Systolic (mm Hg) 149 05/29/2016 [facility] Diastolic (mm Hg) 61 05/29/2016 [facility] Systolic (mm Hg) 149 05/29/2016 [facility] Diastolic (mm Hg) 79 05/29/2016 [facility] Temperature Oral (F) 99.5 F 05/29/2016 [facility] Heart Rate 98 05/29/2016 [facility] Respitory Rate 22 05/29/2016 [facility] BMI Calculated 30.73 05/29/2016 [facility] Height 152.4 cm 05/29/2016 [facility] Weight 71.364 05/29/2016 [facility] Encounters Location Location Encounter Encounter Reason Attending ADM DC Stat us Source Details Type Number For Provider Date Date Visit [facility] [place] [id number] Bill 05/29 05/30 [facility] Emergency Nehemiah /2015 [facility] [id number] Ayyash 06/03 06/04 [facility] /2015 [facility] Procedures Procedure Code Date Perfomer Comments Source Gallbladder [id number] [facility] operation Hysterotomy [id number] [facility] Assessment and Plan Assessment and Plan Date Source Extracted from:Title: Teleneurology Consultation 06/04/2016 [facility] Author: Halina Poe MD Date: 06/04/16 TELEMEDICINE NEUROLOGY - CONSULTATION Date of Consult: 06/04/16 CC: slurred speech and severe headache HISTORY OF PRESENT ILLNESS: 50 year old with HTN, DM, HL, lupus (has a etl lead) and fibromyalgia who was admitted yesterday with [...] r 0 1c. 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 -Would prescribe Medrol dose pack in oralia e headache returns before patient follows up with neurologist. Patient has also been advised to take magnesium over the counter daily to prevent headache and encouraged PO fluid intake, rest when needed. -Elevated PTT on one read, patient has a n appointment with her etl lead in 07/2016 would have it rechecked at that time, and if not done yet evaluate for lupus anticoagulant. At this point however there is no change in management. -Neurology follow up. Patient understand s the importance of neurology follow up for chronic migraine headache management. She was provided the phone number for [facility] ) if she would like to follow up [...] with any interim questions. Halina Poe MD [facility], Neurology Call center [phone] Addendum by Halina Poe MD on 06/04/2016 11:18 No further recommendations from neurolog y aside from formal swallow eval and outpatient follow up as described in plan below. Please call if any additional questions. Plan of Care No Data Provided for This Section Social History Social History Date Source Social History TypeResponse 06/04/2016 [facility] Smoking Status Never smoker; Ready to change: No; Shwetha rns about tobacco use in household: No; Exposure to Tobacco Smoke None; Cigarette Smoking Last 365 Days No; Reg Smoking Cessation Counseling No Social History TypeResponse 05/29/2016 [facility] Smoking Status Never smoker; Ready to change: No; Shwetha rns about tobacco use in household: No; Exposure to Tobacco Smoke None; Cigarette Smoking Last 365 Days No; Reg Smoking Cessation Counseling No Family History No Data Provided for This Section Advance Directives No Data Provided for This Section Functional Status No Data Provided for This Section
--- OUTSIDE RECORDS SUMMARY | 2020-10-15 07:45 | XMS REPORT | Summary of Care ---
:1965 Author Organization [facility] Address [address] [place] [id number] Care Team Providers Name Role Phone Missy Cabrera MD Primary Care Provider [phone] Nela Del Toro Neurologist Reason for Visit Reason Comments Refill Request Encounter Details Date Type Department Care Team Description 09/02/2020 Refill [facility] Pediatric and Ema Cabrera, Refill Request Adult Primary Care- [place] [address] [place] [address] [address] [address] [address] [place] [address] [place] [address] [phone] Allergies No Known Allergiesdocumented as of this encounter (statuses as of 09/05/2020) Medications Medication Sig Dispensed Refills Start Date [...] with long-term current use of insulin Insulin [place], Use 2 times 180 Each 3 05/24/2018 [...] Mixed times daily. hyperlipidemia fluticasone Use 1 [place] in 16 g 0 07/04/2019 Ac tive propionate 50 each nostril mcg/actuation nasal daily. sprayIndications: Acute non-recurrent frontal sinusitis, Congestion of nasal sinus Insulin [place] Inject 52 90 [...] mL 0 04/25/2020 [place] (TRULICITY) 1.5 under the skin mg/0.5 mL weekly. PnIjIndications: Uncontrolled type 2 diabetes mellitus with diabetic polyneuropathy, with long-term current use of insulin LEVOTHYROXINE 137 TAKE 1 TABLET 90 tablet 0 09/05/2020 Active mcg BY MOUTH EVERY tabletIndications: MORNING Primary hypothyroidism levothyroxine 137 Take 1 tablet 90 tablet 3 08/13/2019 02 Discontinued mcg by mouth every 0 tabletIndications: morning. Primary hypothyroidism documented as of this encounter (statuses as of 09/05/2020) Active Problems Problem Noted Date Acute non-recurrent [...] as of this encounter (statuses as of 09/05/2020) Immunizations Name Administration Dates Next Due Influenza [...] Assigned at Date Recorded Not on file documented as of this encounter Last Filed [...] 12/06/2018, Additional history exists Depression Screening 07/02/2021 07/02/2020 DTaP,Tdap,and Td Vaccines (2 - 06/26/2029 06/26/2019 Td) COLONOSCOPY 08/15/2029 08/15/2019, 12/06/2018, 06/21/2013 (Previously completed) Colorectal Cancer Screening 08/15/2029 PAP SMEAR Discontinued 07/02/2011 (Previously completed) HEPATITIS C (HCV) SCREEN Completed 03/30/2017, 07/13/2016 documented as of this encounter Implants Implanted Type Area Oxygen Furnace Operator Device Shelf Model / Identifier Expiration Serial / Date Lot [employer] [place] ANCHOR Right: Biomet 04/18/2023 [id number] / Implanted: Qty: 1 on 07/02/2020 by Steve Vásquez MD at [facility] Shoulder [id number] / [id number] [employer] [place] ANCHOR Right: [employer]omet 08/21/2023 [id number] / Implanted: Qty: 1 on 07/02/2020 by Steve Vásquez MD at [facility] Shoulder [id number] / [id number] documented as of this encounter Results Not on filedocumented in this encounter Visit Diagnoses Diagnosis Primary hypothyroidism Unspecified hypothyroidism documented in this encounter Insurance Payer Benefit Plan / Subscriber ID Effective Dates Phone Addre ss Type Group MEDICARE MEDICARE PART [id number] 2006-[place] [phone] Medicare A & B t [id number] [place] [address] [facility] MEDICAID OF [id number] 2018-Libby [phone] Medicaid [place] [address] 0 [id number] [place] [address] documented as of this encounter
--- OUTSIDE RECORDS SUMMARY | 2020-10-15 07:45 | XMS REPORT | Continuity of Care Document ---
:1965 Author Organization [facility] t Address [address] [place] [address] Care Team Providers Name Role Phone Missy Cabrera MD Attending Clinician [phone] Isiah Oneal MD Attending Clinician Doctor Unassigned, Name Attending Clinician Unavailable Pob, [...] oria SYMPTOMS 06-03 18:44:00 l STROKE 00:00: [place] SYMPTOMS 00 Active 06/03/2016 [facility] Daen CVA Diagnosis Active 2016-06-08 Mem oria 06-03 09:35:00 l CVA 00:00: Dean 00 Active 06/03/2016 [facility] [place] MIRGRAINE Diagnosis Active 2016-05-29 Memoria 05-29 15:03:00 l 00:00: Dean MIRGRAINE 00 Active 05/29/2016 [facility] Diabetes Problem Resolve 2016-06-07 Me moria mellitus d 03:01:56 l (disorder) Diabetes He rmann mellitus (disorder) Resolved Problem 06/07/2016 [facility] Hypertensi Problem Resolve 2016-06-07 Memoria ve d 03:01:56 l disorder, [place] systemic Hypertensi arterial ve (disorder) disorder, systemic arterial (disorder) Resolved Problem 06/07/2016 [facility] Hyperlipid Problem Resolve 2016-06-07 Memoria emia d 03:01:56 l (disorder) Farzad n Hyperlipid emia (disorder) Resolved Problem 06/07/2016 [facility] Hypothyroi Problem Resolve 2016-06-07 Memoria dism d 03:01:56 l (disorder) Farzad n Hypothyroi dism (disorder) Resolved Problem 06/07/2016 [facility] Migraine Problem Active 2016-06-07 Mem oria without 03:01:56 l aura Migraine Farzad n (disorder) without aura (disorder) Active Problem 06/07/2016 [facility] CEREBRAL Diagnosis Active 2016-06-08 M emoria INFARCTION 09:35:00 l , CEREBRAL Farzad n UNSPECIFIE INFARCTION D , UNSPECIFIE D Active [facility] Discharge Problem 2016-06-01 2016-06-01 Memoria Diagnosis: 8-06 01:52:24 01:52:24 l Common 05:00: Dean migraine Discharge 00 Diagnosis: Common migraine 6 06/01/2016 [facility] Allergies, Adverse Reactions, Alerts This patient has no known allergies or adverse reactions. Social History Smoking Status Start Date Stop Date Source Social History [facility] Medications Ordered Filled Start Stop Current Ordering Indication Dosage Frequency Signature Comments Components Source Medication Medication Date Date Medication? Clinician (SIG) Name Name Pneumovax No Notes: Memori a 23 06-04 (Same as: l 20:44: Pneumovax Dean 00 ) Refrigerat e { Yes See Memoria (Methylpred 06-04 Instructio l nisolone 4 20:31: ns, PO, Herm maximilian MG Oral 00 Take by Tablet mouth as [Medrol]) } directed Pack on label., [Medrol X 6 day, # Dosepak] 1 Pack, 0 Refill(s) Aspirin 325 Yes 325 mg = 1 Memoria MG Oral 8-12 tab, PO, l Tablet 20:31: Daily, # [place] 00 30 tab, 0 Refill(s) Pneumovax No Notes: Memori a 23 8-12 (Same as: l 15:00: Pneumovax [place] 00 23) Refrigerat e pneumococca No Notes: [...] Memoria 8-12 Take with l 14:00: food. [place] 00 potassium No Notes: Memori a chloride 8-12 (Same as: l 04:49: K-Dur 20) [place] 00 "Do Not Crush" With food and full glass of water losartan 25 Yes 25 mg = 1 M emoria mg oral 8-12 tab, PO, l tablet 03:55: Daily, 0 [place] 00 Refill(s) levothyroxi Yes 125 Memori a ne 125 mcg 8-12 microgram l (0.125 mg) 03:55: = 1 cap, Her cantrell oral 00 PO, Daily, capsule # 30 cap, 3 Refill(s) Saline No Notes: Memoria Flush 0.9% 8-12 (Same as: l 01:28: BD [place] Posiflush) Saline No Notes: Memoria Flush 0.9% 8-11 (Same as: l 23:21: BD [place] Posiflush) tramadol Yes 50 mg = 1 Schuyler yonis hydrochlori 8-06 tab, PO, l de 50 MG 23:47: Q4H, PRN Mary nn Oral Tablet 00 Pain, X 10 day, # 60 tab, 0 Refill(s) Isolyte S No Notes: Memori a PH-7.4 8-06 (Same as: l (Bolus) IV 21:42: Isolyte S He rmann 00 PH 7.4) tramadol Yes Notes: Not Mem oria hydrochlori 05-29 to exceed l de 50 MG 21:41: 400mg/day. Her cantrell Oral Tablet 00 (Same As: Ultram) Reglan No Notes: Memoria 05-29 (Same as: l 19:47: Reglan) Dean Ketorolac No 4 days Memor ia 05-29 l 19:47: MEDICATION [place] WASTE Product Size: 30 mg Product Wasted: ___ mg Diphenhydra No Notes: Schuyler yonis mine 05-29 (Same as: l 19:45: Benadryl) [place] Sodium No 1,000 mL, Memori a Chloride [...] Oral (F) 2016-06-04 21:08:00 97.9 F [facility] Systolic (mm Hg) 2016-06-04 21:08:00 Schuyler rial Dean Diastolic (mm Hg) 2016-06-04 21:08:00 Mem orial [place] Respitory Rate 2016-06-04 21:08:00 Memori al [place] Systolic (mm Hg) 2016-06-04 16:48:00 Schuyler rial [place] Diastolic (mm Hg) 2016-06-04 16:48:00 Mem orial Dean Temperature Oral (F) 2016-06-04 16:48:00 97.7 F [facility] [place] Heart Rate 2016-06-04 16:48:00 [facility] Respitory Rate 2016-06-04 16:48:00 Memori al [place] Temperature Oral (F) 2016-06-04 12:33:00 98.1 F [facility] [place] Systolic (mm Hg) 2016-06-04 12:33:00 Schuyler rial [place] Diastolic (mm Hg) 2016-06-04 12:33:00 Mem orial [place] Respitory Rate 2016-06-04 12:33:00 Memori al [place] Heart Rate 2016-06-04 12:33:00 [facility] Height 2016-06-04 03:42:00 152.4 cm [facility] [place] Weight 2016-06-04 03:42:00 [facility] [place] BMI Calculated 2016-06-04 03:42:00 Memori al [place] Weight 2016-06-03 23:16:00 [facility] [place] BMI Calculated 2016-06-03 23:16:00 Memori al [place] Height 2016-06-03 23:16:00 152.4 cm [facility] [place] Respitory Rate 2016-05-29 23:47:00 Memori al [place] Temperature Oral (F) 2016-05-29 23:47:00 99.8 F [facility] Systolic (mm Hg) 2016-05-29 23:47:00 Schuyler rial [place] Diastolic (mm Hg) 2016-05-29 23:47:00 Mem orial [place] Heart Rate 2016-05-29 23:47:00 [facility] [place] Temperature Oral (F) 2016-05-29 21:03:00 100.9 F [facility] [place] Heart Rate 2016-05-29 21:03:00 [facility] [place] Respitory Rate 2016-05-29 21:03:00 Memori al [place] Systolic (mm Hg) 2016-05-29 21:03:00 Schuyler rial Dean Diastolic (mm Hg) 2016-05-29 21:03:00 Mem orial [place] Systolic (mm Hg) 2016-05-29 19:01:00 Schuyler rial Dean Diastolic (mm Hg) 2016-05-29 19:01:00 Mem orial [place] Temperature Oral (F) 2016-05-29 19:01:00 99.5 F [facility] [place] Heart Rate 2016-05-29 19:01:00 [facility] [place] Respitory Rate 2016-05-29 19:01:00 Memori al [place] BMI Calculated 2016-05-29 19:01:00 Memori al [place] Height 2016-05-29 19:01:00 152.4 cm [facility] [place] Weight 2016-05-29 19:01:00 [facility] [place] Procedures Procedure Date / Time Performed Performing Clinician [facility] e Gallbladder operation [facility] H ermann Hysterotomy [facility] Encounters Start End Encounter Admission Attending Care Care Encounter Source Date/Time Date/Time Type Type Clinicians Facility Department ID 2020-09-02 2020-09-02 [id number] 00:00:00 00:00:00 Missy Matson [place] [id number] [place] [id number] Professio [id number] [facility] 231 [facility] 2020-07-02 2020-07-02 [facility] [id number] 06:46:00 10:22:00 Encounter Steve Joyce [place] [id number] [place] [id number] Surgical [id number] [facility] 07 2020-07-02 2020-07-02 Orders Doctor JUSTIN [id number] 00:00:00 00:00:00 Only Unassigned, RENA [id number] [place] [facility] [id number] [id number] 2020-07-01 2020-07-01 Architecture Faculty Member Doris [facility] [id number] 08:56:05 10:00:30 Visit Lab Main Letty [id number] [place] [id number] Professio [id number] [facility] 353 [facility] 2020-07-01 2020-07-01 Laboratory Only, [facility] [id number] 08:51:03 09:06:03 Only Test Letty [id number] [place] [id number] [place] [id number] 2016-06-03 2016-06-04 Outpatient CARTER White MHANA [id number] 18:06:00 18:25:00 Kemal Thornton 2016-05-29 2016-05-29 Outpatient JEN Cerna [facility] [id number] 13:59:00 19:17:00 Bill 00 Luke Results [...] code = MCH) 31.8 pg 27.0-31.0 [facility] EgecdaiMEMPCGQXQJ5421-37-38 10:10:0012.5[facility]ann[facility]MATOLOGY 2016-06-04 10:10:008.2[facility] ZqgwrqcCULCJLHXZL0532-33-28 10:10:0033.5[facility] EghwgqfRAKRJQGBJK1275-57-43 10:10:91085Zflbivra WksmtaiSELRFPVSDN9763-82-96 10:10:0028.9[facility] CvovbpfVQSSHCLBYB3879-79-98 10:10:008.2[facility] [place] BAAYUKGLQR8803-34-68 10:10:000.9[facility] QjjcflaAIOHMVFOAK7209-29-97 10:10:001.3 [facility] BwwoczlAATZHVGKDY0213-56-61 10:10:0060.7[facility] HermannHEMATOLOGY 2016-06-04 10:10:004.6[facility] KbwgfsgYOCTMMKCXF1020-90-00 10:10:000.6[facility] WkmoryePTXYBWZAIB2049-12-61 10:10:000.1[facility] TaemcuhDWRIFGHXIB5855-59-42 10:10:002.2[facility] KekmdfmHSDFPCEHSK5987-37-68 10:10:000.1[facility] CARDIAC BYUNPTX7573-19-88 03:43:00<1.1[facility] HermannCARDIAC ENZYMES 2016-06-04 03:43:00<0.5[facility] HermannCARDIAC IRDMSBF1841-27-06 03:43:0047 [facility]annCARDIAC XZCNGZE0866-12-57 03:43:00<0.02[facility] HIYAQWRPWVWO5697-68-63 03:43:003.4[facility] BhdrkkmUWRATPTMEAVB0136-57-60 03:43:0027[facility] TulxuilWQNCPPRGUUKS3859-74-56 03:43:74159Jhbmadne [place] ANXGHUATZQPK4729-40-74 03:43:008[facility] LfgqhblACJYMTFWKKFX3777-82-41 03:43:00 109[facility] RquwfypSKYVHAJHLOLN3465-81-16 03:43:000.56[facility] ASDBOERVHMNE1218-18-26 03:43:009.4[facility] XcysyktGNZOAHQANVPG4694-80-16 03:43:31418Isbtlwrx QwkocukQWQWIVBLSNLB2357-85-29 03:43:0097[facility] [place] LHQNUKYAAWSR6957-21-37 03:43:008.9[facility] HvbetziGTCFLUEGNC4063-49-04 03:43:00 0.6[facility] IziocycXTJYJZIHRB6290-23-71 03:43:005.1[facility] HermannHEMATOLOGY 2016-06-04 03:43:000.6[facility] JiuagumUQASOQMPWJ0663-30-47 03:43:000.5[facility] OxydyvmQIMQMCEITO0136-71-82 03:43:002.2[facility] EoqqktjBYPZEXSSNK8502-69-00 03:43:00Normal (06/03/16 10:43 PM)[facility] ApwpridTYGTWYMHRL4542-29-43 03:43:00 64.4[facility] SqshofdGJFODOUPYH9293-93-36 03:43:00Normal (06/03/16 10:43 PM) [facility] OkmqfapLWVGSYRLZU4535-67-60 03:43:0027.6[facility] HermannHEMATOLOGY 2016-06-04 03:43:006.8[facility] MidericAPBEDGRSPI1123-17-35 03:43:00 Test Item Value Reference Range Interpretation Comments aPTT (test code = aPTT) 47.8 s 22.9-35.8 [facility] EvnureoUJQXHFWBWE8483-05-82 03:43:001.12[facility]annHEMATOLOGY 2016-06-04 03:43:00 Test Item Value Reference Range Interpretation Comments PROTIME (test code = PROTIME) 14.7 s 12.0-14.7 [facility] CydbtybDKLNFYUHOH4475-73-31 03:43:0012.3[facility] HermannHEMATOLOGY 2016-06-04 03:43:17574Jhuhkjzl IvmvwzvNOJUEPMKDL6726-64-78 03:43:008.2[facility] YjdojqaHVOYOTKAQO3177-47-61 03:43:0012.7[facility] PiqlbmtVJTKEQVDPN0483-78-23 03:43:0038.2[facility] LklesuoLJYZZVBLKN0409-65-57 03:43:003.99[facility] [place] LSQRRTPBWV7644-11-07 03:43:0033.2[facility] AfgooffMUFTTQWAKT7720-37-29 03:43:00 95.7[facility] BydzbpzMEXIIWEHWW2433-47-86 03:43:00 Test Item Value Reference Range Interpretation Comments MCH (test code = MCH) 31.8 pg 27.0-31.0 [facility] JozfvhdFABSSIPRIH7041-60-37 03:43:007.9[facility] HermannCARDIAC ENZYMES 2016-06-04 00:19:00<0.02[facility] HermannCARDIAC ZKVVCNE8186-06-70 00:19:00 <0.5[facility] HermannCARDIAC LCMXRSG3310-17-10 00:19:0049[facility] CARDIAC WKQTRLT1183-40-11 00:19:00<1.0[facility] HermannCHEM HRMVQ8308-04-54 00:19:62989Xpgqcqvj HermannCHEM QOBTW5125-79-53 00:19:0015[facility] HermannCHEM JZMMB5383-82-96 00:19:004.8[facility] HermannCHEM PGHWT0954-75-49 00:19:0028 [facility]annCHEM EYVZN8680-78-90 00:19:009.3[facility] HermannCHEM PANEL 2016-06-04 00:19:000.7[facility] HermannCHEM ILCXQ2875-72-10 00:19:62841Busrynkz HermannCHEM WWRNU5535-01-23 00:19:0026[facility] HermannCHEM ZUBKO2094-35-70 00:19:000.61[facility] HermannCHEM NXSRT7855-17-54 00:19:78323Ertblsjy HermannCHEM YNUNV4736-78-73 00:19:003.3[facility] HermannCHEM ZNYOW9926-02-66 00:19:008.2 [facility]annCHEM ADJUT8335-60-07 00:19:000.3[facility] HermannCHEM PANEL 2016-06-04 00:19:008.9[facility] HermannCHEM MSECE3096-77-86 00:19:009[facility] HermannCHEM MHOXW3719-06-66 00:19:0037[facility] HermannCHEM OUJID3358-50-26 00:19:003.4[facility] HermannCHEM TLEHG4609-75-18 00:19:59903Yavmzvrz HermannCHEM GFYAO4674-55-46 00:19:26942Fbeyzqxk VjodhfaMKSWTSTWEU4467-48-60 00:19:00 Test Item Value Reference Range Interpretation Comments aPTT (test code = aPTT) 37.9 s 22.9-35.8 [facility] UjkjaqyEUNZPQFNWF5239-20-31 00:19:008.5[facility] HermannHEMATOLOGY 2016-06-04 00:19:28264Cecdebwy ZycnuoySDCOUGSKSZ7012-02-80 00:19:0012.3[facility] OppwvbtDXDCYTJPUV6101-26-04 00:19:0033.0[facility] XbeqaglAJKLRZPVQG2192-07-93 00:19:0012.5[facility] RfnfovyZAFPPCDYXA0818-82-80 00:19:007.3[facility] [place] EBTKFJCDAW5352-42-04 00:19:003.98[facility] GnipnnyDNCBDLEQMK9365-89-15 00:19:00 38.0[facility] EysshjrTQIRMQXSAS1173-79-24 00:19:0095.4[facility] HermannHEMATOLOGY 2016-06-04 00:19:00 Test Item Value Reference Range Interpretation Comments MCH (test code = MCH) 31.5 pg 27.0-31.0 [facility] AwsaxivZJLEWFWFKZ4001-73-29 00:19:00 Test Item Value Reference Range Interpretation Comments PROTIME (test code = PROTIME) 13.9 s 12.0-14.7 [facility] KxxgsntGJPHVUOXFT8746-11-04 00:19:001.04[facility] HermannHEMATOLOGY 2016-06-04 00:19:004.5[facility] PmudfacEYUBMEZBES4300-42-60 00:19:007.1[facility] BwlsbpjAQGHBUWQFF2484-18-57 00:19:000.6[facility] BuybamjZXHQUHQHJB6530-94-44 00:19:000.7[facility] WdykzlkYHGAZQWOCI5789-74-05 00:19:002.2[facility] [place] RFGJGAPTRE5783-01-64 00:19:000.5[facility] AfpfduoDZOYBVTBDY9391-30-94 00:19:00 61.8[facility] AicoguoRPOCNPKDNJ4337-65-40 00:19:0029.8[facility] HermannURINE AND KDUQS9086-33-24 00:19:00Negative (06/03/16 7:19 PM)[facility] AND DBZYS2679-71-78 00:19:00Negative (06/03/16 7:19 PM)[facility] AND CXBND0854-11-04 00:19:00Negative *NA*(06/03/16 7:19 PM)[facility] AND HKDXJ2221-31-31 00:19:00Yellow *NA*(06/03/16 7:19 PM)[facility] NWDOI2682-90-77 00:19:00Negative (06/03/16 7:19 PM)[facility] EEYQB0001-09-29 00:19:002.0[facility]annUR[facility] AND IKNYG8176-77-96 00:19:00 Test Item Value Reference Range Interpretation Comments UA pH (test code = UA pH) 7.5 1 5.0-8.0 [facility]ann[facility] AND XXDFX5002-54-50 00:19:00Clear (06/03/16 7:19 PM) [facility] AHSIQ7203-03-87 00:19:00 Test Item Value Reference Range Interpretation Comments UA Spec Grav (test code = UA Spec 1.010 1 Grav) [facility] [place]
[2020-10-15] MEDS ORDERED: NA CHLORIDE 0.9% 250 ML ONE (10:12)
--- NOTE | 2020-10-15 10:28 | ER ---
Nurse's Notes [facility] Name: Maci Martines Age: 55 yrs Sex: Female : 1965 Arrival Date: 10/15/2020 Time: 07:42 Bed 13 Private MD: Diagnosis: Headache;Viral infection of unspecified site;Cough Presentation: 10/15 07:51 Chief complaint: Patient states: sore throat, cough, achy, runny nose, headache x 3 sv days. +COVID exposure. Coronavirus screen: Client presents with at least one sign or symptom that may indicate coronavirus-19. Standard/surgical mask placed on the client. Provider contacted for isolation considerations. Ebola Screen: No symptoms or risks identified at this time. Risk Assessment: Do you want to hurt yourself or someone else? Patient reports no desire to harm self or others. Onset of symptoms was October 12, 2020. 07:51 Method Of Arrival: Ambulatory sv 07:51 Acuity: TAYA 4 sv 07:52 Initial Sepsis Screen: Does the patient meet any 2 criteria? No. Patient's initial sv sepsis screen is negative. Does the patient have a suspected source of infection? No. Patient's initial sepsis screen is negative. Triage Assessment: 10:09 General: Appears in no apparent distress. Behavior is calm, cooperative, appropriate ll1 for age. 11:39 Headache History: The patient has had previous headaches and this one is similar to ll1 previous episodes. Pain: Pain currently is 7 out of 10 on a pain scale. Pain began 2-3 days ago. Also complains of no other associated symptoms. Historical: - Allergies: 07:52 No Known Allergies; sv - Immunization history:: Adult Immunizations up to date. - Social history:: Smoking status: Patient denies any tobacco usage or history of. Screenin:09 Abuse screen: Denies threats or abuse. Nutritional screening: No deficits noted. ll1 Tuberculosis screening: No symptoms or risk factors identified. Fall Risk None identified. Total Contreras Fall Scale indicates No Risk (0-24 pts). Assessment: 10:10 General: Appears ill, Behavior is calm, cooperative, appropriate for age. Pain: ll1 Complains of pain in head/throat Quality of pain is described as aching, Pain began 2-3 days ago. Neuro: Level of Consciousness is awake, alert, obeys commands, Oriented to person, place, time, situation, Appropriate for age Booker are equal bilaterally Moves all extremities. Full function Gait is steady, Speech is normal, Facial symmetry appears normal, Reports headache. Cardiovascular: No deficits noted. Respiratory: Reports cough that is non-productive, Airway is patent Trachea midline Respiratory effort is even, unlabored, Respiratory pattern is regular, symmetrical, Breath sounds are clear bilaterally. GI: No deficits noted. EENT: Throat is clear Reports nasal congestion pain when swallowing. Musculoskeletal: Circulation, motion, and sensation intact. Capillary refill < 3 seconds, Range of motion: intact in all extremities, Reports body aches, fatigue. Vital Signs: 07:52 BP 158 / 90; Pulse 82; Resp 16; Temp 97.4; Pulse Ox 99% ; Weight 65.77 kg; Height 5 ft. sv 0 in. (152.40 cm); 07:52 Body Mass Index 28.32 (65.77 kg, 152.40 cm) sv ED Course: 07:42 Patient arrived in ED. rg4 07:51 Triage completed. sv 07:52 Arm band placed on. sv 10:08 Marley Aguilar, KEESHA is Primary Nurse. ll1 10:08 Patient placed in an exam room, on a stretcher. ll1 10:08 Patient has correct armband on for positive identification. Bed in low position. Call ll1 light in reach. Side rails up X 1. Pulse ox on. NIBP on. Door closed. Warm blanket given. Head of bed elevated. 10:11 Daniel Guy MD is Attending Physician. kdr 11:39 No provider procedures requiring assistance completed. Patient did not have IV access ll1 during this emergency room visit. Administered Medications: 10:44 Drug: Ibuprofen 600 mg Route: PO; ll1 11:10 Follow up: Response: No adverse reaction; RASS: Alert and Calm (0) ll1 Outcome: 10:27 Discharge ordered by . kdr 11:10 Patient left the ED. ll1 11:10 Discharged to home ambulatory. ll1 11:10 Condition: stable 11:10 Discharge instructions given to patient, Instructed on discharge instructions, follow up and referral plans. Demonstrated understanding of instructions, follow-up care. Addendum: 10/20/2020 07:51 Addendum: COVID-19 Result: Negative result given to RN to notify pt. Notified pt of i w negative COVID 19 swab results. Pt advised that even with a negative test result they should remain in isolation until symptom free for 3 days without medication. Pt also advised to return to the ED for worsening symptoms. Signatures: Renae Bowden, RN RN Daniel Sevilla MD MD kdr Williams, Irene RN KEESHA Tom, Lisa 4 Marley Aguilar RN RN ll1
--- NOTE | 2020-10-15 10:28 | EDPHYS ---
Physician Documentation [facility] Name: Maci Martines Age: 55 yrs Sex: Female : 1965 Arrival Date: 10/15/2020 Time: 07:42 Bed 13 Private MD: ED Physician Daniel Guy HPI: 10/15 19:22 This 55 yrs old Female presents to ER via Ambulatory with complaints of Runny kdr Nose, Headache, Sore Throat. 19:22 The patient or guardian reports cough, that is intermittent, described as mild, with no kdr sputum, flu symptoms. Onset: The symptoms/episode began/occurred gradually, 3 day(s) ago. Severity of symptoms: At their worst the symptoms were very mild, in the emergency department the symptoms are unchanged. Modifying factors: The symptoms are alleviated by nothing, the symptoms are aggravated by nothing. Associated signs and symptoms: The patient has no apparent associated signs or symptoms, Pertinent positives: The patient is concerned that she has been exposed ot COVID with her grandson. The patient has not experienced similar symptoms in the past. The patient has not recently seen a physician. Historical: - Allergies: 07:52 No Known Allergies; sv - Immunization history:: Adult Immunizations up to date. - Social history:: Smoking status: Patient denies any tobacco usage or history of. ROS: 19:22 Constitutional: Negative for fever, chills, and weight loss, Eyes: Negative for injury, kdr pain, redness, and discharge, Neck: Negative for injury, pain, and swelling, Cardiovascular: Negative for chest pain, palpitations, and edema, Respiratory: Negative for shortness of breath, cough, wheezing, and pleuritic chest pain, Abdomen/GI: Negative for abdominal pain, nausea, vomiting, diarrhea, and constipation, Back: Negative for injury and pain, : Negative for injury, bleeding, discharge, and swelling, MS/Extremity: Negative for injury and deformity, Skin: Negative for injury, rash, and discoloration, Psych: Negative for depression, anxiety, suicide ideation, homicidal ideation, and hallucinations, Allergy/Immunology: Negative for hives, rash, and allergies, Endocrine: Negative for neck swelling, polydipsia, polyuria, polyphagia, and marked weight changes, Hematologic/Lymphatic: Negative for swollen nodes, abnormal bleeding, and unusual bruising. 19:22 ENT: Positive for nasal discharge, sore throat. 19:22 Neuro: Positive for headache, very mild, Negative for altered mental status, dizziness, hearing loss, loss of consciousness, numbness, seizure activity, syncope, near syncope, weakness. Exam: 19:22 Constitutional: This is a well developed, well nourished patient who is awake, alert, kdr and in no acute distress. Head/Face: Normocephalic, atraumatic. Eyes: Pupils equal round and reactive to light, extra-ocular motions intact. Lids and lashes normal. Conjunctiva and sclera are non-icteric and not injected. Cornea within normal limits. Periorbital areas with no swelling, redness, or edema. ENT: Nares patent. No nasal discharge, no septal abnormalities noted. Tympanic membranes are normal and external auditory canals are clear. Oropharynx with no redness, swelling, or masses, exudates, or evidence of obstruction, uvula midline. Mucous membranes moist. Neck: Trachea midline, no thyromegaly or masses palpated, and no cervical lymphadenopathy. Supple, full range of motion without nuchal rigidity, or vertebral point tenderness. No Meningismus. Chest/axilla: Normal chest wall appearance and motion. Nontender with no deformity. No lesions are appreciated. Cardiovascular: Regular rate and rhythm with a normal S1 and S2. No gallops, murmurs, or rubs. Normal PMI, no JVD. No pulse deficits. Respiratory: Lungs have equal breath sounds bilaterally, clear to auscultation and percussion. No rales, rhonchi or wheezes noted. No increased work of breathing, no retractions or nasal flaring. Abdomen/GI: Soft, non-tender, with normal bowel sounds. No distension or tympany. No guarding or rebound. No evidence of tenderness throughout. Back: No spinal tenderness. No costovertebral tenderness. Full range of motion. Skin: Warm, dry with normal turgor. Normal color with no rashes, no lesions, and no evidence of cellulitis. MS/ Extremity: Pulses equal, no cyanosis. Neurovascular intact. Full, normal range of motion. Neuro: Awake and alert, GCS 15, oriented to person, place, time, and situation. Cranial nerves II-XII grossly intact. Motor strength 5/5 in all extremities. Sensory grossly intact. Cerebellar exam normal. Normal gait. Psych: Awake, alert, with orientation to person, place and time. Behavior, mood, and affect are within normal limits. Vital Signs: 07:52 BP 158 / 90; Pulse 82; Resp 16; Temp 97.4; Pulse Ox 99% ; Weight 65.77 kg; Height 5 ft. sv 0 in. (152.40 cm); 07:52 Body Mass Index 28.32 (65.77 kg, 152.40 cm) sv MDM: 10:27 Patient medically screened. kdr 19:22 Data reviewed: vital signs, nurses notes, lab test result(s), radiologic studies. kdr Counseling: I had a detailed discussion with the patient and/or guardian regarding: the historical points, exam findings, and any diagnostic results supporting the discharge/admit diagnosis, lab results, radiology results, the need for outpatient follow up. 10/15 10:25 Order name: COVID-19 kdr 10/15 10:26 Order name: CORONAVIRUS EDMN Administered Medications: 10:44 Drug: Ibuprofen 600 mg Route: PO; ll1 11:10 Follow up: Response: No adverse reaction; RASS: Alert and Calm (0) ll1 Disposition: 10/15/20 10:27 Discharged to Home. Impression: Headache, Viral infection of unspecified site, Cough. - Condition is Stable. - Discharge Instructions: COVID-19. - Medication Reconciliation Form, Thank You Letter form. - Follow up: Private Physician; When: 2 - 3 days; Reason: If symptoms return, Further diagnostic work-up, Recheck today's complaints, Continuance of care, Re-evaluation by your physician. - Problem is new. - Symptoms are unchanged. Signatures: [facility] Renae Bowden RN RN Daniel Guy MD MD kdr Marley Aguilar RN RN ll1 Corrections: (The following items were deleted from the chart) 11:10 10:27 10/15/2020 10:27 Discharged to Home. Impression: Headache; Viral infection of ll1 unspecified site; Cough. Condition is Stable. Forms are Medication Reconciliation Form, Thank You Letter, Antibiotic Education, Prescription Opioid Use. Follow up: Private Physician; When: 2 - 3 days; Reason: If symptoms return, Further diagnostic work-up, Recheck today's complaints, Continuance of care, Re-evaluation by your physician. Problem is new. Symptoms are unchanged. kdr
[2020-10-15] MEDS ORDERED: IBUPROFEN 200 MG TAB PO ONE (10:49)
[2020-10-15] MEDS ORDERED: IBUPROFEN 400 MG TAB ONE (10:50)
[2020-10-15 16:18] VITALS: BP 158/90; TEMP 97.4; O2SAT 99
== END 2020-10-15 11:10 | disposition home or self-care (01) ==
LOC: ER 07:41
DX: B34.8 Other viral infections of unspecified site (principal); R05 Cough; Z20.828 Contact with and (suspected) exposure to other viral communicable diseases
CPT/HCPCS: 99283; U0002; Q0138; J7050

== ENCOUNTER 2020-11-11 08:22 | Day surgery (SDC) | payer OTHER ==
--- NOTE | 2020-11-11 08:26 | RAD REPORT ---
EXAM DESCRIPTION: Denae Dudley (2 Views)11/11/2020 8:19 am CLINICAL HISTORY: Preop for right axillary abscess drainage COMPARISON: July 2020 FINDINGS: The lungs appear clear of acute infiltrate. The heart is normal size IMPRESSION: No acute abnormalities displayed
--- OUTSIDE RECORDS SUMMARY | 2020-11-11 08:37 | XMS REPORT | Continuity of Care Document ---
:1965 Author Organization [facility] Information Center [place] Care Team Providers Name Role Phone [facility] Information Exchange Unavailable Un available Problems Problem Status Onset Classification Date Comments Sourc e Date Reported STROKE SYMPTOMS Active 06/03/20 [place] [place] 16 [place] CVA Active 06/03/20 [facility] 16 [place] Discharge 05/29/20 06/01/2016 [facility] Diagnosis: Common 16 Ct dical migraine Center MIRGRAINE Active 05/29/[address] Diabetes mellitus Resolved Problem 06/07/2016 M [facility] (disorder) [place] Hypertensive Resolved Problem 06/07/2016 disorder, [place] systemic arterial (disorder) Hyperlipidemia Resolved Problem 06/07/2016 (disorder) [place] Hypothyroidism Resolved Problem 06/07/2016 (disorder) [place] Migraine without Active Problem 06/07/2016 [facility] aura (disorder) [facility] CEREBRAL Active [facility] INFARCTION, [place] UNSPECIFIED Medications Medication Details Route Status Patient Ordering Order Source Instructions Provider Date Pneumovax 23 Notes: (Same Inactive as: Pneumovax [place] 23) Refrigerate {21 See Active (Methylprednisolo Instructions, 2015 [place] ne 4 MG Oral PO, Take by Tablet [Medrol]) mouth as } Pack [Medrol directed on Dosepak] label., X 6 day, # 1 Pack, 0 Refill(s) Aspirin 325 MG 325 mg = 1 Active Oral Tablet tab, PO, 2015 [place] Daily, # 30 tab, 0 Refill(s) Pneumovax 23 Notes: (Same Inactive as: Pneumovax 2015 [place] 23) Refrigerate pneumococcal Notes: (Same Inactive capsular as: Pneumovax 2015 [place] polysaccharide 23) type 1 vaccine / Refrigerate pneumococcal capsular polysaccharide type 10A vaccine / pneumococcal capsular polysaccharide type 11A vaccine / pneumococcal capsular polysaccharide type 12F vaccine / pneumococcal capsular polysacchar Aspirin Notes: Take Inactive with food. 2015 [place] potassium Notes: (Same No Longer chloride as: K-Dur 20) Active 2015 [place] "Do Not Crush" With food and full glass of water losartan 25 mg 25 mg = 1 Active oral tablet tab, PO, 2015 [place] Daily, 0 Refill(s) levothyroxine 125 125 microgram Active mcg (0.125 mg) = 1 cap, PO, 2015 [place] oral capsule Daily, # 30 cap, 3 Refill(s) Saline Flush 0.9% Notes: (Same No Longer as: BD Active 2015 [place] Posiflush) Saline Flush 0.9% Notes: (Same No Longer as: BD Active 2015 [place] Posiflush) tramadol 50 mg = 1 Active [place] hydrochloride 50 tab, PO, Q4H, 2015 edical MG Oral Tablet PRN Pain, X Cente r 10 day, # 60 tab, 0 Refill(s) [place] S PH-7.4 Notes: (Same Inactive H [place] (Bolus) IV as: [place]te S 2016 Medical PH 7.4) [place] tramadol Notes: Not to Inactive [place] hydrochloride 50 exceed 2016 Medical MG Oral Tablet 400mg/day. Center (Same As: [facility]) [place] Notes: (Same Inactive [place] as: Reglan) [address] [place] [address] Ketorolac 4 days [place]active [place] MEDICATION 2016 [facility] WASTE Center Product Size: 30 mg Product Wasted: ___ mg Diphenhydramine Notes: (Same Inactive [place] as: Benadryl) 2016 [facility] Sodium Chloride 1,000 mL, Inactive [place] [...] Comments Sour ce Given pneumococcal Right completed Shamjith [facility] 23-valent 6 Deltoid vaccine Results Order Name Results Value Reference Date Interpretation Comments Shari rce Range ELECTROLYTE AGAP 11.6 10.0 - 08/12 MH S 20.0 /2015 [place] ELECTROLYTE B/C Ratio 17 6 - 25 08/12 MH S /2015 [place] ELECTROLYTE A/G Ratio 0.7 0.7 - 1.6 08/12 MH S /2015 [place] ELECTROLYTE Globulin 4.4 2.7 - 4.2 08/12 MH S [place] ELECTROLYTE ALANINE 33 0 - 65 08/12 MH S AMINOTRANSFE [place] RASE ELECTROLYTE eGFR 115 /12 Result MH S Comment: The [place] eGFR is calculated using the CKD-EPI formula. [...] 0.3 0.2 - 1.3 08/12 MH S /2015 [place] ELECTROLYTE Calcium Lvl 8.9 8.5 - 10.5 /12 MH S /2016 [place] ELECTROLYTE CO2 25 24 - 32 08/12 MH S /2016 [place] ELECTROLYTE ASPARTATE 25 0 - 37 08/12 MH S TRANSAMINASE [place] ELECTROLYTE Total 7.5 6.4 - 8.4 08/12 MH S Protein [place] ELECTROLYTE Glucose Lvl 87 70 - 99 /12 MH S [place] ELECTROLYTE Alk Phos 100 39 - 136 /12 MH S [place] ELECTROLYTE Albumin Lvl 3.1 3.5 - 5.0 08/12 MH S [place] ELECTROLYTE Chloride Lvl 110 95 - 109 08/12 MH S /2015 [place] ELECTROLYTE Potassium 3.6 3.5 - 5.1 08/12 MH S Lvl /2015 [place] ELECTROLYTE BUN 8 7 - 22 08/ MH S /2015 [place] ELECTROLYTE Creatinine 0.47 0.50 - 08/12 MH S Lvl 1.40 /2015 [place] ELECTROLYTE Sodium Lvl 143 135 - 145 08/ MH S /2015 [place] HEMATOLOGY Hgb 12.1 12.0 - 08 MH 16.0 /2015 [place] HEMATOLOGY Hct 36.2 36.0 - 08/ MH 48.0 /2015 [place] HEMATOLOGY MCV 95.0 80.0 - 08 MH 98.0 /2015 [place] HEMATOLOGY WBC X 10x3 7.5 3.7 - 10.4 08/ MH /2015 [place] HEMATOLOGY RBC X 10x6 3.81 4.20 - 08 MH 5.40 /2015 [place] HEMATOLOGY MCH 31.8 27.0 - 08 MH 31.0 [place] HEMATOLOGY RDW 12.5 11.5 - 08 MH 14.5 /2015 [place] HEMATOLOGY MPV 8.2 7.4 - 10.4 08 /2015 [place] HEMATOLOGY MCHC 33.5 32.0 - 08 MH 36.0 [place] HEMATOLOGY Platelet 328 133 - 450 08 [place] HEMATOLOGY Lymphocytes 28.9 20.0 - 08 MH 40.0 [place] HEMATOLOGY Monocytes 8.2 2.0 - 12.0 06/04 [place] HEMATOLOGY Eosinophils 0.9 0.0 - 4.0 06/04 [place] HEMATOLOGY Basophils 1.3 0.0 - 1.0 08 [place] HEMATOLOGY Segs 60.7 45.0 - 08/ MH 75.0 /2015 [place] HEMATOLOGY Segs-Bands # 4.6 1.5 - 8.1 08 [place] HEMATOLOGY Monocytes # 0.6 0.0 - 0.8 06/04 [place] HEMATOLOGY Basophils # 0.1 0.0 - 0.2 08 [place] HEMATOLOGY Lymphocytes 2.2 1.0 - 5.5 08/ MH # /2015 [place] HEMATOLOGY Eosinophils 0.1 0.0 - 0.5 08/ MH # /2015 [place] CARDIAC CK-MB INDEX <1.1 0.0 - 2.5 / MH ENZYMES /2016 [place] CARDIAC CK MB <0.5 0.5 - 3.6 / MH ENZYMES /2016 [place] CARDIAC Total CK 47 12 - 191 06/04 MH ENZYMES /2016 [place] CARDIAC Troponin-I <0.02 0.00 - 08/ MH ENZYMES 0.40 /2016 [place] ELECTROLYTE Potassium 3.4 3.5 - 5.1 08/12 MH S Lvl /2016 [place] ELECTROLYTE CO2 27 24 - 32 08/ MH S /2016 [place] ELECTROLYTE Sodium Lvl 142 135 - 145 08/ MH S /2016 [place] ELECTROLYTE BUN 8 7 - 22 / MH S /2016 [place] ELECTROLYTE Chloride Lvl 109 95 - 109 06/04 MH S /2016 [place] ELECTROLYTE Creatinine 0.56 0.50 - 08/ MH S Lvl 1.40 [place] ELECTROLYTE AGAP 9.4 10.0 - 08 MH S 20.0 /2016 [place] ELECTROLYTE eGFR 108 / Result MH S /2016 Comment: The [place] eGFR is calculated using the CKD-EPI formula. [...] ELECTROLYTE Glucose Lvl 97 70 - 99 / MH S /2016 [place] ELECTROLYTE Calcium Lvl 8.9 8.5 - 10.5 08 MH S /2016 [place] HEMATOLOGY Eosinophils 0.6 0.0 - 4.0 06/04 MH /2015 [place] HEMATOLOGY Segs-Bands # 5.1 1.5 - 8.1 08/ MH /2016 [place] HEMATOLOGY Basophils 0.6 0.0 - 1.0 08/ MH /2015 [place] HEMATOLOGY Monocytes # 0.5 0.0 - 0.8 08/ MH /2015 [place] HEMATOLOGY Lymphocytes 2.2 1.0 - 5.5 08/12 MH # /2015 [place] HEMATOLOGY Plt Morph Normal 08/ MH (06/03/16 10:43 PM) /2015 [place] and HEMATOLOGY Segs 64.4 45.0 - 08 MH 75.0 /2015 [place] HEMATOLOGY RBC Morph Normal 08 MH (06/03/16 10:43 PM) /2015 [place] and HEMATOLOGY Lymphocytes 27.6 20.0 - 08 MH 40.0 /2015 [place] HEMATOLOGY Monocytes 6.8 2.0 - 12.0 08 MH /2015 [place] HEMATOLOGY aPTT 47.8 22.9 - 08 MH 35.8 /2015 [place] HEMATOLOGY INR 1.12 0.85 - 08 MH 1.17 /2015 [place] HEMATOLOGY PROTIME 14.7 12.0 - 08 MH 14.7 /2015 [place] HEMATOLOGY RDW 12.3 11.5 - 08 MH 14.5 /2015 [place] HEMATOLOGY Platelet 346 133 - 450 08/ MH /2015 [place] HEMATOLOGY MPV 8.2 7.4 - 10.4 08 MH /2015 [place] HEMATOLOGY Hgb 12.7 12.0 - 08 MH 16.0 [place] HEMATOLOGY Hct 38.2 36.0 - 08 MH 48.0 /2015 [place] HEMATOLOGY RBC X 10x6 3.99 4.20 - 08 MH 5.40 [place] HEMATOLOGY MCHC 33.2 32.0 - 08/ MH 36.0 [place] HEMATOLOGY MCV 95.7 80.0 - 08 MH 98.0 /2015 [place] HEMATOLOGY MCH 31.8 27.0 - 08 MH 31.0 [place] HEMATOLOGY WBC X 10x3 7.9 3.7 - 10.4 08/ MH /2015 [place] CARDIAC Troponin-I <0.02 0.00 - 08/12 MH ENZYMES 0.40 [place] CARDIAC CK MB <0.5 0.5 - 3.6 08/12 MH ENZYMES /2016 [place] CARDIAC Total CK 49 12 - 191 08/ MH ENZYMES /2016 [place] CARDIAC CK-MB INDEX <1.0 0.0 - 2.5 08/ MH ENZYMES /2016 [place] CHEM PANEL eGFR 105 / Result /2015 Comment: The [place] eGFR is calculated using the CKD-EPI formula. [...] PANEL B/C Ratio 15 6 - 25 08/12 MH /2016 [place] CHEM PANEL Globulin 4.8 2.7 - 4.2 08/ MH /2015 [place] CHEM PANEL ASPARTATE 28 0 - 37 08/ MH [place] CHEM PANEL AGAP 9.3 10.0 - 08/ MH 20.0 /2016 [place] CHEM PANEL A/G Ratio 0.7 0.7 - 1.6 / /2015 [place] CHEM PANEL Chloride Lvl 109 95 - 109 / MH /2015 [place] CHEM PANEL CO2 26 24 - 32 / MH /2015 [place] CHEM PANEL Creatinine 0.61 0.50 - 08/12 MH Lvl 1.40 /2016 [place] CHEM PANEL Sodium Lvl 141 135 - 145 08/ MH /2015 [place] CHEM PANEL Potassium 3.3 3.5 - 5.1 08/ MH Lvl /2016 [place] CHEM PANEL Total 8.2 6.4 - 8.4 / MH /2015 [place] CHEM PANEL Bili Total 0.3 0.2 - 1.3 / MH [place] CHEM PANEL Calcium Lvl 8.9 8.5 - 10.5 08/12 MH /2015 [place] CHEM PANEL BUN 9 7 - 22 08/ /2015 [place] CHEM PANEL ALANINE 37 0 - 65 08/ MH AMINOTRANS /2015 [place] RASE CHEM PANEL Albumin Lvl 3.4 3.5 - 5.0 08/ /2015 [place] CHEM PANEL Alk Phos 116 39 - 136 08/ /2015 [place] CHEM PANEL Glucose Lvl 129 70 - 99 08/ [place] HEMATOLOGY aPTT 37.9 22.9 - 08/ MH 35.8 /2015 [place] HEMATOLOGY MPV 8.5 7.4 - 10.4 08/ MH /2015 [place] HEMATOLOGY Platelet 353 133 - 450 08/ [place] HEMATOLOGY RDW 12.3 11.5 - 08 MH 14.5 [place] HEMATOLOGY MCHC 33.0 32.0 - 08 MH 36.0 [place] HEMATOLOGY Hgb 12.5 12.0 - 08 MH 16.0 [place] HEMATOLOGY WBC X 10x3 7.3 3.7 - 10.4 08/ MH /2015 [place] HEMATOLOGY RBC X 10x6 3.98 4.20 - 08 MH 5.40 /2015 [place] HEMATOLOGY Hct 38.0 36.0 - 08 MH 48.0 [place] HEMATOLOGY MCV 95.4 80.0 - 08 MH 98.0 /2015 [place] HEMATOLOGY MCH 31.5 27.0 - 08 MH 31.0 [place] HEMATOLOGY PROTIME 13.9 12.0 - 08 MH 14.7 [place] HEMATOLOGY INR 1.04 0.85 - 08 MH 1.17 /2015 [place] HEMATOLOGY Segs-Bands # 4.5 1.5 - 8.1 08/ /2015 [place] HEMATOLOGY Monocytes 7.1 2.0 - 12.0 08/ [place] HEMATOLOGY Basophils 0.6 0.0 - 1.0 / [place] HEMATOLOGY Eosinophils 0.7 0.0 - 4.0 08/ [place] HEMATOLOGY Lymphocytes 2.2 1.0 - 5.5 08/12 MH /2015 [place] HEMATOLOGY Monocytes # 0.5 0.0 - 0.8 08/ [place] HEMATOLOGY Segs 61.8 45.0 - 0812 75.0 /2015 [place] HEMATOLOGY Lymphocytes 29.8 20.0 - 06/04 40.0 [place] URINE AND UA WBC 0-2 /HPF None Seen 06/04 STOOL /HPF [place] URINE AND UA Sq Epi Occasional Few /LPF 06/04 STOOL /LPF /2015 [place] URINE AND UA Bacteria Occasional None Seen 06/04 STOOL /HPF /HPF [place] URINE AND UA Ketones Negative Negative 06/04 [facility]OOL mg/dL mg/dL [place] URINE AND UA Glucose Negative Negative 06/04 [place] mg/dL mg/dL [place] URINE AND UA Leuk Est Negative Negative 06/04 [place] (06/03/16 7:19 PM) /2015 [place] URINE AND UA Nitrite Negative Negative 06/04 [place] (06/03/16 7:19 PM) [place] URINE AND UA Bili Negative Negative 06/04 STOOL *NA* /2015 [place] (06/03/16 7:19 PM) URINE AND UA Color Yellow Yellow 06/04 STOOL *NA* /2015 [place] (06/03/16 7:19 PM) URINE AND UA Protein Negative Negative 06/04 [place] mg/dL mg/dL [place] URINE AND UA Blood Negative Negative 06/04 [place] (06/03/16 7:19 PM) [place] URINE AND UA 2.0 0.1 - 1.0 06/04 STOOL Urobilinogen /2015 [place] URINE AND UA pH 7.5 5.0 - 8.0 06/04 STOOL [place] URINE AND UA Turbidity Clear Clear 06/04 [place] (06/03/16 7:19 PM) [place] URINE AND UA Spec Grav 1.010 <=1.030 06/04 STOOL /2015 [place] Pathology Reports No Data Provided for This Section Diagnostic Reports Report Value Date Source Brain wo contrast MRI Patient Name: JULIAN SCHERER 06/04/2016 [facility] : 1965; Age: 50 years y/o Female MR: [id number] Study: Brain wo contrast MRI 06/03/2016 11:33 [...] unremarkable brain MRI without cont rast. SL: [facility] Brain/Neck CTA Study: Brain/Neck CTA 06/03/2016 8:15 PM CDT 05/24 [facility] Patient Name: JULIAN SCHERER MR: [id number] : 1965; Age: 50 years y/o Female [...] CT 06/03/2016 6 :21 PM CDT 06/03/2016 [facility] Patient Name: JULIAN SCHERER MR: [id number] : 1965; Age: 50 years y/o Female Ordering Physician: Devi Seras Clinical Indication: Acute g eneralized weakness. Migraine [...] : 1965; Age: 50 years Female MR: [id number] Study: Chest 1view DX Order Time: 06/03/2016 [...] follow-up chest x-ray to document resolution. SL: [id number] Brain wo contrast CT EXAM: CT BRAIN WITHOUT CONTRAST 05/29/2016 [facility] DATE: 05/29/2016 3:16 PM CDT Cente [...] Date Comments Source Heart Rate 76 06/04/2016 [facility] Temperature Oral (F) 97.9 F 06/04/2016 [place] Systolic (mm Hg) 149 06/04/2016 [place] Diastolic (mm Hg) 87 06/04/2016 [place] Respitory Rate 18 06/04/2016 [facility] Systolic (mm Hg) 144 06/04/2016 [facility] Diastolic (mm Hg) 95 06/04/2016 [facility] d Temperature Oral (F) 97.7 F 06/04/2016 [facility] Heart Rate 78 06/04/2016 [place] Respitory Rate 18 06/04/2016 [facility] Temperature Oral (F) 98.1 F 06/04/2016 [place] Systolic (mm Hg) 135 06/04/2016 [place] Diastolic (mm Hg) 89 06/04/2016 [place] Respitory Rate 18 06/04/2016 [facility] Heart Rate 69 06/04/2016 [facility] Height 152.4 cm 06/04/2016 [facility] Weight 71.903 06/04/2016 [facility] BMI Calculated 30.96 06/04/2016 [facility] Weight 71.364 06/03/2016 [facility] BMI Calculated 30.73 06/03/2016 [facility] Height 152.4 cm 06/03/2016 [place] Respitory Rate 18 05/29/2016 [facility] Temperature Oral (F) 99.8 F 05/29/2016 [facility] Systolic (mm Hg) 127 05/29/2016 [facility] Diastolic (mm Hg) 67 05/29/2016 [facility] Heart Rate 96 05/29/2016 [facility] Temperature Oral (F) 100.9 F 05/29/2016 [facility] Heart Rate 91 05/29/2016 [facility] Respitory Rate 18 05/29/2016 [facility] Systolic (mm Hg) 149 05/29/2016 [facility] Diastolic (mm Hg) 61 05/29/2016 [facility] Systolic (mm Hg) 149 05/29/2016 [facility] Diastolic (mm Hg) 79 05/29/2016 [facility] Temperature Oral (F) 99.5 F 05/29/2016 [facility] Heart Rate 98 05/29/2016 [facility] Respitory Rate 22 05/29/2016 [facility] BMI Calculated 30.73 05/29/2016 [facility] Height 152.4 cm 05/29/2016 [facility] Weight 71.364 05/29/2016 [facility] Encounters Location Location Encounter Encounter Reason Attending ADM DC Stat us Source Details Type Number For Provider Date Date Visit [facility] EC [id number] Bill 05/29 05/30 [facility] Emergency Nehemiah /2015 [facility] [id number] Ayyash 06/03 06/04 [facility] [place] /2015 [facility] Procedures Procedure Code Date Perfomer Comments Source Gallbladder [id number] [facility] operation Hysterotomy [id number] [facility] Assessment and Plan Assessment and Plan Date Source Extracted from:Title: Teleneurology Consultation 06/04/2016 [facility] Author: Halina Poe MD Date: 06/04/16 TELEMEDICINE NEUROLOGY - CONSULTATION Date of Consult: 06/04/16 CC: slurred speech and severe headache HISTORY OF PRESENT ILLNESS: 50 year old with HTN, DM, HL, lupus (has a aviation project manager) and fibromyalgia who was admitted yesterday with [...] r 0 1c. LOC Commands open/close eyes, social services counselor /release non-paretic hand; 0-both 1-one 2-neither 0 [...] to evaluate if this should be continued snf. -Would prescribe Medrol dose pack in oralia e headache returns before patient follows up with neurologist. Patient has also been advised to take magnesium over the counter daily to prevent headache and encouraged PO fluid intake, rest when needed. -Elevated PTT on one read, patient has a n appointment with her aviation project manager in 07/2016 would have it rechecked at that time, and if not done yet evaluate for lupus anticoagulant. At this point however there is no change in management. -Neurology follow up. Patient understand s the importance of neurology follow up for chronic migraine headache management. She was provided the phone number for [facility] ([phone]) if she would like to follow up [...] with any interim questions. Halina Poe MD Hydro Station Operator, Neurology Call center [phone] Addendum by Halina Poe MD on 06/04/2016 11:18 No further recommendations from neurolog y aside from formal swallow eval and outpatient follow up as described in plan below. Please call if any additional questions. Plan of Care No Data Provided for This Section Social History Social History Date Source Social History TypeResponse 06/04/2016 [facility] Smoking Status Never smoker; Ready to change: No; Shwetha rns about tobacco use in household: No; Exposure to Tobacco Smoke None; Cigarette Smoking Last 365 Days No; Reg Smoking Cessation Counseling No Social History TypeResponse 05/29/2016 [facility] Smoking Status Never smoker; Ready to change: No; Shwetha rns about tobacco use in household: No; Exposure to Tobacco Smoke None; Cigarette Smoking Last 365 Days No; Reg Smoking Cessation Counseling No Family History No Data Provided for This Section Advance Directives No Data Provided for This Section Functional Status No Data Provided for This Section
--- OUTSIDE RECORDS SUMMARY | 2020-11-11 08:37 | XMS REPORT | Continuity of Care Document ---
:1965 Author Organization [facility] t Address [address] [place] [address] Care Team Providers Name Role Phone Missy Cabrera MD Attending Clinician [phone] Isiah Oneal MD Attending Clinician Doctor [...] oria SYMPTOMS 06-03 18:44:00 l STROKE 00:00: Dean SYMPTOMS 00 Active 06/03/2016 [facility] [place] CVA Diagnosis Active 2016-06-08 Mem oria 06-03 09:35:00 l CVA 00:00: [place] 00 Active 06/03/2016 [facility] Dean MIRGRAINE Diagnosis Active 2016-05-29 Memoria 05-29 15:03:00 l 00:00: [place] MIRGRAINE 00 Active 05/29/2016 [facility] Diabetes Problem Resolve 2016-06-07 Me moria mellitus d 03:01:56 l (disorder) Diabetes He rmann mellitus (disorder) Resolved Problem 06/07/2016 [facility] Hypertensi Problem Resolve 2016-06-07 Memoria ve d 03:01:56 l disorder, Dean systemic Hypertensi arterial ve (disorder) disorder, systemic arterial (disorder) Resolved Problem 06/07/2016 [facility] Hyperlipid Problem Resolve 2016-06-07 Memoria emia d 03:01:56 l (disorder) Farzad n Hyperlipid emia (disorder) Resolved Problem 06/07/2016 [facility] Hypothyroi Problem Resolve 2016-06-07 Memoria dism d 03:01:56 l (disorder) Farzad n Hypothyroi dism (disorder) Resolved Problem 06/07/2016 [facility] Migraine Problem Active 2016-06-07 Mem oria without 03:01:56 l aura Migraine Farzad n (disorder) without aura (disorder) Active Problem 06/07/2016 [facility] CEREBRAL Diagnosis Active 2016-06-08 M emoria INFARCTION 09:35:00 l , CEREBRAL Farzad n UNSPECIFIE INFARCTION D , UNSPECIFIE D Active [facility] Discharge Problem 2016-06-01 2016-06-01 Memoria Diagnosis: 8-06 01:52:24 01:52:24 l Common 05:00: Dean migraine Discharge 00 Diagnosis: Common migraine 6 06/01/2016 [facility] Allergies, Adverse Reactions, Alerts This patient has no known allergies or adverse reactions. Social History Smoking Status Start Date Stop Date Source Social History [facility] Medications Ordered Filled Start Stop Current Ordering Indication Dosage Frequency Signature Comments Components Source Medication Medication Date Date Medication? Clinician (SIG) Name Name Pneumovax No Notes: Memori a 23 06-04 (Same as: l 20:44: Pneumovax Dean 00 23) Refrigerat e { Yes See Memoria (Methylpred 06-04 Instructio l nisolone 4 20:31: ns, PO, Herm maximilian MG Oral 00 Take by Tablet mouth as [Medrol]) } directed Pack on label., [Medrol X 6 day, # Dosepak] 1 Pack, 0 Refill(s) Aspirin 325 Yes 325 mg = 1 Memoria MG Oral 8-12 tab, PO, l Tablet 20:31: Daily, # [place] 00 30 tab, 0 Refill(s) Pneumovax No Notes: Memori a 23 8-12 (Same as: l 15:00: Pneumovax [place] 00 23) Refrigerat e pneumococca No Notes: [...] Memoria 8-12 Take with l 14:00: food. [place] 00 potassium No Notes: Memori a chloride 8-12 (Same as: l 04:49: K-Dur 20) Dean "Do Not Crush" With food and full glass of water losartan 25 Yes 25 mg = 1 M emoria mg oral 8-12 tab, PO, l tablet 03:55: Daily, 0 [place] 00 Refill(s) levothyroxi Yes 125 Memori a [...] Memoria 05-29 (Same as: l 19:47: Reglan) [place] Ketorolac No 4 days Memor ia 05-29 l 19:47: MEDICATION [place] WASTE Product Size: 30 mg Product Wasted: ___ mg Diphenhydra No Notes: Schuyler yonis mine 05-29 (Same as: l 19:45: Benadryl) Dean Sodium No 1,000 mL, Memori a Chloride 05-29 2,000 l 0.154 19:45: ml/hr, [place] MEQ/ML 00 Infuse Injectable Over: 30 Solution [...] Systolic (mm Hg) 2016-06-04 21:08:00 Schuyler rial [place] Diastolic (mm Hg) 2016-06-04 21:08:00 Mem orial [place] Respitory Rate 2016-06-04 21:08:00 Memori al [place] Systolic (mm Hg) 2016-06-04 16:48:00 Schuyler rial [place] Diastolic (mm Hg) 2016-06-04 16:48:00 Mem orial [place] Temperature Oral (F) 2016-06-04 16:48:00 97.7 F [facility] Heart Rate 2016-06-04 16:48:00 [facility] [place] Respitory Rate 2016-06-04 16:48:00 Memori al [place] Temperature Oral (F) 2016-06-04 12:33:00 98.1 F [facility] [place] Systolic (mm Hg) 2016-06-04 12:33:00 Schuyler rial [place] Diastolic (mm Hg) 2016-06-04 12:33:00 Mem orial [place] Respitory Rate 2016-06-04 12:33:00 Memori al [place] Heart Rate 2016-06-04 12:33:00 [facility] [place] Height 2016-06-04 03:42:00 152.4 cm [facility] [place] Weight 2016-06-04 03:42:00 [facility] [place] BMI Calculated 2016-06-04 03:42:00 Memori al [place] Weight 2016-06-03 23:16:00 [facility] [place] BMI Calculated 2016-06-03 23:16:00 Memori al [place] Height 2016-06-03 23:16:00 152.4 cm [facility] [place] Respitory Rate 2016-05-29 23:47:00 Memori al [place] Temperature Oral (F) 2016-05-29 23:47:00 99.8 F [facility] [place] Systolic (mm Hg) 2016-05-29 23:47:00 Schuyler rial [place] Diastolic (mm Hg) 2016-05-29 23:47:00 Mem orial [place] Heart Rate 2016-05-29 23:47:00 [facility] Temperature Oral (F) 2016-05-29 21:03:00 100.9 F [facility] Heart Rate 2016-05-29 21:03:00 [facility] [place] Respitory Rate 2016-05-29 21:03:00 Memori al [place] Systolic (mm Hg) 2016-05-29 21:03:00 Schuyler rial [place] Diastolic (mm Hg) 2016-05-29 21:03:00 Mem orial [place] Systolic (mm Hg) 2016-05-29 19:01:00 Schuyler rial [place] Diastolic (mm Hg) 2016-05-29 19:01:00 Mem orial [place] Temperature Oral (F) 2016-05-29 19:01:00 99.5 F [facility] [place] Heart Rate 2016-05-29 19:01:00 [facility] [place] Respitory Rate 2016-05-29 19:01:00 Memori al [place] BMI Calculated 2016-05-29 19:01:00 Memori al [place] Height 2016-05-29 19:01:00 152.4 cm [facility] Weight 2016-05-29 19:01:00 [facility] Procedures Procedure Date / Time Performed Performing Clinician [facility] e Gallbladder operation [facility] H ermann Hysterotomy [facility] Encounters Start End Encounter Admission Attending Care Care Encounter Source Date/Time Date/Time Type Type Clinicians Facility Department ID 2020-09-02 2020[facility]09[facility]02 [id number] 00:00:00 00:00:00 Missy Matson [place] [id number] [place] 4.2.7.2.686 Professio [id number] [facility] [address] [facility] 2020-07-02 2020-07-02 [facility] 1.2.840.114 [id number] 06:46:00 10:22:00 Encounter Steve Joyce [place] [id number] [place] [id number] Surgical [id number] [place] 07 2020-07-02 2020-07-02 Orders Doctor JUSTIN 1.2.840.114 [id number] 00:00:00 00:00:00 Only Unassigned, RENA 350.1.13.10 [place] [facility] 4.2.7.2.686 [id number] 2020-07-01 2020-07-01 Incident Engineer Doris [facility] [id number] 08:56:05 10:00:30 Visit Lab Main [place] 350.1.13.10 [place] 4.2.7.2.686 Professio [id number] [facility] [address] [facility] 2020-07-01 2020-07-01 Laboratory Only, [facility] [id number] 08:51:03 09:06:03 Only Test Letty 350.1.13.10 [place] 4.2.7.2.686 [place] [id number] 353 2016-06-03 2016-06-04 Outpatient CARTER White [id number] 18:06:00 18:25:00 Kemal Thornton 2016-05-29 2016-05-29 [id number] 13:59:00 19:17:00 Bill Farzana Alejo Results Test Description Test Time Test Comments [...] code = MCH) 31.8 pg 27.0-31.0 [facility] SavddjbALOZHBWGQQ4350-42-40 10:10:0012.5[facility] 2016-06-04 10:10:008.2[facility] SxszmhtITOLLTQHVU9934-00-42 10:10:0033.5[facility] JyvdfmhKFFJUKKLEV9242-02-49 10:10:02618Dvjikcdy LgjddnrNQWKHGFCZP7857-63-77 10:10:0028.9[facility] FpfmsnhCZXROHIVZN6271-13-53 10:10:008.2[facility] TZNBZPGDNI2655-91-53 10:10:000.9[facility] FeqsekgTLQXWYKGPY6477-51-55 10:10:001.3 [facility] OaojfygTHZZRUXQYO4534-68-70 10:10:0060.7[facility]ann[facility]MATOLOGY 2016-06-04 10:10:004.6[facility] DybozqqRFTGRBELVG6621-80-53 10:10:000.6[facility] SjribinZOYGPWKNXY9107-36-68 10:10:000.1[facility] XwolporXQYMOIESEZ6856-69-27 10:10:002.2[facility] BcryvxuPDSOZQSJAI9313-02-61 10:10:000.1[facility] [place] CARDIAC RMQTKFE1279-08-44 03:43:00<1.1[facility]annCARDIAC ENZYMES 2016-06-04 03:43:00<0.5[facility]annCARDIAC XMNTJVX2514-18-70 03:43:0047 [facility] ROSLMXZ6761-45-28 03:43:00<0.02[facility] FHCTYJKNRDWU7298-46-90 03:43:003.4[facility] XlvannqSSSWHWNLZSCG6507-02-41 03:43:0027[facility] BhdvxsxGBPZNCKCFTAI1324-52-85 03:43:10884Wpbkkbin Dean BTWFPDGMBZWJ4283-06-77 03:43:008[facility] HxmgttiHFDIUCBHIGSI6822-75-28 03:43:00 109[facility] YvlnbebLKIKBTBWCPYS5169-71-16 03:43:000.56[facility] WHMOTCSZDWYL6751-85-16 03:43:009.4[facility] VppitelJGSFBUGLORXB9815-89-01 03:43:12276Ainhgxlg CmxbvvcKASSYLGBUYPL4311-41-82 03:43:0097[facility] ONZHHZSNABCJ6867-06-78 03:43:008.9[facility] YxdfteyRLBSEUMCSZ8143-57-39 03:43:00 0.6[facility] GqfbirkQJFLVPRQQZ5648-60-84 03:43:005.1[facility]annHEMATOLOGY 2016-06-04 03:43:000.6[facility] IpxlsviPLECUHPTMO2856-30-12 03:43:000.5[facility] KofhsjsSKJPINCBGP5715-33-76 03:43:002.2[facility] DwmiziqBYQUZEFXWN7118-97-16 03:43:00Normal (06/03/16 10:43 PM)[facility] WtvsdroMLBFELGFYP3682-37-58 03:43:00 64.4[facility] XyzjtmdSPFGXMUSQH8681-66-40 03:43:00Normal (06/03/16 10:43 PM) [facility] PmbiujqYSXMEDVBEZ1008-13-06 03:43:0027.6[facility]ann[facility]MATOLOGY 2016-06-04 03:43:006.8[facility] BadcopySMGGXUYDJK2745-57-89 03:43:00 Test Item Value Reference Range Interpretation Comments aPTT (test code = aPTT) 47.8 s 22.9-35.8 [facility] RqbgytwAKKZSPCUJM8332-70-67 03:43:001.12[facility]ann[facility]MATOLOG[facility] 2016-06-04 03:43:00 Test Item Value Reference Range Interpretation Comments PROTIME (test code = PROTIME) 14.7 s 12.0-14.7 [facility] DkyfmdhUUZLPIFCFU0495-97-34 03:43:0012.3[facility]annHEMATOLOGY 2016-06-04 03:43:78383Xmtthlol PlybzwlGZFWMUZGKV2201-65-86 03:43:008.2[facility] QscvvjgMJFNIKPHHA9841-40-62 03:43:0012.7[facility] FidqxnjJOLNDJVUVM8330-51-98 03:43:0038.2[facility] IoqcyftUHLHEAAALQ2534-25-24 03:43:003.99[facility] [place] BRNFBKRFHY5713-04-37 03:43:0033.2[facility] YwwtdxfMAXKBKXYPT4403-31-95 03:43:00 95.7[facility] XxcywzvOZXIVIHWNO8438-91-48 03:43:00 Test Item Value Reference Range Interpretation Comments MCH (test code = MCH) 31.8 pg 27.0-31.0 [facility] GkzggylGOXHRWBFXH5333-25-41 03:43:007.9[facility]annCARDIAC ENZYMES 2016-06-04 00:19:00<0.02[facility]annCARDIAC FDDFBYT3967-87-03 00:19:00 <0.5[facility]annCARDIAC ZMIDLVS3767-18-00 00:19:0049[facility] CARDIAC AVUWJZW0739-51-62 00:19:00<1.0[facility] HermannCHEM YNGLH5050-54-63 00:19:78303Dyqzwyur HermannCHEM VMRCO7302-75-35 00:19:0015[facility] HermannCHEM NOFPS4979-68-27 00:19:004.8[facility] HermannCHEM HDVRH8604-10-16 00:19:0028 [facility]annCHEM HCRFD6951-65-02 00:19:009.3[facility]annCHEM PANEL 2016-06-04 00:19:000.7[facility] HermannCHEM NXUDZ6275-29-35 00:19:41222Tmzexbjh HermannCHEM ECBTC6759-33-80 00:19:0026[facility] HermannCHEM PANCT3182-04-81 00:19:000.61[facility] HermannCHEM GSAWA2721-38-30 00:19:48638Jkjvggol HermannCHEM OBSXW5015-42-39 00:19:003.3[facility] HermannCHEM EOCYW3633-55-91 00:19:008.2 [facility]annCHE[facility] HHQKR6265-55-44 00:19:000.3[facility] HermannCHEM PANEL 2016-06-04 00:19:008.9[facility] HermannCHEM APFOG4039-31-22 00:19:009[facility] HermannCHEM CMQAA6021-66-28 00:19:0037[facility] HermannCHEM SGYSO3974-24-65 00:19:003.4[facility] HermannCHEM YODHW5763-87-78 00:19:43129Prryosbu HermannCHEM AXHWL1338-43-12 00:19:40241Eybtqwyo KnleuxvMJFIEGAUJM0596-86-46 00:19:00 Test Item Value Reference Range Interpretation Comments aPTT (test code = aPTT) 37.9 s 22.9-35.8 [facility] PnceltcOCLIQCEECI7398-16-61 00:19:008.5[facility]annHEMATOLOGY 2016-06-04 00:19:11225Xrleadbj QgawvsqWDNJAQHIPA6782-44-63 00:19:0012.3[facility] QlvxuqzOOVRJWNGMX3243-22-82 00:19:0033.0[facility] QvdndkwIJDGOCMNBU0378-64-90 00:19:0012.5[facility] IejdfgdKRZLHDZQSP9870-28-63 00:19:007.3[facility] [place] FOYNMBRBLQ9632-36-88 00:19:003.98[facility] IlweebmSFOJNNSHEB3241-35-33 00:19:00 38.0[facility] ZflqjyjLGSLTCAPRG5848-85-31 00:19:0095.4[facility] HermannHEMATOLOGY 2016-06-04 00:19:00 Test Item Value Reference Range Interpretation Comments MCH (test code = MCH) 31.5 pg 27.0-31.0 [facility] JzcgdgwHIHQAOEOAT8010-98-95 00:19:00 Test Item Value Reference Range Interpretation Comments PROTIME (test code = PROTIME) 13.9 s 12.0-14.7 [facility] VekeqhhUVZKPZTZRR9401-00-97 00:19:001.04[facility]annHEMATOLOGY 2016-06-04 00:19:004.5[facility] BcyagnvFPLHCNEBEM2214-40-75 00:19:007.1[facility] GpehaezKFVHYFTPWQ5689-94-97 00:19:000.6[facility] GmlozowDKMIFGLQTJ6933-58-35 00:19:000.7[facility] BsozrnnPGTYHONUAH4384-85-28 00:19:002.2[facility] LWKQBWMLUQ3507-16-45 00:19:000.5[facility] GaflupgYGFSINVVJP3182-19-40 00:19:00 61.8[facility] ClbajnqAAHWBLLJOZ0558-99-82 00:19:0029.8[facility] HermannURINE AND HWJKJ4240-20-46 00:19:00Negative (06/03/16 7:19 PM)[facility] AND EZEJP7384-27-46 00:19:00Negative (06/03/16 7:19 PM)[facility] AND ZHUAS9014-57-59 00:19:00Negative *NA*(06/03/16 7:19 PM)[facility] RSBPE5123-99-83 00:19:00Yellow *NA*(06/03/16 7:19 PM)[facility] PPMKW8825-11-41 00:19:00Negative (06/03/16 7:19 PM)[facility] AND VDZVN1308-48-50 00:19:002.0[facility]ann[facility] AND PGCJI2555-28-08 00:19:00 Test Item Value Reference Range Interpretation Comments UA pH (test code = UA pH) 7.5 1 5.0-8.0 [facility] KEEKG5664-78-18 00:19:00Clear (06/03/16 7:19 PM) [facility] TJEBE5545-34-04 00:19:00 Test Item Value Reference Range Interpretation Comments UA Spec Grav (test code = UA Spec 1.010 1 Grav) [facility] [place]
[2020-11-11 08:44] LABS: Absolute Lymphocytes (CBC) 2.7 K/uL (0.7-4.9); Basophils % 1.2 % (0-1.3); Lymphocytes % 18.4 % (15.3-44.8); MPV 11.6 fL (7.6-11.3); RBC Red Blood Cell Count 4.53 M/uL (3.86-4.86)
[2020-11-11 08:58] LABS: BUN Blood Urea Nitrogen 11 mg/dL (7-18); Bicarbonate 24 mmol/L (21-32); Glucose Level 273 mg/dL (74-106); Sodium Level 137 mmol/L (136-145)
[2020-11-11 09:14] LABS: Blood Morphology Comment NOT SEEN (NOT SEEN); Platelet Estimate ADEQ; Platelets, Giant FEW; White Blood Cell Scan OK (OK)
[2020-11-11] MEDS ORDERED: NA CHLORIDE 0.9% 1,000 ML ONE (09:29)
[2020-11-11] MEDS ORDERED: CEFAZOLIN/SWI 1gm 1 GM/10 ML SYR ONE (09:30)
[2020-11-11] MEDS ORDERED: BUPIVACAINE 0.5% PF 10 ML VIAL ONE (11:42)
[2020-11-11] MEDS ORDERED: FENTANYL CITR 100 MCG/2 ML ONE (11:52)
[2020-11-11] MEDS ORDERED: MIDAZOLAM HCL 2 MG/2 ML INJ ONE (11:52)
[2020-11-11] MEDS ORDERED: propofoL 200 MG/20 ML VIAL IV ONE (11:52)
[2020-11-11] MEDS ORDERED: dexAMETHasone 10 MG/ML VIAL ONE (11:53)
[2020-11-11] MEDS ORDERED: LIDOCAINE 2% MPF 5 ML VIAL ONE (11:53)
[2020-11-11] MEDS ORDERED: ONDANSETRON 4 MG/2 ML VIAL ONE (12:03)
--- NOTE | 2020-11-11 12:20 | P.BOP ---
Preoperative diagnosis: right axillary complex abscess Postoperative diagnosis: same Primary procedure: Incision and drainage subQ debridment of necrotic tissue R axilla abscess Secondary procedure: 4x3x1.5 cm Estimated blood loss: <10cc Specimen: pus, necrotic tissue Findings: complex abscess with necrotic tissue Anesthesia: General Complications: None Transferred to: Recovery Room Condition: Good
[2020-11-11] MEDS ORDERED: KETOROLAC 30 MG/ML INJ ONE (12:29)
[2020-11-11 12:59] VITALS: O2SAT 96
[2020-11-11 13:27] VITALS: BP 128/54; TEMP 97.2
--- NOTE | 2020-11-11 13:28 | OP ---
Surgeon: Acosta Subramanian MD Diagnosis: Right axillary complex abscess. Procedure: Incision and drainage and subcutaneous debridement of necrotic abscess, right axilla. Disposition: Home. Activity: As tolerated. No heavy lifting. Plan: Follow up in my office in 1 week. Call for appointment at [phone]. The patient will be christopher g dressing changes. She has a family member and knows how to do so. We provided already with a sali ne prescription. May take a shower with dressings off. CASSIUS/HEIDI Voice ID: [id number] Report ID: [id number]
--- NOTE | 2020-11-11 14:25 | OP ---
Date of Procedure: 11/11/2020 Surgeon: Acosta Subramanian MD Preoperative Diagnosis: Right axillary complex cellulitis and abscess. Postoperative Diagnosis: Right axillary complex cellulitis and abscess. Procedure: Incision and drainage with subcutaneous debridement of the right necrotic and left axilla ry abscess, 4 x 3 x 1.5 cm. Specimen: Pus and necrotic tissue. Finding: Complex abscess, multiple loculations, necrotic tissue present. Anesthesia: General plus local. Indications: This is the case of a 55-year-old patient, who developed sudden redness and swelling of the right axillary region with redness, tenderness, diagnosed with an abscess and cellulitis and imm ediately booked for incision and drainage with debridement of necrotic tissue with benefits, alternat rashawn, and risks including, but not limited to infection, bleeding, damage to adjacent structures, ane sthesia complication, [place], and even . She also understands this may not relieve any symptoms. S he may need more than one surgical intervention. She understands how to the wound care. Yesterday, we gave her antibiotics and pain medications and saline. Procedure In Detail: The patient was brought to the operating room and placed in supine position. A nesthesia was done without complication. A time-out was called. The right axillary area was prepped and draped in the usual sterile fashion. Since the patient had necrotic tissue in the center that t issue have to be removed that would give us access to an abscess with multiple loculations that were explored and opened, pus was irrigated after culture. Necrotic tissue was removed, sent to the patho logist for identification, and the area was packed with wet-to-dry dressing after local anesthetic an d after hemostasis. The patient tolerated the procedure well. The patient sent to Recovery in stabl e condition. HM/MODL Voice ID: [id number] Report ID: [id number]
--- NOTE | 2020-11-11 17:14 | EKG ---
Test Date: 2020-11-11 Test Time: 08:00:35 Supervisor [employer]: [place] MEASUREMENT RESULTS: Intervals: Rate: 82 [place]: 166 QRSD: 86 QT: 398 QTc: 464 [place]: P: 41 [place]: 166 QRS: -4 T: 26 INTERPRETIVE STATEMENTS: Normal sinus rhythm Normal ECG Compared to ECG 08/11/2020 17:48:24 No significant changes Electronically Signed On 11-11-20 17:12:49 MATE CHIEF by Jeffrey Lance
== END 2020-11-11 13:50 | disposition home or self-care (01) ==
LOC: OR 08:22
PROVIDERS: ATTEND Surgery
PROC: 0JBD0ZZ Excision of Right Upper Arm Subcutaneous Tissue and Fascia, Open Approach (ICD-10-PCS; principal; 2020-11-11 11:00)
DX: L02.411 Cutaneous abscess of right axilla (principal); L03.111 Cellulitis of right axilla; I96 Gangrene, not elsewhere classified; E03.9 Hypothyroidism, unspecified; E11.9 Type 2 diabetes mellitus without complications; I10 Essential (primary) hypertension; E78.00 Pure hypercholesterolemia, unspecified
CPT/HCPCS: 93005; 87070; 85025; 80048; 36415; 87205 ×2; 82947 ×2; 88304; 87075; 71046; 11042; J2704; J2250; J3010; J0690; J7030; J2405; 87077; 87186; 88302; J1100